=== PATIENT | male | born 1950 | race Caucasian/White ===

== ENCOUNTER 2023-05-01 17:01 | Inpatient (IN) | payer MEDICARE, SELFPAY ==
[~2023-05-01 17:01] MED LIST: Iopamidol-370 76% 500 ML MDV (1 ML CHARGE) ONE
[2023-05-01 18:03] LABS: #Eosinphils 0.3 thou/uL (0.0-0.7); #Monocytes 0.9 thou/uL (0.11-0.59); #Neutrophils 6.3 thou/uL (1.40-6.50); %Basophils 0.2 % (0.0-1.0); %Eosinophils 3.9 % (0.0-10.0); %Lymphocytes 12.5 % (21.0-51.0); %Neutrophils 72.7 % (42.0-75.0); Hematocrit 24.7 % (42.0-52.0); Mean Corpuscular HGB CONC 32.4 g/dL (32.0-36.0); Mean Corpuscular Hemoglobin 30.2 pg (27.0-31.0); Mean Corpuscular Volume 93.2 fl (78.0-98.0); Mean Platelet Volume 9.3 fL (7.4-10.4); Platelet Count 198 10x3/uL (130-400); RBC Distribution Width 15.3 % (11.5-14.5); Red Blood Cell (RBC) Count 2.65 mill/uL (4.70-6.10); White Blood Cell (WBC) Count 8.6 10x3/uL (4.8-10.8)
[2023-05-01 18:25] LABS: ALT (SGPT) 8 U/L (8-55); AST (SGOT) 11 U/L (5-34); Albumin 3.5 g/dL (3.4-4.8); Alkaline Phosphatase 52 U/L (40-110); Anion Gap 15 mmol/L (10-20); BUN (Urea Nitrogen) 19 mg/dL (8.4-25.7); Bilirubin, Total 0.4 mg/dL (0.2-1.2); Calc. Creatinine Clearance 0 mL/min (70-130); Calcium 8.5 mg/dL (7.8-10.44); Carbon Dioxide 23 mmol/L (23-31); Chloride 104 mmol/L (98-107); Estimated GFR 65; Globulin 3.3 g/dL (2.4-3.5); Glucose 104 mg/dL (83-110); Potassium 2.9 mmol/L (3.5-5.1); Protein, Total 6.8 g/dL (5.8-8.1); Sodium 139 mmol/L (136-145)
[2023-05-01 18:29] LABS: Troponin I 0.013 ng/mL (< 0.028)
[2023-05-01 19:27] LABS: Bacteria/HPF None Seen HPF (None Seen); Bilirubin Negative (Negative); Blood, Urine 1+ (Negative); CAUTI Indications for Culture Pelvic or flank pain; Clarity Extra Turbid (Clear); Glucose, Urine (Dipstick) Normal (Negative); Ketone, Urine Negative (Negative); Leukocyte Negative Leu/uL (Negative); Nitrite Negative (Negative); Protein, Urine (Dipstick) 100 mg/dL (Neg-Trace); RBC/HPF 0-3 HPF (0-3); Specific Gravity, Urine 1.012 (1.002-1.036); Squamous Epithelial None Seen HPF (0-3); Urobilinogen Normal mg/dL (Less than 2); WBC/HPF None Seen HPF (0-3); pH, Urine 5.5 (5.0-9.0)
[2023-05-01 19:31] LABS: Urine Culture Reflex No No
[2023-05-01] MEDS ORDERED: Ondansetron PF 4 MG/2 ML Vial ONE (19:34)
[2023-05-01] MEDS ORDERED: Potassium Chloride 20 MEQ/100 ML PREMIX BAG ONE (19:34)
[2023-05-01] MEDS ORDERED: Ondansetron ODT 4 MG TAB ONE (19:35)
[2023-05-01] MEDS ORDERED: Pot Chloride/Pot Bicarb/Cit Ac 25 mEq Effervescent Tablet ONE (19:52)
[2023-05-01 21:59] LABS: Anion Gap 15 mmol/L (10-20); BUN (Urea Nitrogen) 19 mg/dL (8.4-25.7); Calc. Creatinine Clearance 0 mL/min (70-130); Carbon Dioxide 23 mmol/L (23-31); Chloride 103 mmol/L (98-107); Potassium 3.3 mmol/L (3.5-5.1); Sodium 138 mmol/L (136-145)
[2023-05-01 22:00] LABS: Calcium 8.5 mg/dL (7.8-10.44); Estimated GFR 66; Glucose 117 mg/dL (83-110)
[2023-05-01] MEDS ORDERED: Ondansetron PF 4 MG/2 ML Vial IVP PRN (23:00)
[2023-05-01] MEDS ORDERED: Ondansetron ODT 4 MG TAB SL PRN (23:00)
[2023-05-01] MEDS ORDERED: Acetaminophen 325 MG TAB PO PRN ×2 (23:00→23:29)
[2023-05-01] MEDS ORDERED: Senokot S 8.6-50 MG TAB PO PRN (23:29)
[2023-05-01] MEDS ORDERED: Calcium Carbonate 500 MG ChewTAB PO PRN (23:29)
[2023-05-01] MEDS ORDERED: Electrolyte Replacement Protocol 1 EACH FS PRN (23:30)
[2023-05-01 23:59] LABS: Hemoglobin A1c 5.8 % (4.0-6.0)
[2023-05-02 00:45] VITALS: BMI 21.3
[2023-05-02] MEDS ORDERED: Potassium Chloride 20 MEQ TAB PO SCH (01:15)
[2023-05-02 04:11] LABS: #Eosinphils 0.2 thou/uL (0.0-0.7); #Neutrophils 6.1 thou/uL (1.40-6.50); %Basophils 0.4 % (0.0-1.0); %Eosinophils 2.9 % (0.0-10.0); %Lymphocytes 11.1 % (21.0-51.0); %Neutrophils 73.2 % (42.0-75.0); Hematocrit 22.8 % (42.0-52.0); Hemoglobin 7.5 g/dL (14.0-18.0); Mean Corpuscular HGB CONC 32.9 g/dL (32.0-36.0); Mean Corpuscular Hemoglobin 30.1 pg (27.0-31.0); Mean Corpuscular Volume 91.6 fl (78.0-98.0); Mean Platelet Volume 9.6 fL (7.4-10.4); Platelet Count 177 10x3/uL (130-400); Red Blood Cell (RBC) Count 2.49 mill/uL (4.70-6.10); White Blood Cell (WBC) Count 8.3 10x3/uL (4.8-10.8)
[2023-05-02 04:34] LABS: Anion Gap 13 mmol/L (10-20); BUN (Urea Nitrogen) 17 mg/dL (8.4-25.7); Calc. Creatinine Clearance 67 mL/min (70-130); Calcium 8.1 mg/dL (7.8-10.44); Carbon Dioxide 30 mmol/L (23-31); Chloride 103 mmol/L (98-107); Estimated GFR 76; Glucose 115 mg/dL (83-110); Potassium 2.9 mmol/L (3.5-5.1); Sodium 143 mmol/L (136-145)
[2023-05-02] MEDS: Potassium Chloride 20 MEQ TAB PO SCH ×3 (05:27→17:19)
[2023-05-02] MEDS ORDERED: hydrALAZINE 25 MG TAB PO PRN (07:42)
[2023-05-02 08:05] LABS: Magnesium 1.2 mg/dL (1.6-2.6)
[2023-05-02] MEDS: Famotidine 20 MG TAB PO SCH ×2 (08:37→21:50)
[2023-05-02] MEDS ORDERED: Magnesium Sulfate In Water 4 GM in Premix Bag 1 BAG IVPB SCH (08:45)
[2023-05-02 13:40] LABS: Hemoglobin A1c 5.9 % (4.0-6.0)
[2023-05-02 14:24] LABS: Vancomycin, Random 11.6 ug/mL (See Comment)
[2023-05-02] MEDS: metroNIDAZOLE 500 MG TAB PO SCH ×2 (14:49→22:48)
[2023-05-02 16:53] LABS: Amphetamine Not Detected (NotDetected); Barbiturates Screen Not Detected (NotDetected); Benzodiazepine Screen Not Detected (NotDetected); Cocaine Metabolite Screen Not Detected (NotDetected); Methadone Not Detected (NotDetected); Methamphetamine Not Detected (NotDetected); Opiate Screen Not Detected (NotDetected); Oxycodone Screen Not Detected (NotDetected); Phencyclidine (PCP) Not Detected (NotDetected); THC/Cannabinoid Screen Not Detected (NotDetected); Tricyclic Screen Not Detected (NotDetected)
[2023-05-02] MEDS: Vancomycin 1 GM in Premix Bag 1 BAG IVPB SCH (17:15)
[2023-05-02] MEDS ORDERED: Cefepime 1 GM VIAL IVPB SCH (21:00)
[2023-05-02] MEDS: Saccharomyces boulardii 250 MG CAP PO SCH (21:50)
[2023-05-02] MEDS: Cefepime 1 GM in Sodium Chloride 0.9% 100 ML IVPB SCH (21:50)
[2023-05-02] MEDS: Midodrine HCl 5 MG TAB PO SCH ×2 (21:57→22:50)
[2023-05-03] MEDS: metroNIDAZOLE 500 MG TAB PO SCH ×3 (05:10→20:03)
[2023-05-03 05:50] LABS: Magnesium 1.6 mg/dL (1.6-2.6)
[2023-05-03 07:32] LABS: #Eosinphils 0.2 thou/uL (0.0-0.7); #Monocytes 0.8 thou/uL (0.11-0.59); #Neutrophils 5.6 thou/uL (1.40-6.50); %Basophils 0.3 % (0.0-1.0); %Eosinophils 1.9 % (0.0-10.0); %Lymphocytes 15.7 % (21.0-51.0); %Monocytes 10.2 % (0.0-10.0); %Neutrophils 71.4 % (42.0-75.0); Hematocrit 23.9 % (42.0-52.0); Hemoglobin 7.7 g/dL (14.0-18.0); Mean Corpuscular HGB CONC 32.2 g/dL (32.0-36.0); Mean Corpuscular Hemoglobin 30.3 pg (27.0-31.0); Mean Corpuscular Volume 94.1 fl (78.0-98.0); Mean Platelet Volume 9.6 fL (7.4-10.4); Platelet Count 210 10x3/uL (130-400); RBC Distribution Width 15.1 % (11.5-14.5); Red Blood Cell (RBC) Count 2.54 mill/uL (4.70-6.10); White Blood Cell (WBC) Count 7.9 10x3/uL (4.8-10.8)
[2023-05-03] MEDS ORDERED: Magnesium 2 GM/50 ML(in water) 2 GM in Premix Bag 1 BAG IVPB SCH (08:00)
[2023-05-03 08:18] LABS: ALT (SGPT) 7 U/L (8-55); AST (SGOT) 9 U/L (5-34); Albumin 2.9 g/dL (3.4-4.8); Alkaline Phosphatase 44 U/L (40-110); Anion Gap 13 mmol/L (10-20); BUN (Urea Nitrogen) 12 mg/dL (8.4-25.7); Bilirubin, Total 0.3 mg/dL (0.2-1.2); Calc. Creatinine Clearance 81 mL/min (70-130); Calcium 7.9 mg/dL (7.8-10.44); Carbon Dioxide 32 mmol/L (23-31); Chloride 97 mmol/L (98-107); Estimated GFR 92; Globulin 2.8 g/dL (2.4-3.5); Glucose 113 mg/dL (83-110); Phosphorus 2.5 mg/dL (2.3-4.7); Potassium 2.7 mmol/L (3.5-5.1); Protein, Total 5.7 g/dL (5.8-8.1); Sodium 139 mmol/L (136-145)
[2023-05-03] MEDS: Tamsulosin HCl 0.4 MG CAP PO SCH (09:27)
[2023-05-03] MEDS: Multivitamin W/ Minerals 1 TAB PO SCH (09:27)
[2023-05-03] MEDS: Spironolactone 25 MG TAB PO SCH (09:27)
[2023-05-03] MEDS: Famotidine 20 MG TAB PO SCH (09:28)
[2023-05-03] MEDS: Potassium Chloride 20 MEQ TAB PO SCH ×4 (09:28→17:06)
[2023-05-03] MEDS: Midodrine HCl 5 MG TAB PO SCH (09:28)
[2023-05-03] MEDS: Zinc Sulfate 220 MG CAP PO SCH (09:28)
[2023-05-03] MEDS: Cefepime 1 GM in Sodium Chloride 0.9% 100 ML IVPB SCH (09:29)
[2023-05-03] MEDS: Saccharomyces boulardii 250 MG CAP PO SCH ×2 (09:29→20:03)
[2023-05-03] MEDS ORDERED: Potassium Chloride 20 MEQ TAB PO SCH ×2 (10:00→11:00)
[2023-05-03] MEDS ORDERED: Ondansetron PF 4 MG/2 ML Vial IVP PRN (11:27)
[2023-05-03] MEDS: NS 0.9% w/ 40 MEQ KCL 1,000 ML IV SCH (12:15)
[2023-05-03] MEDS: Vancomycin 1 GM in Premix Bag 1 BAG IVPB SCH (14:57)
[2023-05-03] MEDS: Cefepime 2 GM in Sodium Chloride 0.9% 100 ML IVPB SCH (20:02)
[2023-05-04 04:51] LABS: #Eosinphils 0.1 thou/uL (0.0-0.7); #Monocytes 0.7 thou/uL (0.11-0.59); #Neutrophils 7.2 thou/uL (1.40-6.50); %Basophils 0.1 % (0.0-1.0); %Eosinophils 0.7 % (0.0-10.0); %Lymphocytes 10.4 % (21.0-51.0); %Neutrophils 80.4 % (42.0-75.0); Hematocrit 24.2 % (42.0-52.0); Hemoglobin 7.8 g/dL (14.0-18.0); Mean Corpuscular HGB CONC 32.2 g/dL (32.0-36.0); Mean Corpuscular Volume 93.1 fl (78.0-98.0); Mean Platelet Volume 9.8 fL (7.4-10.4); Platelet Count 198 10x3/uL (130-400); RBC Distribution Width 14.8 % (11.5-14.5)
[2023-05-04 05:14] LABS: Anion Gap 11 mmol/L (10-20); BUN (Urea Nitrogen) 12 mg/dL (8.4-25.7); Calc. Creatinine Clearance 85 mL/min (70-130); Calcium 7.7 mg/dL (7.8-10.44); Carbon Dioxide 35 mmol/L (23-31); Chloride 97 mmol/L (98-107); Estimated GFR 93; Glucose 144 mg/dL (83-110); Iron 19 ug/dL (65-175); Iron Binding Capacity, Total 83 mcg/dL (261-462); Magnesium 1.5 mg/dL (1.6-2.6); Sodium 140 mmol/L (136-145)
[2023-05-04] MEDS: metroNIDAZOLE 500 MG TAB PO SCH ×2 (05:26→14:28)
[2023-05-04] MEDS ORDERED: Magnesium 2 GM/50 ML(in water) 2 GM in Premix Bag 1 BAG IVPB SCH ×2 (06:00→20:30)
[2023-05-04] MEDS: Cefepime 2 GM in Sodium Chloride 0.9% 100 ML IVPB SCH ×2 (08:25→20:26)
[2023-05-04] MEDS: Tamsulosin HCl 0.4 MG CAP PO SCH ×2 (08:29→08:45)
[2023-05-04] MEDS: Zinc Sulfate 220 MG CAP PO SCH ×2 (08:29→08:46)
[2023-05-04] MEDS: Spironolactone 25 MG TAB PO SCH ×2 (08:30→08:44)
[2023-05-04] MEDS: Saccharomyces boulardii 250 MG CAP PO SCH ×2 (08:31→08:44)
[2023-05-04] MEDS: Multivitamin W/ Minerals 1 TAB PO SCH ×2 (08:31→08:44)
[2023-05-04] MEDS: PHOS-NAK 1 PKT PACK PO SCH ×3 (08:31→12:11)
[2023-05-04] MEDS: Thiamine 100 MG TAB PO SCH (08:31)
[2023-05-04] MEDS: NS 0.9% w/ 40 MEQ KCL 1,000 ML IV SCH ×2 (08:32→20:27)
[2023-05-04] MEDS: Potassium Chloride 20 MEQ TAB PO SCH ×3 (08:32→16:40)
[2023-05-04] MEDS ORDERED: Potassium Chloride 20 MEQ TAB PO SCH (09:00)
[2023-05-04] MEDS: Vancomycin 1 GM in Premix Bag 1 BAG IVPB SCH (14:28)
[2023-05-04 14:33] LABS: Vancomycin, Trough 10.6 ug/mL
[2023-05-04] MEDS ORDERED: metroNIDAZOLE 500 MG in Premix Bag 1 BAG IVPB SCH (18:00)
[2023-05-04 20:05] LABS: Lactic Acid 0.6 mmol/L (0.5-2.2)
[2023-05-04 20:06] LABS: Anion Gap 10 mmol/L (10-20); BUN (Urea Nitrogen) 11 mg/dL (8.4-25.7); Calc. Creatinine Clearance 87 mL/min (70-130); Calcium 7.3 mg/dL (7.8-10.44); Carbon Dioxide 34 mmol/L (23-31); Chloride 97 mmol/L (98-107); Estimated GFR 94; Glucose 109 mg/dL (83-110); Magnesium 1.7 mg/dL (1.6-2.6); Potassium 3.1 mmol/L (3.5-5.1); Sodium 138 mmol/L (136-145)
[2023-05-04] MEDS: metroNIDAZOLE 500 MG in Premix Bag 1 BAG IVPB SCH (20:26)
[2023-05-04] MEDS ORDERED: Potassium Chloride 20 MEQ in Premix Bag 1 BAG IVPB SCH (20:30)
[2023-05-04 20:44] LABS: Actual Bicarbonate (HCO3a) 36.9 mEq/L (22-28); Base Excess (BEa) 11.9 mEq/L (-2.0 to +3.0); Calcium, Ionized (arterial) 0.98 mmol/L (1.12-1.30); Carboxyhemoglobin (COHb) 1.5 gm% (0.0-3.0); Hematocrit-ABG 24 % (42.0-52.0); Potassium - ABG Lab 3.11 mmol/L (3.70-5.30); pH, Arterial 7.469 (7.35-7.45)
[2023-05-04 20:46] LABS: O2 Tension (PaO2), arterial 49.3 mmHg (> 70.0); Puncture Site RRA
[2023-05-04] MEDS ORDERED: Potassium Phosphate 15 MMOL in Sodium Chloride 0.9% 100 ML IVPB SCH (21:00)
[2023-05-05] MEDS: Vancomycin HCl 750 MG in Sodium Chloride 0.9% 250 ML 250 ML IVPB SCH ×2 (03:00→15:19)
[2023-05-05] MEDS: metroNIDAZOLE 500 MG in Premix Bag 1 BAG IVPB SCH ×3 (06:03→21:53)
[2023-05-05 07:00] LABS: Actual Bicarbonate (HCO3a) 32.7 mEq/L (22-28); Base Excess (BEa) 8.2 mEq/L (-2.0 to +3.0); CO2 Tension 46.3 mmHg (35.0-45.0); O2 Tension (PaO2), arterial 63.9 mmHg (> 70.0); pH, Arterial 7.467 (7.35-7.45)
[2023-05-05 07:01] LABS: ALV-art Gradient 27.955 mmHg (0-20); Carboxyhemoglobin (COHb) 1.2 gm% (0.0-3.0); Hematocrit-ABG 23 % (42.0-52.0); Hemoglobin (Hb) 7.7 g/dL (14.0-18.0); Potassium - ABG Lab 3.46 mmol/L (3.70-5.30); Puncture Site RRA
[2023-05-05] MEDS: Tamsulosin HCl 0.4 MG CAP PO SCH (08:45)
[2023-05-05] MEDS: Multivitamin W/ Minerals 1 TAB PO SCH (08:45)
[2023-05-05] MEDS: Cefepime 2 GM in Sodium Chloride 0.9% 100 ML IVPB SCH ×2 (08:45→19:56)
[2023-05-05] MEDS: Thiamine 100 MG TAB PO SCH (08:46)
[2023-05-05] MEDS: Zinc Sulfate 220 MG CAP PO SCH (08:46)
[2023-05-05] MEDS: NS 0.9% w/ 40 MEQ KCL 1,000 ML IV SCH ×2 (09:04→21:54)
[2023-05-05 09:21] LABS: Potassium 3.5 mmol/L (3.5-5.1)
[2023-05-05] MEDS ORDERED: Potassium Chloride 20 MEQ TAB PO SCH ×2 (09:44→14:00)
[2023-05-05 11:23] LABS: Anion Gap 10 mmol/L (10-20); BUN (Urea Nitrogen) 12 mg/dL (8.4-25.7); Calc. Creatinine Clearance 88 mL/min (70-130); Calcium 7.3 mg/dL (7.8-10.44); Carbon Dioxide 32 mmol/L (23-31); Chloride 99 mmol/L (98-107); Estimated GFR 94; Glucose 99 mg/dL (83-110); Potassium 3.5 mmol/L (3.5-5.1); Sodium 137 mmol/L (136-145)
[2023-05-06] MEDS: Vancomycin HCl 750 MG in Sodium Chloride 0.9% 250 ML 250 ML IVPB SCH ×2 (02:33→16:00)
[2023-05-06 04:33] LABS: #Monocytes 0.7 thou/uL (0.11-0.59); #Neutrophils 6.5 thou/uL (1.40-6.50); %Basophils 0.1 % (0.0-1.0); %Eosinophils 0.1 % (0.0-10.0); %Lymphocytes 10.5 % (21.0-51.0); %Monocytes 8.7 % (0.0-10.0); %Neutrophils 80.1 % (42.0-75.0); Hematocrit 23.2 % (42.0-52.0); Hemoglobin 7.5 g/dL (14.0-18.0); Mean Corpuscular HGB CONC 32.3 g/dL (32.0-36.0); Mean Corpuscular Hemoglobin 30.1 pg (27.0-31.0); Mean Corpuscular Volume 93.2 fl (78.0-98.0); Mean Platelet Volume 9.5 fL (7.4-10.4); Platelet Count 195 10x3/uL (130-400); RBC Distribution Width 14.5 % (11.5-14.5); Red Blood Cell (RBC) Count 2.49 mill/uL (4.70-6.10); White Blood Cell (WBC) Count 8.1 10x3/uL (4.8-10.8)
[2023-05-06 04:58] LABS: Anion Gap 15 mmol/L (10-20); BUN (Urea Nitrogen) 12 mg/dL (8.4-25.7); Calc. Creatinine Clearance 93 mL/min (70-130); Calcium 7.3 mg/dL (7.8-10.44); Carbon Dioxide 29 mmol/L (23-31); Chloride 101 mmol/L (98-107); Estimated GFR 96; Glucose 64 mg/dL (83-110); Magnesium 1.5 mg/dL (1.6-2.6); Phosphorus 2.2 mg/dL (2.3-4.7); Potassium 3.5 mmol/L (3.5-5.1); Sodium 141 mmol/L (136-145)
[2023-05-06] MEDS: metroNIDAZOLE 500 MG in Premix Bag 1 BAG IVPB SCH ×3 (05:47→21:07)
[2023-05-06] MEDS ORDERED: Magnesium 2 GM/50 ML(in water) 2 GM in Premix Bag 1 BAG IVPB SCH (08:00)
[2023-05-06] MEDS ORDERED: Potassium Chloride 20 MEQ TAB PO SCH (08:00)
[2023-05-06] MEDS: Tamsulosin HCl 0.4 MG CAP PO SCH (08:03)
[2023-05-06] MEDS: Multivitamin W/ Minerals 1 TAB PO SCH (08:03)
[2023-05-06] MEDS: Thiamine 100 MG TAB PO SCH (08:03)
[2023-05-06] MEDS: Zinc Sulfate 220 MG CAP PO SCH (08:04)
[2023-05-06] MEDS: PHOS-NAK 1 PKT PACK PO SCH ×2 (08:56→19:49)
[2023-05-06] MEDS: Cefepime 2 GM in Sodium Chloride 0.9% 100 ML IVPB SCH ×2 (08:56→19:48)
[2023-05-06] MEDS: NS 0.9% w/ 40 MEQ KCL 1,000 ML IV SCH (11:32)
[2023-05-06 15:24] LABS: Vancomycin, Trough 13.1 ug/mL
[2023-05-07] MEDS: NS 0.9% w/ 40 MEQ KCL 1,000 ML IV SCH (02:23)
[2023-05-07] MEDS: Vancomycin HCl 750 MG in Sodium Chloride 0.9% 250 ML 250 ML IVPB SCH ×2 (02:23→16:23)
[2023-05-07] MEDS: metroNIDAZOLE 500 MG in Premix Bag 1 BAG IVPB SCH ×2 (05:25→14:20)
[2023-05-07] MEDS: Cefepime 2 GM in Sodium Chloride 0.9% 100 ML IVPB SCH ×2 (09:58→21:34)
[2023-05-07] MEDS: Tamsulosin HCl 0.4 MG CAP PO SCH ×2 (09:59→10:21)
[2023-05-07] MEDS: PHOS-NAK 1 PKT PACK PO SCH (09:59)
[2023-05-07] MEDS: Zinc Sulfate 220 MG CAP PO SCH ×2 (09:59→10:21)
[2023-05-07] MEDS: Ondansetron PF 4 MG/2 ML Vial IVP PRN (09:59)
[2023-05-07] MEDS: Thiamine 100 MG TAB PO SCH ×2 (09:59→10:21)
[2023-05-07] MEDS: Multivitamin W/ Minerals 1 TAB PO SCH ×2 (09:59→10:20)
[2023-05-07] MEDS ORDERED: Pantoprazole 40 MG VIAL IVP SCH (13:45)
[2023-05-07] MEDS: D5W-AA 4.25% with LYTES 1,000 ML IV SCH (14:17)
[2023-05-07] MEDS: Pantoprazole 40 MG VIAL IVP SCH (21:34)
[2023-05-08] MEDS: metroNIDAZOLE 500 MG in Premix Bag 1 BAG IVPB SCH ×4 (00:25→23:10)
[2023-05-08] MEDS: NS 0.9% w/ 40 MEQ KCL 1,000 ML IV SCH ×3 (02:00→13:41)
[2023-05-08 02:40] LABS: #Monocytes 0.7 thou/uL (0.11-0.59); #Neutrophils 6.2 thou/uL (1.40-6.50); %Basophils 0.1 % (0.0-1.0); %Eosinophils 0.1 % (0.0-10.0); %Lymphocytes 10.7 % (21.0-51.0); %Monocytes 8.4 % (0.0-10.0); %Neutrophils 80.1 % (42.0-75.0); Hemoglobin 7.6 g/dL (14.0-18.0); Mean Corpuscular Volume 90.9 fl (78.0-98.0); Platelet Count 211 10x3/uL (130-400); RBC Distribution Width 14.5 % (11.5-14.5); Red Blood Cell (RBC) Count 2.53 mill/uL (4.70-6.10); White Blood Cell (WBC) Count 7.8 10x3/uL (4.8-10.8)
[2023-05-08 03:07] LABS: Vancomycin, Trough 15.1 ug/mL
[2023-05-08 03:12] LABS: Anion Gap 13 mmol/L (10-20); BUN (Urea Nitrogen) 13 mg/dL (8.4-25.7); CRP (Inflammatory) 3.75 mg/dL (= or < 0.5); Calc. Creatinine Clearance 91 mL/min (70-130); Calcium 7.2 mg/dL (7.8-10.44); Carbon Dioxide 31 mmol/L (23-31); Chloride 97 mmol/L (98-107); Estimated GFR 96; Glucose 134 mg/dL (83-110); Potassium 3.5 mmol/L (3.5-5.1); Sodium 137 mmol/L (136-145)
[2023-05-08] MEDS: Vancomycin HCl 750 MG in Sodium Chloride 0.9% 250 ML 250 ML IVPB SCH ×2 (03:46→14:36)
[2023-05-08] MEDS ORDERED: Potassium Chloride 20 MEQ TAB PO SCH (08:00)
[2023-05-08] MEDS: Cefepime 2 GM in Sodium Chloride 0.9% 100 ML IVPB SCH ×2 (08:39→21:26)
[2023-05-08] MEDS: Spironolactone 25 MG TAB PO SCH (08:45)
[2023-05-08] MEDS: Thiamine 100 MG TAB PO SCH (08:45)
[2023-05-08] MEDS: Zinc Sulfate 220 MG CAP PO SCH (08:45)
[2023-05-08] MEDS: Tamsulosin HCl 0.4 MG CAP PO SCH (08:45)
[2023-05-08] MEDS: Multivitamin W/ Minerals 1 TAB PO SCH (08:45)
[2023-05-08] MEDS: Pantoprazole 40 MG VIAL IVP SCH ×2 (09:04→21:26)
[2023-05-08] MEDS: D5W-AA 4.25% with LYTES 1,000 ML IV SCH (11:00)
[2023-05-08] MEDS: Nystatin 500,000 UNITS/5 ML UDCUP SSW SCH ×3 (13:35→21:27)
[2023-05-08 14:06] LABS: Potassium 3.8 mmol/L (3.5-5.1)
[2023-05-09] MEDS: Vancomycin HCl 750 MG in Sodium Chloride 0.9% 250 ML 250 ML IVPB SCH ×2 (04:28→16:32)
[2023-05-09] MEDS: NS 0.9% w/ 40 MEQ KCL 1,000 ML IV SCH ×2 (04:28→21:33)
[2023-05-09] MEDS: metroNIDAZOLE 500 MG in Premix Bag 1 BAG IVPB SCH ×3 (05:59→22:56)
[2023-05-09] MEDS: Multivitamin W/ Minerals 1 TAB PO SCH (10:30)
[2023-05-09] MEDS: Cefepime 2 GM in Sodium Chloride 0.9% 100 ML IVPB SCH ×2 (10:30→21:35)
[2023-05-09] MEDS: Nystatin 500,000 UNITS/5 ML UDCUP SSW SCH ×4 (10:30→21:36)
[2023-05-09] MEDS: Spironolactone 25 MG TAB PO SCH (10:31)
[2023-05-09] MEDS: Tamsulosin HCl 0.4 MG CAP PO SCH (10:31)
[2023-05-09] MEDS: Thiamine 100 MG TAB PO SCH (10:31)
[2023-05-09] MEDS: Pantoprazole 40 MG VIAL IVP SCH ×2 (10:31→21:37)
[2023-05-09] MEDS: Zinc Sulfate 220 MG CAP PO SCH (10:31)
[2023-05-09] MEDS: D5W-AA 4.25% with LYTES 1,000 ML IV SCH (15:04)
[2023-05-10] MEDS: Vancomycin HCl 750 MG in Sodium Chloride 0.9% 250 ML 250 ML IVPB SCH ×2 (03:13→15:44)
[2023-05-10] MEDS: metroNIDAZOLE 500 MG in Premix Bag 1 BAG IVPB SCH ×2 (05:21→12:54)
[2023-05-10] MEDS: Cefepime 2 GM in Sodium Chloride 0.9% 100 ML IVPB SCH ×2 (09:36→21:18)
[2023-05-10] MEDS: Pantoprazole 40 MG VIAL IVP SCH ×2 (09:37→21:18)
[2023-05-10] MEDS: Tamsulosin HCl 0.4 MG CAP PO SCH (10:05)
[2023-05-10] MEDS: Spironolactone 25 MG TAB PO SCH (10:05)
[2023-05-10] MEDS: Multivitamin W/ Minerals 1 TAB PO SCH (10:05)
[2023-05-10] MEDS: Nystatin 500,000 UNITS/5 ML UDCUP SSW SCH ×4 (10:05→21:17)
[2023-05-10] MEDS: Thiamine 100 MG TAB PO SCH (10:08)
[2023-05-10] MEDS: Zinc Sulfate 220 MG CAP PO SCH (10:08)
[2023-05-10] MEDS: D5W-AA 4.25% with LYTES 1,000 ML IV SCH ×2 (12:51→21:10)
[2023-05-10] MEDS: NS 0.9% w/ 40 MEQ KCL 1,000 ML IV SCH (17:13)
[2023-05-10] MEDS ORDERED: LYTES IV SCH (20:00)
[2023-05-10] MEDS ORDERED: FAT EMULSION IV SCH (20:00)
[2023-05-10] MEDS ORDERED: [UNRECOGNIZED DRUG - OTHER] IV SCH (20:00)
[2023-05-10] MEDS: Fat Emulsion 250 ML IVPB SCH (21:10)
[2023-05-10] MEDS: Mirtazapine 15 MG Soltab PO SCH (21:17)
[2023-05-11] MEDS: metroNIDAZOLE 500 MG in Premix Bag 1 BAG IVPB SCH ×4 (00:44→23:07)
[2023-05-11] MEDS: NS 0.9% w/ 40 MEQ KCL 1,000 ML IV SCH ×2 (00:45→10:27)
[2023-05-11] MEDS: Vancomycin HCl 750 MG in Sodium Chloride 0.9% 250 ML 250 ML IVPB SCH ×2 (04:52→17:59)
[2023-05-11 05:18] LABS: #Monocytes 0.8 thou/uL (0.11-0.59); #Neutrophils 7.3 thou/uL (1.40-6.50); %Basophils 0.1 % (0.0-1.0); %Lymphocytes 10.4 % (21.0-51.0); %Monocytes 8.6 % (0.0-10.0); %Neutrophils 80.1 % (42.0-75.0); Hematocrit 25.7 % (42.0-52.0); Hemoglobin 8.5 g/dL (14.0-18.0); Mean Corpuscular HGB CONC 33.1 g/dL (32.0-36.0); Mean Corpuscular Hemoglobin 30.4 pg (27.0-31.0); Mean Corpuscular Volume 91.8 fl (78.0-98.0); Mean Platelet Volume 9.4 fL (7.4-10.4); Platelet Count 208 10x3/uL (130-400); RBC Distribution Width 15.1 % (11.5-14.5); White Blood Cell (WBC) Count 9.2 10x3/uL (4.8-10.8)
[2023-05-11 07:46] LABS: Anion Gap 12 mmol/L (10-20); BUN (Urea Nitrogen) 13 mg/dL (8.4-25.7); Calc. Creatinine Clearance 93 mL/min (70-130); Calcium 7.7 mg/dL (7.8-10.44); Carbon Dioxide 26 mmol/L (23-31); Chloride 101 mmol/L (98-107); Estimated GFR 96; Glucose 137 mg/dL (83-110); Magnesium 1.3 mg/dL (1.6-2.6); Potassium 3.9 mmol/L (3.5-5.1); Sodium 135 mmol/L (136-145)
[2023-05-11] MEDS ORDERED: Iopamidol 370 76% 100 ML VIAL ONE (09:26)
[2023-05-11] MEDS: Multivitamin W/ Minerals 1 TAB PO SCH (10:25)
[2023-05-11] MEDS: Zinc Sulfate 220 MG CAP PO SCH (10:25)
[2023-05-11] MEDS: Thiamine 100 MG TAB PO SCH (10:25)
[2023-05-11] MEDS: Cefepime 2 GM in Sodium Chloride 0.9% 100 ML IVPB SCH ×2 (10:30→20:34)
[2023-05-11] MEDS: Pantoprazole 40 MG VIAL IVP SCH ×2 (10:31→20:39)
[2023-05-11] MEDS: Nystatin 500,000 UNITS/5 ML UDCUP SSW SCH ×4 (10:38→20:34)
[2023-05-11] MEDS: Tamsulosin HCl 0.4 MG CAP PO SCH (10:38)
[2023-05-11] MEDS: Spironolactone 25 MG TAB PO SCH (10:43)
[2023-05-11] MEDS: Ondansetron PF 4 MG/2 ML Vial IVP PRN (11:01)
[2023-05-11] MEDS: Fat Emulsion 250 ML IVPB SCH ×2 (11:29→23:39)
[2023-05-11] MEDS ORDERED: Magnesium Sulfate In Water 4 GM in Premix Bag 1 BAG IVPB SCH (11:45)
[2023-05-11] MEDS: Mirtazapine 15 MG Soltab PO SCH (20:35)
[2023-05-11] MEDS: D5W-AA 4.25% with LYTES 1,000 ML IV SCH (20:40)
[2023-05-12] MEDS: NS 0.9% w/ 40 MEQ KCL 1,000 ML IV SCH ×2 (04:21→22:19)
[2023-05-12] MEDS: Vancomycin HCl 750 MG in Sodium Chloride 0.9% 250 ML 250 ML IVPB SCH ×2 (04:21→16:58)
[2023-05-12] MEDS: metroNIDAZOLE 500 MG in Premix Bag 1 BAG IVPB SCH ×3 (05:34→23:22)
[2023-05-12] MEDS: Cefepime 2 GM in Sodium Chloride 0.9% 100 ML IVPB SCH ×2 (08:47→22:19)
[2023-05-12] MEDS: Pantoprazole 40 MG VIAL IVP SCH ×2 (08:49→22:20)
[2023-05-12] MEDS: Nystatin 500,000 UNITS/5 ML UDCUP SSW SCH ×3 (08:49→22:20)
[2023-05-12] MEDS: Multivitamin W/ Minerals 1 TAB PO SCH (08:49)
[2023-05-12] MEDS: Zinc Sulfate 220 MG CAP PO SCH (08:50)
[2023-05-12] MEDS: Tamsulosin HCl 0.4 MG CAP PO SCH (08:50)
[2023-05-12] MEDS: Spironolactone 25 MG TAB PO SCH (08:50)
[2023-05-12] MEDS: Thiamine 100 MG TAB PO SCH (08:50)
[2023-05-12] MEDS ORDERED: Magnesium 2 GM/50 ML(in water) 2 GM in Premix Bag 1 BAG IVPB SCH (10:15)
[2023-05-12] MEDS: Fat Emulsion 250 ML IVPB SCH (18:04)
[2023-05-12] MEDS: D5W-AA 4.25% with LYTES 1,000 ML IV SCH (18:04)
[2023-05-12] MEDS: Mirtazapine 15 MG Soltab PO SCH (22:21)
[2023-05-13 04:29] LABS: #Monocytes 0.6 thou/uL (0.11-0.59); #Neutrophils 6.3 thou/uL (1.40-6.50); %Basophils 0.1 % (0.0-1.0); %Lymphocytes 7.5 % (21.0-51.0); %Monocytes 8.5 % (0.0-10.0); %Neutrophils 83.1 % (42.0-75.0); Hematocrit 25.2 % (42.0-52.0); Hemoglobin 8.4 g/dL (14.0-18.0); Mean Corpuscular HGB CONC 33.3 g/dL (32.0-36.0); Mean Corpuscular Hemoglobin 30.2 pg (27.0-31.0); Mean Corpuscular Volume 90.6 fl (78.0-98.0); Mean Platelet Volume 10.1 fL (7.4-10.4); Platelet Count 179 10x3/uL (130-400); RBC Distribution Width 15.3 % (11.5-14.5); Red Blood Cell (RBC) Count 2.78 mill/uL (4.70-6.10); White Blood Cell (WBC) Count 7.6 10x3/uL (4.8-10.8)
[2023-05-13] MEDS: NS 0.9% w/ 40 MEQ KCL 1,000 ML IV SCH ×2 (04:48→17:45)
[2023-05-13] MEDS: metroNIDAZOLE 500 MG in Premix Bag 1 BAG IVPB SCH ×3 (04:48→21:17)
[2023-05-13 05:00] LABS: Vancomycin, Trough 15.4 ug/mL
[2023-05-13 05:02] LABS: Anion Gap 14 mmol/L (10-20); BUN (Urea Nitrogen) 12 mg/dL (8.4-25.7); Calc. Creatinine Clearance 93 mL/min (70-130); Calcium 7.9 mg/dL (7.8-10.44); Carbon Dioxide 22 mmol/L (23-31); Chloride 103 mmol/L (98-107); Estimated GFR 96; Glucose 137 mg/dL (83-110); Magnesium 1.6 mg/dL (1.6-2.6); Potassium 4.2 mmol/L (3.5-5.1); Sodium 135 mmol/L (136-145)
[2023-05-13] MEDS: Vancomycin HCl 750 MG in Sodium Chloride 0.9% 250 ML 250 ML IVPB SCH ×3 (05:20→17:44)
[2023-05-13] MEDS ORDERED: Magnesium 2 GM/50 ML(in water) 2 GM in Premix Bag 1 BAG IVPB SCH (08:00)
[2023-05-13] MEDS: Cefepime 2 GM in Sodium Chloride 0.9% 100 ML IVPB SCH ×2 (10:06→20:08)
[2023-05-13] MEDS: Multivitamin W/ Minerals 1 TAB PO SCH (10:08)
[2023-05-13] MEDS: Nystatin 500,000 UNITS/5 ML UDCUP SSW SCH ×4 (10:08→20:12)
[2023-05-13] MEDS: Spironolactone 25 MG TAB PO SCH (10:11)
[2023-05-13] MEDS: Pantoprazole 40 MG VIAL IVP SCH ×2 (10:11→20:08)
[2023-05-13] MEDS: Zinc Sulfate 220 MG CAP PO SCH (10:15)
[2023-05-13] MEDS: Thiamine 100 MG TAB PO SCH (10:15)
[2023-05-13] MEDS: Tamsulosin HCl 0.4 MG CAP PO SCH (10:15)
[2023-05-13] MEDS: Fat Emulsion 250 ML IVPB SCH (13:53)
[2023-05-13] MEDS: D5W-AA 4.25% with LYTES 1,000 ML IV SCH (13:54)
[2023-05-13] MEDS: Ondansetron PF 4 MG/2 ML Vial IVP PRN (18:17)
[2023-05-13] MEDS: Mirtazapine 15 MG Soltab PO SCH (20:13)
[2023-05-14] MEDS: Fat Emulsion 250 ML IVPB SCH ×2 (02:23→16:21)
[2023-05-14] MEDS: metroNIDAZOLE 500 MG in Premix Bag 1 BAG IVPB SCH ×3 (05:04→22:55)
[2023-05-14 06:03] LABS: #Monocytes 0.9 thou/uL (0.11-0.59); #Neutrophils 6.8 thou/uL (1.40-6.50); %Basophils 0.1 % (0.0-1.0); %Lymphocytes 8.3 % (21.0-51.0); %Monocytes 10.2 % (0.0-10.0); %Neutrophils 80.7 % (42.0-75.0); Hematocrit 25.4 % (42.0-52.0); Hemoglobin 8.5 g/dL (14.0-18.0); Mean Corpuscular HGB CONC 33.5 g/dL (32.0-36.0); Mean Corpuscular Hemoglobin 30.8 pg (27.0-31.0); Mean Platelet Volume 9.9 fL (7.4-10.4); Platelet Count 177 10x3/uL (130-400); RBC Distribution Width 15.4 % (11.5-14.5); Red Blood Cell (RBC) Count 2.76 mill/uL (4.70-6.10); White Blood Cell (WBC) Count 8.4 10x3/uL (4.8-10.8)
[2023-05-14] MEDS: Vancomycin HCl 750 MG in Sodium Chloride 0.9% 250 ML 250 ML IVPB SCH ×2 (06:15→18:35)
[2023-05-14] MEDS: NS 0.9% w/ 40 MEQ KCL 1,000 ML IV SCH ×3 (06:20→20:37)
[2023-05-14 06:31] LABS: Anion Gap 14 mmol/L (10-20); BUN (Urea Nitrogen) 13 mg/dL (8.4-25.7); Calc. Creatinine Clearance 96 mL/min (70-130); Calcium 8.1 mg/dL (7.8-10.44); Carbon Dioxide 24 mmol/L (23-31); Chloride 102 mmol/L (98-107); Estimated GFR 97; Glucose 143 mg/dL (83-110); Potassium 4.3 mmol/L (3.5-5.1); Sodium 136 mmol/L (136-145)
[2023-05-14] MEDS: Cefepime 2 GM in Sodium Chloride 0.9% 100 ML IVPB SCH ×2 (08:47→21:48)
[2023-05-14] MEDS: Pantoprazole 40 MG VIAL IVP SCH ×2 (08:47→20:20)
[2023-05-14] MEDS: Spironolactone 25 MG TAB PO SCH (09:05)
[2023-05-14] MEDS: Nystatin 500,000 UNITS/5 ML UDCUP SSW SCH ×5 (09:05→20:32)
[2023-05-14] MEDS: Tamsulosin HCl 0.4 MG CAP PO SCH ×2 (09:05→13:53)
[2023-05-14] MEDS: Multivitamin W/ Minerals 1 TAB PO SCH (09:05)
[2023-05-14] MEDS: Thiamine 100 MG TAB PO SCH (09:06)
[2023-05-14] MEDS: Zinc Sulfate 220 MG CAP PO SCH (09:06)
[2023-05-14] MEDS: D5W-AA 4.25% with LYTES 1,000 ML IV SCH (11:18)
[2023-05-14] MEDS: Ondansetron PF 4 MG/2 ML Vial IVP PRN (13:54)
[2023-05-14] MEDS ORDERED: Mirtazapine 15 MG TAB PO SCH (14:00)
[2023-05-14 17:36] LABS: Vancomycin, Trough 14.6 ug/mL
[2023-05-14] MEDS: Vancomycin 1 GM in Premix Bag 1 BAG IVPB SCH (20:19)
[2023-05-14] MEDS: Mirtazapine 15 MG Soltab PO SCH (20:25)
[2023-05-15] MEDS: metroNIDAZOLE 500 MG in Premix Bag 1 BAG IVPB SCH ×3 (05:29→22:34)
[2023-05-15] MEDS: Fat Emulsion 250 ML IVPB SCH ×2 (05:48→18:10)
[2023-05-15] MEDS: D5W-AA 4.25% with LYTES 1,000 ML IV SCH (06:57)
[2023-05-15 08:47] LABS: #Monocytes 0.9 thou/uL (0.11-0.59); #Neutrophils 6.8 thou/uL (1.40-6.50); %Lymphocytes 7.7 % (21.0-51.0); %Monocytes 10.1 % (0.0-10.0); %Neutrophils 81.5 % (42.0-75.0); Hematocrit 26.7 % (42.0-52.0); Hemoglobin 8.7 g/dL (14.0-18.0); Mean Corpuscular HGB CONC 32.6 g/dL (32.0-36.0); Mean Corpuscular Hemoglobin 30.5 pg (27.0-31.0); Mean Corpuscular Volume 93.7 fl (78.0-98.0); Mean Platelet Volume 9.7 fL (7.4-10.4); Platelet Count 170 10x3/uL (130-400); RBC Distribution Width 15.6 % (11.5-14.5); Red Blood Cell (RBC) Count 2.85 mill/uL (4.70-6.10); White Blood Cell (WBC) Count 8.4 10x3/uL (4.8-10.8)
[2023-05-15] MEDS: Vancomycin 1 GM in Premix Bag 1 BAG IVPB SCH ×2 (08:59→20:21)
[2023-05-15] MEDS: Cefepime 2 GM in Sodium Chloride 0.9% 100 ML IVPB SCH ×2 (09:00→21:48)
[2023-05-15] MEDS: Tamsulosin HCl 0.4 MG CAP PO SCH ×2 (09:00→09:14)
[2023-05-15] MEDS: NS 0.9% w/ 40 MEQ KCL 1,000 ML IV SCH (09:04)
[2023-05-15 09:06] LABS: Phosphorus 3.2 mg/dL (2.3-4.7)
[2023-05-15] MEDS: Pantoprazole 40 MG VIAL IVP SCH ×2 (09:08→21:48)
[2023-05-15] MEDS: Multivitamin W/ Minerals 1 TAB PO SCH (09:08)
[2023-05-15] MEDS: Thiamine 100 MG TAB PO SCH (09:08)
[2023-05-15] MEDS: Spironolactone 25 MG TAB PO SCH (09:08)
[2023-05-15] MEDS: Nystatin 500,000 UNITS/5 ML UDCUP SSW SCH ×4 (09:08→21:26)
[2023-05-15] MEDS: Zinc Sulfate 220 MG CAP PO SCH (09:09)
[2023-05-15 09:11] LABS: ALT (SGPT) Less than 7 U/L (8-55); AST (SGOT) 7 U/L (5-34); Alkaline Phosphatase 47 U/L (40-110); Anion Gap 11 mmol/L (10-20); BUN (Urea Nitrogen) 13 mg/dL (8.4-25.7); Bilirubin, Total 0.2 mg/dL (0.2-1.2); Calc. Creatinine Clearance 99 mL/min (70-130); Calcium 8.2 mg/dL (7.8-10.44); Carbon Dioxide 26 mmol/L (23-31); Chloride 103 mmol/L (98-107); Estimated GFR 98; Globulin 2.9 g/dL (2.4-3.5); Glucose 146 mg/dL (83-110); Magnesium 1.6 mg/dL (1.6-2.6); Potassium 4.2 mmol/L (3.5-5.1); Protein, Total 5.9 g/dL (5.8-8.1); Sodium 136 mmol/L (136-145)
[2023-05-15] MEDS ORDERED: Magnesium 2 GM/50 ML(in water) 2 GM in Premix Bag 1 BAG IVPB SCH (10:00)
[2023-05-15] MEDS: Mirtazapine 15 MG Soltab PO SCH (20:22)
[2023-05-16] MEDS: D5W-AA 4.25% with LYTES 1,000 ML IV SCH ×2 (02:47→18:36)
[2023-05-16] MEDS: NS 0.9% w/ 40 MEQ KCL 1,000 ML IV SCH ×3 (02:55→21:24)
[2023-05-16] MEDS: metroNIDAZOLE 500 MG in Premix Bag 1 BAG IVPB SCH ×3 (05:23→22:10)
[2023-05-16] MEDS: Fat Emulsion 250 ML IVPB SCH (05:32)
[2023-05-16 08:03] LABS: Vancomycin, Trough 24.1 ug/mL
[2023-05-16] MEDS: Vancomycin 1 GM in Premix Bag 1 BAG IVPB SCH (09:11)
[2023-05-16] MEDS: Cefepime 2 GM in Sodium Chloride 0.9% 100 ML IVPB SCH ×2 (09:15→20:28)
[2023-05-16] MEDS: Pantoprazole 40 MG VIAL IVP SCH ×2 (09:18→20:29)
[2023-05-16] MEDS: Tamsulosin HCl 0.4 MG CAP PO SCH (09:21)
[2023-05-16] MEDS: Thiamine 100 MG TAB PO SCH (09:21)
[2023-05-16] MEDS: Spironolactone 25 MG TAB PO SCH (09:22)
[2023-05-16] MEDS: Nystatin 500,000 UNITS/5 ML UDCUP SSW SCH ×4 (09:53→20:29)
[2023-05-16] MEDS: Multivitamin W/ Minerals 1 TAB PO SCH (09:53)
[2023-05-16] MEDS: Vancomycin HCl 750 MG in Sodium Chloride 0.9% 250 ML 250 ML IVPB SCH ×2 (09:53→23:14)
[2023-05-16] MEDS: Zinc Sulfate 220 MG CAP PO SCH (09:53)
[2023-05-16] MEDS: Mirtazapine 15 MG Soltab PO SCH (20:29)
[2023-05-17] MEDS: metroNIDAZOLE 500 MG in Premix Bag 1 BAG IVPB SCH ×2 (05:22→12:59)
[2023-05-17] MEDS ORDERED: Fat Emulsion 500 ML IVPB SCH (06:00)
[2023-05-17] MEDS: Tamsulosin HCl 0.4 MG CAP PO SCH (08:55)
[2023-05-17] MEDS: Spironolactone 25 MG TAB PO SCH (08:55)
[2023-05-17] MEDS: Cefepime 2 GM in Sodium Chloride 0.9% 100 ML IVPB SCH ×2 (08:55→21:01)
[2023-05-17] MEDS: Pantoprazole 40 MG VIAL IVP SCH ×2 (08:55→21:03)
[2023-05-17] MEDS: Multivitamin W/ Minerals 1 TAB PO SCH (09:33)
[2023-05-17] MEDS: Nystatin 500,000 UNITS/5 ML UDCUP SSW SCH ×3 (09:33→16:58)
[2023-05-17] MEDS: Thiamine 100 MG TAB PO SCH (09:34)
[2023-05-17] MEDS: Zinc Sulfate 220 MG CAP PO SCH (09:34)
[2023-05-17] MEDS: Vancomycin HCl 750 MG in Sodium Chloride 0.9% 250 ML 250 ML IVPB SCH ×2 (10:16→23:17)
[2023-05-17] MEDS: NS 0.9% w/ 40 MEQ KCL 1,000 ML IV SCH (12:59)
[2023-05-17] MEDS: Mirtazapine 15 MG Soltab PO SCH (22:38)
[2023-05-18] MEDS: Cefepime 2 GM in Sodium Chloride 0.9% 100 ML IVPB SCH ×2 (08:21→20:47)
[2023-05-18] MEDS: Pantoprazole 40 MG VIAL IVP SCH ×2 (08:21→20:46)
[2023-05-18] MEDS: Tamsulosin HCl 0.4 MG CAP PO SCH (08:29)
[2023-05-18] MEDS: Thiamine 100 MG TAB PO SCH (08:29)
[2023-05-18] MEDS: Spironolactone 25 MG TAB PO SCH (08:29)
[2023-05-18] MEDS: Zinc Sulfate 220 MG CAP PO SCH (08:29)
[2023-05-18 10:32] LABS: Vancomycin, Trough 19.8 ug/mL
[2023-05-18] MEDS: Vancomycin HCl 750 MG in Sodium Chloride 0.9% 250 ML 250 ML IVPB SCH ×2 (10:48→12:00)
[2023-05-18 10:58] LABS: Anion Gap 17 mmol/L (10-20); BUN (Urea Nitrogen) 13 mg/dL (8.4-25.7); Calc. Creatinine Clearance 90 mL/min (70-130); Calcium 8.1 mg/dL (7.8-10.44); Carbon Dioxide 18 mmol/L (23-31); Chloride 102 mmol/L (98-107); Estimated GFR 95; Glucose 102 mg/dL (83-110); Magnesium 1.4 mg/dL (1.6-2.6); Phosphorus 3.1 mg/dL (2.3-4.7); Potassium 3.9 mmol/L (3.5-5.1); Sodium 133 mmol/L (136-145)
[2023-05-18] MEDS: Metoclopramide HCl 10 MG/2 ML VIAL IVP SCH ×3 (11:12→20:45)
[2023-05-18] MEDS: Dronabinol 2.5 MG CAP PO SCH ×2 (11:13→17:21)
[2023-05-18 11:16] LABS: #Monocytes 0.6 thou/uL (0.11-0.59); #Neutrophils 4.6 thou/uL (1.40-6.50); %Basophils 0.2 % (0.0-1.0); %Lymphocytes 6.6 % (21.0-51.0); %Monocytes 11.2 % (0.0-10.0); %Neutrophils 81.3 % (42.0-75.0); Hematocrit 25.8 % (42.0-52.0); Hemoglobin 8.5 g/dL (14.0-18.0); Mean Corpuscular HGB CONC 32.9 g/dL (32.0-36.0); Mean Corpuscular Hemoglobin 30.5 pg (27.0-31.0); Mean Corpuscular Volume 92.5 fl (78.0-98.0); Mean Platelet Volume 9.6 fL (7.4-10.4); Platelet Count 135 10x3/uL (130-400); RBC Distribution Width 15.4 % (11.5-14.5); Red Blood Cell (RBC) Count 2.79 mill/uL (4.70-6.10); White Blood Cell (WBC) Count 5.6 10x3/uL (4.8-10.8)
[2023-05-18] MEDS ORDERED: Magnesium Sulfate In Water 4 GM in Premix Bag 1 BAG IVPB SCH ×2 (12:00→12:30)
[2023-05-18] MEDS ORDERED: Magnesium Sulfate 4 GM in Sodium Chloride 0.9% 250 ML 250 ML IVPB SCH (12:30)
[2023-05-18] MEDS ORDERED: Sterile Water 10 ML VIAL IVP SCH (17:15)
[2023-05-18] MEDS ORDERED: Activase 2 MG VIAL CATH SCH (17:15)
[2023-05-18] MEDS: D5W-AA 4.25% with LYTES 1,000 ML IV SCH (17:19)
[2023-05-18] MEDS: Mirtazapine 15 MG Soltab PO SCH (21:05)
[2023-05-19] MEDS: Vancomycin HCl 750 MG in Sodium Chloride 0.9% 250 ML 250 ML IVPB SCH ×2 (00:41→12:24)
[2023-05-19] MEDS: D5W-AA 4.25% with LYTES 1,000 ML IV SCH ×2 (06:46→18:16)
[2023-05-19 06:55] LABS: Calc. Creatinine Clearance 87 mL/min (70-130); Estimated GFR 94; Magnesium 1.9 mg/dL (1.6-2.6)
[2023-05-19] MEDS ORDERED: Magnesium 2 GM/50 ML(in water) 2 GM in Premix Bag 1 BAG IVPB SCH (08:00)
[2023-05-19] MEDS: Metoclopramide HCl 10 MG/2 ML VIAL IVP SCH ×4 (08:33→20:36)
[2023-05-19] MEDS: Cefepime 2 GM in Sodium Chloride 0.9% 100 ML IVPB SCH ×2 (08:33→20:36)
[2023-05-19] MEDS: Pantoprazole 40 MG VIAL IVP SCH ×2 (08:33→20:35)
[2023-05-19] MEDS: Zinc Sulfate 220 MG CAP PO SCH (08:34)
[2023-05-19] MEDS: Spironolactone 25 MG TAB PO SCH ×2 (08:34→08:53)
[2023-05-19] MEDS: Thiamine 100 MG TAB PO SCH (08:34)
[2023-05-19] MEDS: Tamsulosin HCl 0.4 MG CAP PO SCH ×2 (08:34→08:53)
[2023-05-19] MEDS: Dronabinol 2.5 MG CAP PO SCH ×2 (08:34→16:18)
[2023-05-19] MEDS ORDERED: Ipratropium/Albuterol 3 ML NEB NEB PRN (09:55)
[2023-05-19] MEDS: Mirtazapine 15 MG Soltab PO SCH (20:59)
[2023-05-19 23:44] LABS: Vancomycin, Trough 18.4 ug/mL
[2023-05-20] MEDS: Vancomycin HCl 750 MG in Sodium Chloride 0.9% 250 ML 250 ML IVPB SCH ×3 (00:16→23:37)
[2023-05-20] MEDS: Dronabinol 2.5 MG CAP PO SCH ×2 (08:59→15:52)
[2023-05-20] MEDS: Spironolactone 25 MG TAB PO SCH (09:09)
[2023-05-20] MEDS: Thiamine 100 MG TAB PO SCH (09:09)
[2023-05-20] MEDS: Tamsulosin HCl 0.4 MG CAP PO SCH (09:09)
[2023-05-20] MEDS: Zinc Sulfate 220 MG CAP PO SCH (09:09)
[2023-05-20] MEDS: Metoclopramide HCl 10 MG/2 ML VIAL IVP SCH ×4 (09:14→19:43)
[2023-05-20] MEDS: D5W-AA 4.25% with LYTES 1,000 ML IV SCH ×2 (09:14→21:16)
[2023-05-20] MEDS: Pantoprazole 40 MG VIAL IVP SCH ×2 (09:14→19:44)
[2023-05-20] MEDS: Cefepime 2 GM in Sodium Chloride 0.9% 100 ML IVPB SCH ×2 (09:15→19:43)
[2023-05-20] MEDS: Mirtazapine 15 MG Soltab PO SCH (19:48)
[2023-05-21 06:28] LABS: #Monocytes 0.9 thou/uL (0.11-0.59); #Neutrophils 5.2 thou/uL (1.40-6.50); %Basophils 0.1 % (0.0-1.0); %Lymphocytes 9.5 % (21.0-51.0); %Monocytes 13.3 % (0.0-10.0); %Neutrophils 76.2 % (42.0-75.0); Hematocrit 25.6 % (42.0-52.0); Hemoglobin 8.4 g/dL (14.0-18.0); Mean Corpuscular HGB CONC 32.8 g/dL (32.0-36.0); Mean Corpuscular Hemoglobin 30.2 pg (27.0-31.0); Mean Corpuscular Volume 92.1 fl (78.0-98.0); Mean Platelet Volume 10.6 fL (7.4-10.4); Platelet Count 121 10x3/uL (130-400); RBC Distribution Width 14.8 % (11.5-14.5); Red Blood Cell (RBC) Count 2.78 mill/uL (4.70-6.10); White Blood Cell (WBC) Count 6.9 10x3/uL (4.8-10.8)
[2023-05-21 06:52] LABS: Anion Gap 10 mmol/L (10-20); BUN (Urea Nitrogen) 22 mg/dL (8.4-25.7); Calc. Creatinine Clearance 89 mL/min (70-130); Calcium 7.8 mg/dL (7.8-10.44); Carbon Dioxide 28 mmol/L (23-31); Chloride 98 mmol/L (98-107); Estimated GFR 95; Glucose 187 mg/dL (83-110); Magnesium 1.7 mg/dL (1.6-2.6); Phosphorus 2.4 mg/dL (2.3-4.7); Potassium 3.3 mmol/L (3.5-5.1); Sodium 133 mmol/L (136-145)
[2023-05-21] MEDS: Pantoprazole 40 MG VIAL IVP SCH ×2 (07:52→21:42)
[2023-05-21] MEDS: Metoclopramide HCl 10 MG/2 ML VIAL IVP SCH ×4 (07:52→21:41)
[2023-05-21] MEDS: Cefepime 2 GM in Sodium Chloride 0.9% 100 ML IVPB SCH ×2 (07:52→21:39)
[2023-05-21] MEDS: Spironolactone 25 MG TAB PO SCH (07:53)
[2023-05-21] MEDS: Zinc Sulfate 220 MG CAP PO SCH (07:53)
[2023-05-21] MEDS: Tamsulosin HCl 0.4 MG CAP PO SCH (07:53)
[2023-05-21] MEDS: Thiamine 100 MG TAB PO SCH (07:53)
[2023-05-21] MEDS: Dronabinol 2.5 MG CAP PO SCH ×2 (07:53→18:03)
[2023-05-21] MEDS ORDERED: Potassium Chloride 20 MEQ TAB PO SCH (08:00)
[2023-05-21] MEDS ORDERED: Magnesium 2 GM/50 ML(in water) 2 GM in Premix Bag 1 BAG IVPB SCH (08:00)
[2023-05-21] MEDS: Thiamine HCl 200 MG/2 ML VIAL SLOW IVP SCH (11:21)
[2023-05-21] MEDS: D5W-AA 4.25% with LYTES 1,000 ML IV SCH (11:21)
[2023-05-21] MEDS: Vancomycin HCl 750 MG in Sodium Chloride 0.9% 250 ML 250 ML IVPB SCH (13:37)
[2023-05-21] MEDS: Multivitamins, Adult 10 ML, TRACE ELEMENT CONCENTRATE 1 ML in D15W-AA 5% with Lytes 2,0... IV SCH (14:56)
[2023-05-21] MEDS: Potassium Chloride 20 MEQ in Premix Bag 1 BAG IVPB SCH ×3 (17:17→21:38)
[2023-05-21] MEDS ORDERED: Sodium Chloride 0.9% 1,000 ML IV SCH (18:00)
[2023-05-21] MEDS: Mirtazapine 15 MG Soltab PO SCH (21:42)
[2023-05-22] MEDS: Vancomycin HCl 750 MG in Sodium Chloride 0.9% 250 ML 250 ML IVPB SCH ×2 (00:55→11:35)
[2023-05-22 05:53] LABS: Anion Gap 11 mmol/L (10-20); BUN (Urea Nitrogen) 24 mg/dL (8.4-25.7); Calc. Creatinine Clearance 89 mL/min (70-130); Calcium 7.4 mg/dL (7.8-10.44); Carbon Dioxide 27 mmol/L (23-31); Chloride 100 mmol/L (98-107); Estimated GFR 95; Glucose 290 mg/dL (83-110); Magnesium 1.8 mg/dL (1.6-2.6); Phosphorus 1.8 mg/dL (2.3-4.7); Potassium 3.6 mmol/L (3.5-5.1); Sodium 134 mmol/L (136-145)
[2023-05-22] MEDS ORDERED: PHOS-NAK 1 PKT PACK PO SCH (06:30)
[2023-05-22] MEDS ORDERED: Electrolyte Replacement Protocol FS PRN (06:30)
[2023-05-22] MEDS ORDERED: Magnesium 2 GM/50 ML(in water) 2 GM in Premix Bag 1 BAG IVPB SCH (06:30)
[2023-05-22 06:44] LABS: #Monocytes 0.5 thou/uL (0.11-0.59); #Neutrophils 5.7 thou/uL (1.40-6.50); %Lymphocytes 7.5 % (21.0-51.0); %Monocytes 7.8 % (0.0-10.0); Hematocrit 26.4 % (42.0-52.0); Hemoglobin 8.6 g/dL (14.0-18.0); Mean Corpuscular HGB CONC 32.6 g/dL (32.0-36.0); Mean Corpuscular Hemoglobin 29.6 pg (27.0-31.0); Mean Corpuscular Volume 90.7 fl (78.0-98.0); Mean Platelet Volume 10.3 fL (7.4-10.4); Platelet Count 128 10x3/uL (130-400); RBC Distribution Width 14.8 % (11.5-14.5); Red Blood Cell (RBC) Count 2.91 mill/uL (4.70-6.10); White Blood Cell (WBC) Count 6.8 10x3/uL (4.8-10.8)
[2023-05-22] MEDS ORDERED: Potassium Phosphate 30 MMOL in Sodium Chloride 0.9% 250 ML 250 ML IVPB SCH (07:45)
[2023-05-22] MEDS ORDERED: Potassium Phosphate 15 MMOL in Sodium Chloride 0.9% 100 ML IVPB SCH (08:00)
[2023-05-22] MEDS: Spironolactone 25 MG TAB PO SCH (08:12)
[2023-05-22] MEDS: Dronabinol 2.5 MG CAP PO SCH ×2 (08:12→15:58)
[2023-05-22] MEDS: Tamsulosin HCl 0.4 MG CAP PO SCH (08:13)
[2023-05-22] MEDS: Zinc Sulfate 220 MG CAP PO SCH (08:13)
[2023-05-22] MEDS: Metoclopramide HCl 10 MG/2 ML VIAL IVP SCH ×4 (08:45→22:27)
[2023-05-22] MEDS: Cefepime 2 GM in Sodium Chloride 0.9% 100 ML IVPB SCH ×2 (08:45→22:27)
[2023-05-22] MEDS: Pantoprazole 40 MG VIAL IVP SCH ×2 (08:45→22:27)
[2023-05-22] MEDS: Thiamine HCl 200 MG/2 ML VIAL SLOW IVP SCH (08:45)
[2023-05-22] MEDS: Multivitamins, Adult 10 ML, TRACE ELEMENT CONCENTRATE 1 ML in D15W-AA 5% with Lytes 2,0... IV SCH (14:56)
[2023-05-22] MEDS: Sodium Chloride 0.9% 1,000 ML IV SCH (14:59)
[2023-05-22] MEDS: Mirtazapine 15 MG Soltab PO SCH (22:27)
[2023-05-23] MEDS: Vancomycin HCl 750 MG in Sodium Chloride 0.9% 250 ML 250 ML IVPB SCH ×2 (01:36→11:40)
[2023-05-23 05:58] LABS: Anion Gap 13 mmol/L (10-20); BUN (Urea Nitrogen) 29 mg/dL (8.4-25.7); Calc. Creatinine Clearance 78 mL/min (70-130); Calcium 7.4 mg/dL (7.8-10.44); Carbon Dioxide 24 mmol/L (23-31); Chloride 104 mmol/L (98-107); Estimated GFR 91; Glucose 381 mg/dL (83-110); Phosphorus 2.6 mg/dL (2.3-4.7); Potassium 3.2 mmol/L (3.5-5.1); Sodium 138 mmol/L (136-145)
[2023-05-23] MEDS ORDERED: Potassium Chloride 20 MEQ TAB PO SCH (08:00)
[2023-05-23] MEDS ORDERED: Magnesium 2 GM/50 ML(in water) 2 GM in Premix Bag 1 BAG IVPB SCH (08:00)
[2023-05-23] MEDS ORDERED: Dextrose 50% Abboject 50 ML SYRINGE SLOW IVP PRN (08:02)
[2023-05-23] MEDS ORDERED: Dextrose 5% in Water 1,000 ML IV PRN (08:02)
[2023-05-23] MEDS ORDERED: Glucagon 1 MG/ML KIT IM PRN (08:02)
[2023-05-23] MEDS ORDERED: HumaLOG 300 UNITS/3 ML VIAL SC PRN (08:02)
[2023-05-23] MEDS: Thiamine HCl 200 MG/2 ML VIAL SLOW IVP SCH (08:36)
[2023-05-23] MEDS: Cefepime 2 GM in Sodium Chloride 0.9% 100 ML IVPB SCH ×2 (08:36→21:18)
[2023-05-23] MEDS: Metoclopramide HCl 10 MG/2 ML VIAL IVP SCH ×4 (08:37→21:17)
[2023-05-23] MEDS: Pantoprazole 40 MG VIAL IVP SCH ×2 (08:37→21:17)
[2023-05-23] MEDS: Dronabinol 2.5 MG CAP PO SCH ×2 (08:37→15:30)
[2023-05-23] MEDS: Zinc Sulfate 220 MG CAP PO SCH (08:38)
[2023-05-23] MEDS: Spironolactone 25 MG TAB PO SCH (08:38)
[2023-05-23] MEDS: Tamsulosin HCl 0.4 MG CAP PO SCH (08:38)
[2023-05-23] MEDS: Sodium Chloride 0.9% 1,000 ML IV SCH (10:02)
[2023-05-23] MEDS: Potassium Chloride 20 MEQ in Premix Bag 1 BAG IVPB SCH ×5 (11:30→16:53)
[2023-05-23] MEDS: Multivitamins, Adult 10 ML, TRACE ELEMENT CONCENTRATE 1 ML, Fat Emulsion 500 ML in D15W... IV SCH (14:42)
[2023-05-23] MEDS: Mirtazapine 15 MG Soltab PO SCH (21:18)
[2023-05-24] MEDS: Vancomycin HCl 750 MG in Sodium Chloride 0.9% 250 ML 250 ML IVPB SCH ×2 (00:29→11:48)
[2023-05-24] MEDS: Sodium Chloride 0.9% 1,000 ML IV SCH (05:46)
[2023-05-24] MEDS: HumaLOG 300 UNITS/3 ML VIAL SC PRN ×3 (05:47→17:38)
[2023-05-24] MEDS: Spironolactone 25 MG TAB PO SCH (08:52)
[2023-05-24] MEDS: Dronabinol 2.5 MG CAP PO SCH ×2 (08:52→16:14)
[2023-05-24] MEDS: Metoclopramide HCl 10 MG/2 ML VIAL IVP SCH ×5 (08:52→21:05)
[2023-05-24] MEDS: Tamsulosin HCl 0.4 MG CAP PO SCH (08:53)
[2023-05-24] MEDS: Zinc Sulfate 220 MG CAP PO SCH (08:53)
[2023-05-24] MEDS: Thiamine HCl 200 MG/2 ML VIAL SLOW IVP SCH (08:54)
[2023-05-24] MEDS: Cefepime 2 GM in Sodium Chloride 0.9% 100 ML IVPB SCH ×2 (08:55→21:05)
[2023-05-24] MEDS: Pantoprazole 40 MG VIAL IVP SCH ×2 (08:55→21:08)
[2023-05-24] MEDS: Multivitamins, Adult 10 ML, TRACE ELEMENT CONCENTRATE 1 ML in D15W-AA 5% with Lytes 2,0... IV SCH (14:27)
[2023-05-24] MEDS: Mirtazapine 15 MG Soltab PO SCH (21:08)
[2023-05-25] MEDS: Vancomycin HCl 750 MG in Sodium Chloride 0.9% 250 ML 250 ML IVPB SCH ×2 (00:02→11:53)
[2023-05-25] MEDS: HumaLOG 300 UNITS/3 ML VIAL SC PRN ×3 (00:09→11:52)
[2023-05-25] MEDS: Sodium Chloride 0.9% 1,000 ML IV SCH ×2 (03:28→08:36)
[2023-05-25] MEDS: Dronabinol 2.5 MG CAP PO SCH ×2 (08:28→16:08)
[2023-05-25] MEDS: Thiamine HCl 200 MG/2 ML VIAL SLOW IVP SCH (08:29)
[2023-05-25] MEDS: Cefepime 2 GM in Sodium Chloride 0.9% 100 ML IVPB SCH ×2 (08:33→20:11)
[2023-05-25] MEDS: Pantoprazole 40 MG VIAL IVP SCH ×2 (08:33→20:12)
[2023-05-25] MEDS: Metoclopramide HCl 10 MG/2 ML VIAL IVP SCH ×4 (08:34→20:11)
[2023-05-25] MEDS: Tamsulosin HCl 0.4 MG CAP PO SCH (08:35)
[2023-05-25] MEDS: Zinc Sulfate 220 MG CAP PO SCH (08:35)
[2023-05-25] MEDS: Spironolactone 25 MG TAB PO SCH (08:35)
[2023-05-25] MEDS: Multivitamins, Adult 10 ML, TRACE ELEMENT CONCENTRATE 1 ML, Fat Emulsion 500 ML in D15W... IV SCH (14:42)
[2023-05-25] MEDS ORDERED: Insulin Regular 300 UNITS/3 ML VIAL IVP SCH (15:30)
[2023-05-25] MEDS: Mirtazapine 15 MG Soltab PO SCH (20:12)
[2023-05-26] MEDS: Vancomycin HCl 750 MG in Sodium Chloride 0.9% 250 ML 250 ML IVPB SCH ×2 (00:02→12:39)
[2023-05-26] MEDS: HumaLOG 300 UNITS/3 ML VIAL SC PRN ×3 (00:14→12:39)
[2023-05-26] MEDS: Dronabinol 2.5 MG CAP PO SCH ×2 (08:15→16:41)
[2023-05-26] MEDS: Metoclopramide HCl 10 MG/2 ML VIAL IVP SCH ×4 (08:15→20:37)
[2023-05-26] MEDS: Thiamine HCl 200 MG/2 ML VIAL SLOW IVP SCH (08:15)
[2023-05-26] MEDS: Pantoprazole 40 MG VIAL IVP SCH ×2 (08:16→20:37)
[2023-05-26] MEDS: Cefepime 2 GM in Sodium Chloride 0.9% 100 ML IVPB SCH ×2 (08:16→20:35)
[2023-05-26] MEDS: Zinc Sulfate 220 MG CAP PO SCH (08:17)
[2023-05-26] MEDS: Tamsulosin HCl 0.4 MG CAP PO SCH (08:17)
[2023-05-26] MEDS: Spironolactone 25 MG TAB PO SCH (08:17)
[2023-05-26] MEDS: Insulin Glargine 30 UNITS/0.3 ML VIAL SC SCH (09:31)
[2023-05-26] MEDS: Multivitamins, Adult 10 ML, TRACE ELEMENT CONCENTRATE 1 ML in D15W-AA 5% with Lytes 2,0... IV SCH (14:05)
[2023-05-26] MEDS ORDERED: Insulin Regular 300 UNITS/3 ML VIAL IVP SCH (15:30)
[2023-05-26] MEDS: Mirtazapine 15 MG Soltab PO SCH (20:29)
[2023-05-27 00:05] LABS: Vancomycin, Trough 30.5 ug/mL
[2023-05-27] MEDS: Vancomycin HCl 750 MG in Sodium Chloride 0.9% 250 ML 250 ML IVPB SCH (00:55)
[2023-05-27] MEDS: HumaLOG 300 UNITS/3 ML VIAL SC PRN ×5 (00:56→20:39)
[2023-05-27] MEDS: Insulin Glargine 30 UNITS/0.3 ML VIAL SC SCH ×3 (00:56→20:37)
[2023-05-27 06:17] LABS: Anion Gap 11 mmol/L (10-20); BUN (Urea Nitrogen) 71 mg/dL (8.4-25.7); Calc. Creatinine Clearance 37 mL/min (70-130); Calcium 7.7 mg/dL (7.8-10.44); Carbon Dioxide 24 mmol/L (23-31); Chloride 110 mmol/L (98-107); Estimated GFR 37; Potassium 3.7 mmol/L (3.5-5.1); Sodium 141 mmol/L (136-145)
[2023-05-27 06:24] LABS: Glucose 430 mg/dL (83-110)
[2023-05-27] MEDS: Dronabinol 2.5 MG CAP PO SCH ×2 (08:38→17:35)
[2023-05-27] MEDS: Cefepime 2 GM in Sodium Chloride 0.9% 100 ML IVPB SCH ×2 (08:38→20:37)
[2023-05-27] MEDS: Metoclopramide HCl 10 MG/2 ML VIAL IVP SCH ×4 (08:40→20:40)
[2023-05-27] MEDS: Zinc Sulfate 220 MG CAP PO SCH (08:40)
[2023-05-27] MEDS: Thiamine HCl 200 MG/2 ML VIAL SLOW IVP SCH (08:40)
[2023-05-27] MEDS: Spironolactone 25 MG TAB PO SCH (08:40)
[2023-05-27] MEDS: Tamsulosin HCl 0.4 MG CAP PO SCH (08:40)
[2023-05-27] MEDS: Pantoprazole 40 MG VIAL IVP SCH ×2 (09:28→20:41)
[2023-05-27 10:23] LABS: Bilirubin Negative (Negative); Blood, Urine 3+ (Negative); Clarity Turbid (Clear); Glucose, Urine (Dipstick) >=1000 mg/dL (Negative); Ketone, Urine Trace mg/dL (Negative); Leukocyte 500 Leu/uL (Negative); Nitrite Negative (Negative); Protein, Urine (Dipstick) 100 mg/dL (Neg-Trace); RBC/HPF Greater than 50 HPF (0-3); Specific Gravity, Urine 1.012 (1.002-1.036); Squamous Epithelial None Seen HPF (0-3); Urobilinogen Normal mg/dL (Less than 2); WBC/HPF Greater than 50 HPF (0-3); Yeast-Budding 3+ HPF (None Seen)
[2023-05-27 10:28] LABS: Bacteria/HPF 1+ HPF (None Seen)
[2023-05-27] MEDS ORDERED: Vancomycin HCl 750 MG in Sodium Chloride 0.9% 250 ML 250 ML IVPB SCH (13:00)
[2023-05-27] MEDS: Fluconazole In NaCl,Iso-Osm 200 MG in Premix Bag 1 BAG IVPB SCH (13:22)
[2023-05-27] MEDS: Multivitamins, Adult 10 ML, TRACE ELEMENT CONCENTRATE 1 ML, Fat Emulsion 500 ML in D15W... IV SCH (14:31)
[2023-05-27 16:10] LABS: Vancomycin, Random 22.6 ug/mL (See Comment)
[2023-05-27] MEDS ORDERED: Vancomycin Dose by Levels Sliding Scale (Wt 71-99) FS SCH (18:30)
[2023-05-27] MEDS: Mirtazapine 15 MG Soltab PO SCH (20:41)
[2023-05-28] MEDS: HumaLOG 300 UNITS/3 ML VIAL SC PRN ×3 (01:47→12:34)
[2023-05-28] MEDS: Pantoprazole 40 MG VIAL IVP SCH ×2 (08:21→20:35)
[2023-05-28] MEDS: Cefepime 2 GM in Sodium Chloride 0.9% 100 ML IVPB SCH ×2 (08:22→20:35)
[2023-05-28] MEDS: Metoclopramide HCl 10 MG/2 ML VIAL IVP SCH ×4 (08:22→20:35)
[2023-05-28] MEDS: Insulin Glargine 30 UNITS/0.3 ML VIAL SC SCH ×2 (08:22→20:42)
[2023-05-28] MEDS: Thiamine HCl 200 MG/2 ML VIAL SLOW IVP SCH (08:22)
[2023-05-28] MEDS: Spironolactone 25 MG TAB PO SCH (08:23)
[2023-05-28] MEDS: Dronabinol 2.5 MG CAP PO SCH ×2 (08:23→17:26)
[2023-05-28] MEDS: Tamsulosin HCl 0.4 MG CAP PO SCH (08:23)
[2023-05-28] MEDS: Zinc Sulfate 220 MG CAP PO SCH (08:23)
[2023-05-28] MEDS: Fluconazole In NaCl,Iso-Osm 200 MG in Premix Bag 1 BAG IVPB SCH (12:33)
[2023-05-28] MEDS: [UNRECOGNIZED DRUG - OTHER] IV SCH (14:35)
[2023-05-28] MEDS: TRACE ELEMENT IV SCH (14:35)
[2023-05-28] MEDS: MULTIVITAMINS IV SCH (14:35)
[2023-05-28] MEDS ORDERED: Vancomycin HCl 500 MG in Sodium Chloride 0.9% 100 ML IV SCH (18:15)
[2023-05-28] MEDS: Mirtazapine 15 MG Soltab PO SCH (20:35)
[2023-05-29] MEDS: Spironolactone 25 MG TAB PO SCH (07:35)
[2023-05-29] MEDS: Dronabinol 2.5 MG CAP PO SCH ×2 (07:35→14:48)
[2023-05-29] MEDS: Tamsulosin HCl 0.4 MG CAP PO SCH (07:36)
[2023-05-29] MEDS: Zinc Sulfate 220 MG CAP PO SCH (07:36)
[2023-05-29] MEDS: Insulin Glargine 30 UNITS/0.3 ML VIAL SC SCH ×2 (08:33→22:00)
[2023-05-29] MEDS: Cefepime 2 GM in Sodium Chloride 0.9% 100 ML IVPB SCH (08:33)
[2023-05-29] MEDS: Thiamine HCl 200 MG/2 ML VIAL SLOW IVP SCH (08:33)
[2023-05-29] MEDS: Pantoprazole 40 MG VIAL IVP SCH ×2 (08:33→20:03)
[2023-05-29] MEDS: Metoclopramide HCl 10 MG/2 ML VIAL IVP SCH ×4 (08:36→20:02)
[2023-05-29] MEDS ORDERED: Fluconazole 100 MG TAB PO SCH (12:00)
[2023-05-29] MEDS: Fluconazole In NaCl,Iso-Osm 200 MG in Premix Bag 1 BAG IVPB SCH (12:40)
[2023-05-29] MEDS: HumaLOG 300 UNITS/3 ML VIAL SC PRN (12:42)
[2023-05-29] MEDS: MULTIVITAMINS IV SCH (14:23)
[2023-05-29] MEDS: TRACE ELEMENT IV SCH (14:23)
[2023-05-29] MEDS: [UNRECOGNIZED DRUG - OTHER] IV SCH (14:23)
[2023-05-29] MEDS: Cefepime 1 GM in Sodium Chloride 0.9% 100 ML IVPB SCH (20:02)
[2023-05-29] MEDS: Mirtazapine 15 MG Soltab PO SCH (20:03)
[2023-05-29 20:16] LABS: Vancomycin, Random 21.4 ug/mL (See Comment)
[2023-05-29 20:20] LABS: Anion Gap 14 mmol/L (10-20); BUN (Urea Nitrogen) 97 mg/dL (8.4-25.7); Calc. Creatinine Clearance 28 mL/min (70-130); Calcium 7.8 mg/dL (7.8-10.44); Carbon Dioxide 20 mmol/L (23-31); Chloride 112 mmol/L (98-107); Estimated GFR 27; Glucose 222 mg/dL (83-110); Magnesium 2.2 mg/dL (1.6-2.6); Phosphorus 4.2 mg/dL (2.3-4.7); Potassium 3.9 mmol/L (3.5-5.1); Sodium 142 mmol/L (136-145)
[2023-05-30 06:26] LABS: Anion Gap 14 mmol/L (10-20); BUN (Urea Nitrogen) 99 mg/dL (8.4-25.7); Calc. Creatinine Clearance 26 mL/min (70-130); Calcium 7.7 mg/dL (7.8-10.44); Carbon Dioxide 20 mmol/L (23-31); Chloride 112 mmol/L (98-107); Estimated GFR 25; Glucose 269 mg/dL (83-110); Magnesium 2.2 mg/dL (1.6-2.6); Phosphorus 4.2 mg/dL (2.3-4.7); Potassium 3.9 mmol/L (3.5-5.1); Sodium 142 mmol/L (136-145)
[2023-05-30] MEDS: Thiamine HCl 200 MG/2 ML VIAL SLOW IVP SCH (09:12)
[2023-05-30] MEDS: Sodium Chloride 0.9% 1,000 ML IV SCH ×3 (09:15→18:16)
[2023-05-30] MEDS: Pantoprazole 40 MG VIAL IVP SCH ×2 (09:22→20:24)
[2023-05-30] MEDS: Metoclopramide HCl 10 MG/2 ML VIAL IVP SCH ×4 (09:31→20:24)
[2023-05-30] MEDS: Insulin Glargine 30 UNITS/0.3 ML VIAL SC SCH ×2 (09:35→20:24)
[2023-05-30] MEDS: Cefepime 1 GM in Sodium Chloride 0.9% 100 ML IVPB SCH (09:35)
[2023-05-30] MEDS: Dronabinol 2.5 MG CAP PO SCH ×2 (09:42→18:04)
[2023-05-30] MEDS: Tamsulosin HCl 0.4 MG CAP PO SCH (09:43)
[2023-05-30] MEDS: Zinc Sulfate 220 MG CAP PO SCH (09:43)
[2023-05-30] MEDS: Spironolactone 25 MG TAB PO SCH (09:43)
[2023-05-30] MEDS: Fluconazole In NaCl,Iso-Osm 200 MG in Premix Bag 1 BAG IVPB SCH (11:57)
[2023-05-30] MEDS ORDERED: Fluconazole In NaCl,Iso-Osm 100 MG, Admixture Fee 1 EACH in Premix Bag 1 BAG IVPB SCH (13:00)
[2023-05-30] MEDS ORDERED: MULTIVITAMINS IV SCH ×3 (14:00→15:00)
[2023-05-30] MEDS ORDERED: FAT EMULSION IV SCH ×3 (14:00→15:00)
[2023-05-30] MEDS ORDERED: [UNRECOGNIZED DRUG - OTHER] IV SCH ×3 (14:00→15:00)
[2023-05-30] MEDS ORDERED: TRACE ELEMENT IV SCH ×3 (14:00→15:00)
[2023-05-30] MEDS: HumaLOG 300 UNITS/3 ML VIAL SC PRN ×2 (14:32→18:16)
[2023-05-30 18:34] LABS: Vancomycin, Random 18.3 ug/mL (See Comment)
[2023-05-30] MEDS ORDERED: Vancomycin HCl 500 MG in Sodium Chloride 0.9% 100 ML IV SCH (20:00)
[2023-05-30] MEDS: Mirtazapine 15 MG Soltab PO SCH (20:24)
[2023-05-31] MEDS: Sodium Chloride 0.9% 1,000 ML IV SCH ×2 (04:12→14:14)
[2023-05-31] MEDS: Dronabinol 2.5 MG CAP PO SCH ×2 (08:49→16:25)
[2023-05-31] MEDS: Zinc Sulfate 220 MG CAP PO SCH (08:50)
[2023-05-31] MEDS: Tamsulosin HCl 0.4 MG CAP PO SCH (08:50)
[2023-05-31] MEDS: Cefepime 1 GM in Sodium Chloride 0.9% 100 ML IVPB SCH (08:50)
[2023-05-31] MEDS: Spironolactone 25 MG TAB PO SCH (08:50)
[2023-05-31] MEDS: Pantoprazole 40 MG VIAL IVP SCH ×2 (08:51→20:48)
[2023-05-31] MEDS: Insulin Glargine 30 UNITS/0.3 ML VIAL SC SCH ×3 (08:51→20:47)
[2023-05-31] MEDS: Metoclopramide HCl 10 MG/2 ML VIAL IVP SCH ×5 (08:51→20:47)
[2023-05-31] MEDS: Thiamine HCl 200 MG/2 ML VIAL SLOW IVP SCH (08:51)
[2023-05-31 09:36] LABS: Hematocrit 24.3 % (42.0-52.0); Hemoglobin 7.8 g/dL (14.0-18.0); Mean Corpuscular HGB CONC 32.1 g/dL (32.0-36.0); Mean Corpuscular Hemoglobin 30.5 pg (27.0-31.0); Mean Corpuscular Volume 94.9 fl (78.0-98.0); Mean Platelet Volume 12.1 fL (7.4-10.4); RBC Distribution Width 16.6 % (11.5-14.5); Red Blood Cell (RBC) Count 2.56 mill/uL (4.70-6.10); White Blood Cell (WBC) Count 5.2 10x3/uL (4.8-10.8)
[2023-05-31 09:38] LABS: Platelet Count 69 10x3/uL (130-400)
[2023-05-31 09:57] LABS: Anion Gap 12 mmol/L (10-20); BUN (Urea Nitrogen) 99 mg/dL (8.4-25.7); Calc. Creatinine Clearance 27 mL/min (70-130); Calcium 7.4 mg/dL (7.8-10.44); Carbon Dioxide 20 mmol/L (23-31); Chloride 115 mmol/L (98-107); Estimated GFR 26; Glucose 177 mg/dL (83-110); Potassium 3.7 mmol/L (3.5-5.1); Sodium 143 mmol/L (136-145)
[2023-05-31] MEDS: Fluconazole In NaCl,Iso-Osm 100 MG, Admixture Fee 1 EACH in Premix Bag 1 BAG IVPB SCH ×2 (12:36→17:01)
[2023-05-31] MEDS ORDERED: Sodium Bicarbonate 150 MEQ in Dextrose 5% in Water 1,000 ML IV SCH (13:00)
[2023-05-31] MEDS ORDERED: Sterile Water 10 ML VIAL FS SCH (13:15)
[2023-05-31] MEDS ORDERED: Activase 2 MG VIAL CATH SCH ×2 (13:15→16:00)
[2023-05-31] MEDS ORDERED: POTASSIUM PHOSPHATE IV SCH (14:00)
[2023-05-31] MEDS ORDERED: [UNRECOGNIZED DRUG - OTHER] IV SCH ×2 (14:00)
[2023-05-31] MEDS ORDERED: POTASSIUM ACETATE IV SCH (14:00)
[2023-05-31] MEDS ORDERED: MULTIVITAMINS IV SCH ×2 (14:00)
[2023-05-31] MEDS ORDERED: SODIUM ACETATE IV SCH (14:00)
[2023-05-31] MEDS ORDERED: TRACE ELEMENT IV SCH ×2 (14:00)
[2023-05-31] MEDS ORDERED: [UNRECOGNIZED DRUG - OTHER] IV SCH (14:00)
[2023-05-31] MEDS ORDERED: Sterile Water 10 ML VIAL IVP SCH (16:00)
[2023-05-31 19:47] LABS: Creatinine, Urine 22.69 mg/dL (63-166)
[2023-05-31] MEDS: Mirtazapine 15 MG Soltab PO SCH (20:48)
[2023-05-31 21:00] LABS: Vancomycin, Random 19.9 ug/mL (See Comment)
[2023-05-31] MEDS ORDERED: Vancomycin HCl 500 MG in Sodium Chloride 0.9% 100 ML IV SCH (23:00)
[2023-05-31 23:36] LABS: Vancomycin, Random 19.6 ug/mL (See Comment)
[2023-06-01] MEDS: HumaLOG 300 UNITS/3 ML VIAL SC PRN (05:20)
[2023-06-01] MEDS ORDERED: Albumin 25% 25 GM/100 ML BOT IVPB SCH (06:30)
[2023-06-01 06:58] LABS: Anion Gap 11 mmol/L (10-20); BUN (Urea Nitrogen) 96 mg/dL (8.4-25.7); Calc. Creatinine Clearance 25 mL/min (70-130); Calcium 7.5 mg/dL (7.8-10.44); Carbon Dioxide 23 mmol/L (23-31); Chloride 110 mmol/L (98-107); Estimated GFR 24; Glucose 266 mg/dL (83-110); Potassium 3.6 mmol/L (3.5-5.1); Sodium 140 mmol/L (136-145); Triglycerides 116 mg/dL (Less than 150)
[2023-06-01] MEDS: Dronabinol 2.5 MG CAP PO SCH ×2 (08:50→16:09)
[2023-06-01] MEDS: Cefepime 1 GM in Sodium Chloride 0.9% 100 ML IVPB SCH (08:57)
[2023-06-01] MEDS: Metoclopramide HCl 10 MG/2 ML VIAL IVP SCH ×4 (08:58→20:56)
[2023-06-01] MEDS: Pantoprazole 40 MG VIAL IVP SCH ×2 (08:58→20:56)
[2023-06-01] MEDS: Thiamine HCl 200 MG/2 ML VIAL SLOW IVP SCH (08:58)
[2023-06-01] MEDS: Insulin Glargine 30 UNITS/0.3 ML VIAL SC SCH ×2 (08:58→20:56)
[2023-06-01] MEDS: Tamsulosin HCl 0.4 MG CAP PO SCH (09:03)
[2023-06-01] MEDS: Zinc Sulfate 220 MG CAP PO SCH (09:03)
[2023-06-01] MEDS: Albumin 25% 25 GM/100 ML BOT IVPB SCH ×2 (11:31→17:46)
[2023-06-01] MEDS: Fluconazole In NaCl,Iso-Osm 100 MG, Admixture Fee 1 EACH in Premix Bag 1 BAG IVPB SCH (12:52)
[2023-06-01] MEDS ORDERED: [UNRECOGNIZED DRUG - OTHER] IV SCH (14:00)
[2023-06-01] MEDS ORDERED: [UNRECOGNIZED DRUG - OTHER] IV SCH ×2 (14:00)
[2023-06-01] MEDS ORDERED: POTASSIUM PHOSPHATE IV SCH ×2 (14:00)
[2023-06-01] MEDS ORDERED: POTASSIUM ACETATE IV SCH ×2 (14:00)
[2023-06-01] MEDS ORDERED: TRACE ELEMENT IV SCH (14:00)
[2023-06-01] MEDS ORDERED: FAT EMULSION IV SCH (14:00)
[2023-06-01] MEDS ORDERED: MULTIVITAMINS IV SCH (14:00)
[2023-06-01] MEDS ORDERED: SODIUM ACETATE IV SCH ×2 (14:00)
[2023-06-01] MEDS: Mirtazapine 15 MG Soltab PO SCH (20:58)
[2023-06-02] MEDS: Albumin 25% 25 GM/100 ML BOT IVPB SCH ×2 (00:33→05:29)
[2023-06-02 07:37] LABS: #Monocytes 0.3 thou/uL (0.11-0.59); #Neutrophils 3.4 thou/uL (1.40-6.50); %Lymphocytes 14.6 % (21.0-51.0); %Monocytes 6.2 % (0.0-10.0); %Neutrophils 78.5 % (42.0-75.0); Hematocrit 20.9 % (42.0-52.0); Hemoglobin 6.8 g/dL (14.0-18.0); Mean Corpuscular HGB CONC 32.5 g/dL (32.0-36.0); Mean Corpuscular Hemoglobin 30.5 pg (27.0-31.0); Mean Corpuscular Volume 93.7 fl (78.0-98.0); Mean Platelet Volume 12.4 fL (7.4-10.4); RBC Distribution Width 16.6 % (11.5-14.5); Red Blood Cell (RBC) Count 2.23 mill/uL (4.70-6.10); White Blood Cell (WBC) Count 4.4 10x3/uL (4.8-10.8)
[2023-06-02 07:38] LABS: Platelet Count 64 10x3/uL (130-400)
[2023-06-02 08:15] LABS: Albumin 3.5 g/dL (3.4-4.8); Anion Gap 15 mmol/L (10-20); BUN (Urea Nitrogen) 93 mg/dL (8.4-25.7); BUN/Creatinine Ratio 34.57; Calc. Creatinine Clearance 26 mL/min (70-130); Calcium 7.8 mg/dL (7.8-10.44); Carbon Dioxide 22 mmol/L (23-31); Chloride 112 mmol/L (98-107); Estimated GFR 24; Glucose 107 mg/dL (83-110); Phosphorus 4.5 mg/dL (2.3-4.7); Potassium 3.5 mmol/L (3.5-5.1); Sodium 145 mmol/L (136-145)
[2023-06-02] MEDS: Zinc Sulfate 220 MG CAP PO SCH (08:25)
[2023-06-02] MEDS: Dronabinol 2.5 MG CAP PO SCH ×2 (08:25→16:29)
[2023-06-02] MEDS: Tamsulosin HCl 0.4 MG CAP PO SCH (08:25)
[2023-06-02] MEDS: Thiamine HCl 200 MG/2 ML VIAL SLOW IVP SCH (08:26)
[2023-06-02] MEDS: Pantoprazole 40 MG VIAL IVP SCH ×2 (08:26→20:43)
[2023-06-02] MEDS: Cefepime 1 GM in Sodium Chloride 0.9% 100 ML IVPB SCH (08:26)
[2023-06-02] MEDS: Insulin Glargine 30 UNITS/0.3 ML VIAL SC SCH (08:26)
[2023-06-02] MEDS: Metoclopramide HCl 10 MG/2 ML VIAL IVP SCH ×4 (08:26→20:42)
[2023-06-02] MEDS ORDERED: Sodium Bicarbonate 150 MEQ in Dextrose 5% in Water 1,000 ML IV SCH (11:00)
[2023-06-02] MEDS ORDERED: Metoprolol Tartrate 5 MG/5 ML VIAL IVP SCH (12:00)
[2023-06-02] MEDS: Fluconazole In NaCl,Iso-Osm 100 MG, Admixture Fee 1 EACH in Premix Bag 1 BAG IVPB SCH (13:55)
[2023-06-02] MEDS ORDERED: POTASSIUM ACETATE IV SCH (14:00)
[2023-06-02] MEDS ORDERED: [UNRECOGNIZED DRUG - OTHER] IV SCH (14:00)
[2023-06-02] MEDS ORDERED: POTASSIUM PHOSPHATE IV SCH (14:00)
[2023-06-02] MEDS ORDERED: SODIUM ACETATE IV SCH (14:00)
[2023-06-02] MEDS: [UNRECOGNIZED DRUG - OTHER] IV SCH (14:52)
[2023-06-02] MEDS: POTASSIUM PHOSPHATE IV SCH (14:52)
[2023-06-02] MEDS: SODIUM ACETATE IV SCH (14:52)
[2023-06-02] MEDS: POTASSIUM ACETATE IV SCH (14:52)
[2023-06-02] MEDS ORDERED: Epoetin (ESRD) 10,000 UNITS/ML VIAL IVP SCH (16:00)
[2023-06-02] MEDS: hydrALAZINE 20 MG/ML VIAL SLOW IVP SCH (18:00)
[2023-06-02 18:03] LABS: Hematocrit 25.7 % (42.0-52.0); Hemoglobin 8.3 g/dL (14.0-18.0)
[2023-06-02] MEDS: Mirtazapine 15 MG Soltab PO SCH (20:47)
[2023-06-03] MEDS: hydrALAZINE 20 MG/ML VIAL SLOW IVP SCH ×4 (00:48→17:53)
[2023-06-03 06:40] LABS: #Monocytes 0.3 thou/uL (0.11-0.59); #Neutrophils 3.6 thou/uL (1.40-6.50); %Lymphocytes 12.6 % (21.0-51.0); %Monocytes 6.6 % (0.0-10.0); %Neutrophils 79.9 % (42.0-75.0); Hematocrit 25.9 % (42.0-52.0); Hemoglobin 8.1 g/dL (14.0-18.0); Mean Corpuscular HGB CONC 31.3 g/dL (32.0-36.0); Mean Corpuscular Hemoglobin 29.3 pg (27.0-31.0); Mean Corpuscular Volume 93.8 fl (78.0-98.0); Mean Platelet Volume 11.8 fL (7.4-10.4); RBC Distribution Width 17.2 % (11.5-14.5); Red Blood Cell (RBC) Count 2.76 mill/uL (4.70-6.10); White Blood Cell (WBC) Count 4.5 10x3/uL (4.8-10.8)
[2023-06-03 06:41] LABS: Platelet Count 76 10x3/uL (130-400)
[2023-06-03 07:01] LABS: Albumin 3.2 g/dL (3.4-4.8); Anion Gap 14 mmol/L (10-20); BUN (Urea Nitrogen) 89 mg/dL (8.4-25.7); BUN/Creatinine Ratio 32.84; Calc. Creatinine Clearance 26 mL/min (70-130); Calcium 7.7 mg/dL (7.8-10.44); Carbon Dioxide 23 mmol/L (23-31); Chloride 109 mmol/L (98-107); Estimated GFR 24; Glucose 154 mg/dL (83-110); Phosphorus 4.5 mg/dL (2.3-4.7); Potassium 3.4 mmol/L (3.5-5.1); Sodium 143 mmol/L (136-145)
[2023-06-03] MEDS: Potassium Chloride 20 MEQ in Premix Bag 1 BAG IVPB SCH ×2 (08:52→10:01)
[2023-06-03] MEDS: Thiamine HCl 200 MG/2 ML VIAL SLOW IVP SCH (08:54)
[2023-06-03] MEDS: Metoclopramide HCl 10 MG/2 ML VIAL IVP SCH ×4 (08:54→21:27)
[2023-06-03] MEDS: Cefepime 1 GM in Sodium Chloride 0.9% 100 ML IVPB SCH (08:54)
[2023-06-03] MEDS: Pantoprazole 40 MG VIAL IVP SCH ×2 (08:54→21:28)
[2023-06-03] MEDS: Zinc Sulfate 220 MG CAP PO SCH (08:55)
[2023-06-03] MEDS: Dronabinol 2.5 MG CAP PO SCH ×2 (08:55→16:36)
[2023-06-03] MEDS: Tamsulosin HCl 0.4 MG CAP PO SCH (08:55)
[2023-06-03] MEDS ORDERED: Sodium Bicarbonate 150 MEQ in Dextrose 5% in Water 1,000 ML IV SCH (10:00)
[2023-06-03] MEDS: POTASSIUM PHOSPHATE IV SCH (14:29)
[2023-06-03] MEDS: POTASSIUM ACETATE IV SCH (14:29)
[2023-06-03] MEDS: SODIUM ACETATE IV SCH (14:29)
[2023-06-03] MEDS: [UNRECOGNIZED DRUG - OTHER] IV SCH (14:29)
[2023-06-03] MEDS: Fluconazole In NaCl,Iso-Osm 100 MG, Admixture Fee 1 EACH in Premix Bag 1 BAG IVPB SCH (14:31)
[2023-06-03] MEDS: Mirtazapine 15 MG Soltab PO SCH (21:28)
[2023-06-03] MEDS: Insulin Glargine 30 UNITS/0.3 ML VIAL SC SCH (21:28)
[2023-06-04] MEDS: hydrALAZINE 20 MG/ML VIAL SLOW IVP SCH ×4 (01:02→17:02)
[2023-06-04] MEDS: HumaLOG 300 UNITS/3 ML VIAL SC PRN ×3 (06:20→16:55)
[2023-06-04 06:46] LABS: Anion Gap 13 mmol/L (10-20); BUN (Urea Nitrogen) 88 mg/dL (8.4-25.7); Calc. Creatinine Clearance 24 mL/min (70-130); Calcium 7.4 mg/dL (7.8-10.44); Carbon Dioxide 25 mmol/L (23-31); Chloride 108 mmol/L (98-107); Estimated GFR 22; Glucose 274 mg/dL (83-110); Potassium 3.8 mmol/L (3.5-5.1); Sodium 142 mmol/L (136-145)
[2023-06-04] MEDS: Metoclopramide HCl 10 MG/2 ML VIAL IVP SCH ×4 (08:25→23:02)
[2023-06-04] MEDS: Cefepime 1 GM in Sodium Chloride 0.9% 100 ML IVPB SCH (09:25)
[2023-06-04] MEDS: Thiamine HCl 200 MG/2 ML VIAL SLOW IVP SCH (09:26)
[2023-06-04] MEDS: Pantoprazole 40 MG VIAL IVP SCH ×2 (09:26→23:03)
[2023-06-04] MEDS: Insulin Glargine 30 UNITS/0.3 ML VIAL SC SCH ×2 (09:27→23:08)
[2023-06-04] MEDS: Zinc Sulfate 220 MG CAP PO SCH (09:28)
[2023-06-04] MEDS: Dronabinol 2.5 MG CAP PO SCH ×2 (09:28→16:50)
[2023-06-04] MEDS: Tamsulosin HCl 0.4 MG CAP PO SCH (09:28)
[2023-06-04] MEDS: Fluconazole In NaCl,Iso-Osm 100 MG, Admixture Fee 1 EACH in Premix Bag 1 BAG IVPB SCH (13:44)
[2023-06-04] MEDS: POTASSIUM ACETATE IV SCH (14:58)
[2023-06-04] MEDS: POTASSIUM PHOSPHATE IV SCH (14:58)
[2023-06-04] MEDS: SODIUM ACETATE IV SCH (14:58)
[2023-06-04] MEDS: [UNRECOGNIZED DRUG - OTHER] IV SCH (14:58)
[2023-06-04] MEDS: Mirtazapine 15 MG Soltab PO SCH (23:02)
[2023-06-05] MEDS: hydrALAZINE 20 MG/ML VIAL SLOW IVP SCH ×5 (01:27→23:55)
[2023-06-05] MEDS: Metoclopramide HCl 10 MG/2 ML VIAL IVP SCH ×4 (08:27→20:44)
[2023-06-05] MEDS: Thiamine HCl 200 MG/2 ML VIAL SLOW IVP SCH (08:28)
[2023-06-05] MEDS: Pantoprazole 40 MG VIAL IVP SCH ×2 (08:28→20:44)
[2023-06-05] MEDS: Insulin Glargine 30 UNITS/0.3 ML VIAL SC SCH ×3 (08:28→20:59)
[2023-06-05] MEDS: Cefepime 1 GM in Sodium Chloride 0.9% 100 ML IVPB SCH (08:28)
[2023-06-05] MEDS: Dronabinol 2.5 MG CAP PO SCH ×3 (08:29→17:35)
[2023-06-05] MEDS: Zinc Sulfate 220 MG CAP PO SCH ×2 (08:29→09:07)
[2023-06-05] MEDS: Tamsulosin HCl 0.4 MG CAP PO SCH ×2 (08:29→09:07)
[2023-06-05 08:57] LABS: #Monocytes 0.3 thou/uL (0.11-0.59); %Basophils 0.2 % (0.0-1.0); %Lymphocytes 10.8 % (21.0-51.0); %Monocytes 5.6 % (0.0-10.0); %Neutrophils 82.6 % (42.0-75.0); Hematocrit 26.2 % (42.0-52.0); Hemoglobin 7.9 g/dL (14.0-18.0); Mean Corpuscular HGB CONC 30.2 g/dL (32.0-36.0); Mean Corpuscular Hemoglobin 29.8 pg (27.0-31.0); Mean Corpuscular Volume 98.9 fl (78.0-98.0); Mean Platelet Volume 11.6 fL (7.4-10.4); RBC Distribution Width 17.1 % (11.5-14.5); Red Blood Cell (RBC) Count 2.65 mill/uL (4.70-6.10); White Blood Cell (WBC) Count 4.8 10x3/uL (4.8-10.8)
[2023-06-05] MEDS ORDERED: Ergocalciferol 1.25 MG(50,000 UNITS) CAP PO SCH (09:00)
[2023-06-05 09:03] LABS: Platelet Count 89 10x3/uL (130-400)
[2023-06-05 09:44] LABS: ALT (SGPT) 20 U/L (8-55); AST (SGOT) 22 U/L (5-34); Albumin 2.9 g/dL (3.4-4.8); Alkaline Phosphatase 247 U/L (40-110); Anion Gap 17 mmol/L (10-20); BUN (Urea Nitrogen) 81 mg/dL (8.4-25.7); Bilirubin, Total 0.5 mg/dL (0.2-1.2); Calc. Creatinine Clearance 24 mL/min (70-130); Calcium 7.6 mg/dL (7.8-10.44); Carbon Dioxide 23 mmol/L (23-31); Chloride 98 mmol/L (98-107); Estimated GFR 23; Globulin 2.2 g/dL (2.4-3.5); Glucose 832 mg/dL (83-110); Potassium 5.9 mmol/L (3.5-5.1); Protein, Total 5.1 g/dL (5.8-8.1); Sodium 132 mmol/L (136-145)
[2023-06-05 10:24] LABS: #Monocytes 0.3 thou/uL (0.11-0.59); #Neutrophils 4.1 thou/uL (1.40-6.50); %Lymphocytes 9.5 % (21.0-51.0); %Monocytes 6.2 % (0.0-10.0); %Neutrophils 83.9 % (42.0-75.0); Hematocrit 25.1 % (42.0-52.0); Mean Corpuscular HGB CONC 31.9 g/dL (32.0-36.0); Mean Corpuscular Hemoglobin 30.3 pg (27.0-31.0); Mean Platelet Volume 11.6 fL (7.4-10.4); Red Blood Cell (RBC) Count 2.64 mill/uL (4.70-6.10); White Blood Cell (WBC) Count 4.8 10x3/uL (4.8-10.8)
[2023-06-05 10:36] LABS: Mean Corpuscular Volume 95.1 fl (78.0-98.0); Platelet Count 97 10x3/uL (130-400)
[2023-06-05 10:45] LABS: ALT (SGPT) 26 U/L (8-55); AST (SGOT) 38 U/L (5-34); Alkaline Phosphatase 280 U/L (40-110); Anion Gap 15 mmol/L (10-20); BUN (Urea Nitrogen) 86 mg/dL (8.4-25.7); Bilirubin, Total 0.4 mg/dL (0.2-1.2); Calc. Creatinine Clearance 26 mL/min (70-130); Calcium 7.4 mg/dL (7.8-10.44); Carbon Dioxide 23 mmol/L (23-31); Chloride 104 mmol/L (98-107); Estimated GFR 25; Globulin 2.2 g/dL (2.4-3.5); Glucose 247 mg/dL (83-110); Potassium 3.8 mmol/L (3.5-5.1); Protein, Total 5.2 g/dL (5.8-8.1); Sodium 138 mmol/L (136-145)
[2023-06-05] MEDS: Fluconazole In NaCl,Iso-Osm 100 MG, Admixture Fee 1 EACH in Premix Bag 1 BAG IVPB SCH (12:15)
[2023-06-05] MEDS: HumaLOG 300 UNITS/3 ML VIAL SC PRN (12:23)
[2023-06-05] MEDS: POTASSIUM ACETATE IV SCH (14:07)
[2023-06-05] MEDS: SODIUM ACETATE IV SCH (14:07)
[2023-06-05] MEDS: [UNRECOGNIZED DRUG - OTHER] IV SCH (14:07)
[2023-06-05] MEDS: POTASSIUM PHOSPHATE IV SCH (14:07)
[2023-06-05] MEDS: Mirtazapine 15 MG Soltab PO SCH (20:03)
[2023-06-06] MEDS: hydrALAZINE 20 MG/ML VIAL SLOW IVP SCH ×3 (04:46→18:17)
[2023-06-06 05:15] LABS: #Monocytes 0.3 thou/uL (0.11-0.59); #Neutrophils 3.7 thou/uL (1.40-6.50); %Lymphocytes 10.6 % (21.0-51.0); %Monocytes 6.8 % (0.0-10.0); %Neutrophils 81.9 % (42.0-75.0); Hematocrit 25.1 % (42.0-52.0); Hemoglobin 7.8 g/dL (14.0-18.0); Mean Corpuscular HGB CONC 31.1 g/dL (32.0-36.0); Mean Corpuscular Hemoglobin 29.4 pg (27.0-31.0); Mean Corpuscular Volume 94.7 fl (78.0-98.0); Mean Platelet Volume 11.3 fL (7.4-10.4); Platelet Count 102 10x3/uL (130-400); Red Blood Cell (RBC) Count 2.65 mill/uL (4.70-6.10); White Blood Cell (WBC) Count 4.5 10x3/uL (4.8-10.8)
[2023-06-06 05:40] LABS: ALT (SGPT) 19 U/L (8-55); AST (SGOT) 17 U/L (5-34); Albumin 2.9 g/dL (3.4-4.8); Alkaline Phosphatase 234 U/L (40-110); Anion Gap 14 mmol/L (10-20); BUN (Urea Nitrogen) 86 mg/dL (8.4-25.7); Bilirubin, Total 0.5 mg/dL (0.2-1.2); Calc. Creatinine Clearance 26 mL/min (70-130); Calcium 7.5 mg/dL (7.8-10.44); Carbon Dioxide 25 mmol/L (23-31); Chloride 104 mmol/L (98-107); Estimated GFR 25; Globulin 2.3 g/dL (2.4-3.5); Glucose 122 mg/dL (83-110); Magnesium 1.9 mg/dL (1.6-2.6); Phosphorus 4.1 mg/dL (2.3-4.7); Potassium 3.7 mmol/L (3.5-5.1); Protein, Total 5.2 g/dL (5.8-8.1); Sodium 139 mmol/L (136-145)
[2023-06-06] MEDS: Insulin Glargine 30 UNITS/0.3 ML VIAL SC SCH ×2 (09:14→20:55)
[2023-06-06] MEDS: Metoclopramide HCl 10 MG/2 ML VIAL IVP SCH ×4 (09:18→20:55)
[2023-06-06] MEDS: Dronabinol 2.5 MG CAP PO SCH ×2 (09:19→18:17)
[2023-06-06] MEDS: Tamsulosin HCl 0.4 MG CAP PO SCH (09:19)
[2023-06-06] MEDS: Zinc Sulfate 220 MG CAP PO SCH (09:19)
[2023-06-06] MEDS: Fluconazole In NaCl,Iso-Osm 100 MG, Admixture Fee 1 EACH in Premix Bag 1 BAG IVPB SCH (12:48)
[2023-06-06] MEDS: Thiamine HCl 200 MG/2 ML VIAL SLOW IVP SCH (12:51)
[2023-06-06] MEDS: Pantoprazole 40 MG VIAL IVP SCH ×2 (13:18→20:55)
[2023-06-06] MEDS: SODIUM ACETATE IV SCH (14:51)
[2023-06-06] MEDS: POTASSIUM PHOSPHATE IV SCH (14:51)
[2023-06-06] MEDS: POTASSIUM ACETATE IV SCH (14:51)
[2023-06-06] MEDS: [UNRECOGNIZED DRUG - OTHER] IV SCH (14:51)
[2023-06-06] MEDS: Mirtazapine 15 MG Soltab PO SCH (20:55)
[2023-06-07] MEDS: hydrALAZINE 20 MG/ML VIAL SLOW IVP SCH ×4 (00:38→18:24)
[2023-06-07 05:02] LABS: Anion Gap 14 mmol/L (10-20); BUN (Urea Nitrogen) 83 mg/dL (8.4-25.7); Calc. Creatinine Clearance 26 mL/min (70-130); Calcium 7.5 mg/dL (7.8-10.44); Carbon Dioxide 25 mmol/L (23-31); Chloride 103 mmol/L (98-107); Estimated GFR 25; Glucose 104 mg/dL (83-110); Phosphorus 4.3 mg/dL (2.3-4.7); Potassium 3.8 mmol/L (3.5-5.1); Sodium 138 mmol/L (136-145)
[2023-06-07] MEDS: Pantoprazole 40 MG VIAL IVP SCH ×2 (08:43→20:11)
[2023-06-07] MEDS: Thiamine HCl 200 MG/2 ML VIAL SLOW IVP SCH (08:44)
[2023-06-07] MEDS: Metoclopramide HCl 10 MG/2 ML VIAL IVP SCH ×4 (08:44→20:10)
[2023-06-07] MEDS: Zinc Sulfate 220 MG CAP PO SCH (08:45)
[2023-06-07] MEDS: Tamsulosin HCl 0.4 MG CAP PO SCH (08:45)
[2023-06-07] MEDS: Dronabinol 2.5 MG CAP PO SCH ×2 (08:45→16:19)
[2023-06-07] MEDS: Insulin Glargine 30 UNITS/0.3 ML VIAL SC SCH ×2 (09:01→20:11)
[2023-06-07] MEDS ORDERED: Sodium Chloride 0.9% 100 ML ONE (09:21)
[2023-06-07] MEDS ORDERED: CEFAZOLIN 2 GM VIAL ONE (09:21)
[2023-06-07] MEDS: Fluconazole In NaCl,Iso-Osm 100 MG, Admixture Fee 1 EACH in Premix Bag 1 BAG IVPB SCH (13:25)
[2023-06-07] MEDS: [UNRECOGNIZED DRUG - OTHER] IV SCH (15:39)
[2023-06-07] MEDS: POTASSIUM ACETATE IV SCH (15:39)
[2023-06-07] MEDS: POTASSIUM PHOSPHATE IV SCH (15:39)
[2023-06-07] MEDS: SODIUM ACETATE IV SCH (15:39)
[2023-06-07] MEDS: Mirtazapine 15 MG Soltab PO SCH (20:10)
[2023-06-08] MEDS: hydrALAZINE 20 MG/ML VIAL SLOW IVP SCH ×3 (00:06→11:28)
[2023-06-08 07:44] LABS: #Monocytes 0.4 thou/uL (0.11-0.59); %Lymphocytes 12.7 % (21.0-51.0); %Neutrophils 78.5 % (42.0-75.0); Hematocrit 24.9 % (42.0-52.0); Hemoglobin 7.8 g/dL (14.0-18.0); Mean Corpuscular HGB CONC 31.3 g/dL (32.0-36.0); Mean Corpuscular Hemoglobin 29.7 pg (27.0-31.0); Mean Corpuscular Volume 94.7 fl (78.0-98.0); Mean Platelet Volume 10.8 fL (7.4-10.4); Platelet Count 102 10x3/uL (130-400); RBC Distribution Width 16.4 % (11.5-14.5); Red Blood Cell (RBC) Count 2.63 mill/uL (4.70-6.10)
[2023-06-08 08:05] LABS: Albumin 2.8 g/dL (3.4-4.8); Anion Gap 13 mmol/L (10-20); BUN (Urea Nitrogen) 78 mg/dL (8.4-25.7); BUN/Creatinine Ratio 29.77; Calc. Creatinine Clearance 26 mL/min (70-130); Calcium 7.4 mg/dL (7.8-10.44); Carbon Dioxide 27 mmol/L (23-31); Chloride 104 mmol/L (98-107); Estimated GFR 25; Glucose 93 mg/dL (83-110); Potassium 3.7 mmol/L (3.5-5.1); Sodium 140 mmol/L (136-145)
[2023-06-08] MEDS: Pantoprazole 40 MG VIAL IVP SCH ×2 (08:24→20:36)
[2023-06-08] MEDS: Metoclopramide HCl 10 MG/2 ML VIAL IVP SCH ×4 (08:25→20:34)
[2023-06-08] MEDS: Tamsulosin HCl 0.4 MG CAP PO SCH (08:25)
[2023-06-08] MEDS: Insulin Glargine 30 UNITS/0.3 ML VIAL SC SCH ×2 (08:25→20:53)
[2023-06-08] MEDS: Thiamine HCl 200 MG/2 ML VIAL SLOW IVP SCH (08:25)
[2023-06-08] MEDS: Zinc Sulfate 220 MG CAP PO SCH (08:26)
[2023-06-08] MEDS: Dronabinol 2.5 MG CAP PO SCH ×2 (08:26→17:32)
[2023-06-08] MEDS: Fluconazole In NaCl,Iso-Osm 100 MG, Admixture Fee 1 EACH in Premix Bag 1 BAG IVPB SCH (13:12)
[2023-06-08] MEDS ORDERED: Amlodipine 5 MG TAB PER TUBE SCH (14:45)
[2023-06-08] MEDS: Albumin 25% 25 GM/100 ML BOT IVPB SCH ×2 (15:00→20:34)
[2023-06-08 16:35] LABS: Bilirubin Negative (Negative); Blood, Urine 3+ (Negative); Clarity Extra Turbid (Clear); Glucose, Urine (Dipstick) 30 mg/dL (Negative); Ketone, Urine Negative (Negative); Leukocyte 500 Leu/uL (Negative); Nitrite Negative (Negative); Protein, Urine (Dipstick) 100 mg/dL (Neg-Trace); RBC/HPF Greater than 50 HPF (0-3); Specific Gravity, Urine 1.012 (1.002-1.036); Squamous Epithelial None Seen HPF (0-3); Urobilinogen Normal mg/dL (Less than 2); WBC/HPF Greater than 50 HPF (0-3); pH, Urine 5.5 (5.0-9.0)
[2023-06-08 16:50] LABS: Bacteria/HPF 2+ HPF (None Seen); Yeast-Hyphae 1+ HPF (None Seen)
[2023-06-08 17:09] LABS: Creatinine, Urine 30.49 mg/dL (63-166)
[2023-06-08] MEDS: Mirtazapine 15 MG Soltab PO SCH (20:34)
[2023-06-08] MEDS: Calcium Carbonate 600 MG + Vit D TAB PER TUBE SCH (20:34)
[2023-06-09 05:32] LABS: Albumin 3.2 g/dL (3.4-4.8); Anion Gap 13 mmol/L (10-20); BUN (Urea Nitrogen) 77 mg/dL (8.4-25.7); BUN/Creatinine Ratio 30.32; Calc. Creatinine Clearance 27 mL/min (70-130); Calcium 7.4 mg/dL (7.8-10.44); Carbon Dioxide 26 mmol/L (23-31); Chloride 104 mmol/L (98-107); Estimated GFR 26; Glucose 118 mg/dL (83-110); Phosphorus 4.8 mg/dL (2.3-4.7); Potassium 3.9 mmol/L (3.5-5.1); Sodium 139 mmol/L (136-145)
[2023-06-09] MEDS: Tamsulosin HCl 0.4 MG CAP PO SCH (08:24)
[2023-06-09] MEDS: Amlodipine 5 MG TAB PER TUBE SCH (08:24)
[2023-06-09] MEDS: Metoclopramide HCl 10 MG/2 ML VIAL IVP SCH ×4 (08:25→23:45)
[2023-06-09] MEDS: Thiamine HCl 200 MG/2 ML VIAL SLOW IVP SCH (08:25)
[2023-06-09] MEDS: Calcium Carbonate 600 MG + Vit D TAB PER TUBE SCH ×2 (08:25→23:55)
[2023-06-09] MEDS: Insulin Glargine 30 UNITS/0.3 ML VIAL SC SCH ×3 (08:25→23:45)
[2023-06-09] MEDS: Pantoprazole 40 MG VIAL IVP SCH ×2 (08:26→23:45)
[2023-06-09] MEDS: Dronabinol 2.5 MG CAP PO SCH ×2 (09:18→18:21)
[2023-06-09] MEDS: Zinc Sulfate 220 MG CAP PO SCH (09:18)
[2023-06-09] MEDS: Mirtazapine 15 MG Soltab PO SCH (23:37)
[2023-06-10 06:08] LABS: Anion Gap 12 mmol/L (10-20); BUN (Urea Nitrogen) 76 mg/dL (8.4-25.7); Calc. Creatinine Clearance 27 mL/min (70-130); Calcium 7.5 mg/dL (7.8-10.44); Carbon Dioxide 29 mmol/L (23-31); Chloride 104 mmol/L (98-107); Estimated GFR 26; Glucose 68 mg/dL (83-110); Phosphorus 4.3 mg/dL (2.3-4.7); Potassium 4.2 mmol/L (3.5-5.1); Sodium 141 mmol/L (136-145)
[2023-06-10] MEDS ORDERED: HumaLOG 300 UNITS/3 ML VIAL SC PRN (08:34)
[2023-06-10] MEDS: Thiamine HCl 200 MG/2 ML VIAL SLOW IVP SCH (09:44)
[2023-06-10] MEDS: Calcium Carbonate 600 MG + Vit D TAB PER TUBE SCH (09:45)
[2023-06-10] MEDS: Amlodipine 5 MG TAB PER TUBE SCH (09:45)
[2023-06-10] MEDS: Metoclopramide HCl 10 MG/2 ML VIAL IVP SCH ×2 (09:46→12:19)
[2023-06-10] MEDS: Dronabinol 2.5 MG CAP PO SCH (09:46)
[2023-06-10] MEDS: Tamsulosin HCl 0.4 MG CAP PO SCH (09:46)
[2023-06-10] MEDS: Zinc Sulfate 220 MG CAP PO SCH (09:46)
[2023-06-10] MEDS: Pantoprazole 40 MG VIAL IVP SCH (09:47)
[2023-06-10] MEDS ORDERED: Iron, Sodium Ferric Gluconate 250 MG in Sodium Chloride 0.9% 250 ML 250 ML IVPB SCH (10:00)
[2023-06-10 15:47] VITALS: BP 156/79; TEMP 97.6
[2023-06-10] MEDS ORDERED: Insulin Glargine 30 UNITS/0.3 ML VIAL SC SCH (21:00)
[2023-06-11] MEDS ORDERED: Thiamine 100 MG TAB PER TUBE SCH (09:00)
== END 2023-06-10 15:45 | DRG 698 ==
LOC: ERS 17:01 → 2NO 21:30 → OBSVTOIN 05-02 12:16 → T4-A 05-13 15:21 → UNDODISIN 06-03 12:13
PROVIDERS: ADMIT Student in an Organized Health Care Education/Training Program; ATTEND Internal Medicine
PROC: 4A133R1 Monitoring of Arterial Saturation, Peripheral, Percutaneous Approach (ICD-10-PCS; 2023-05-04)
PROC: 30233J1 Transfusion of Nonautologous Serum Albumin into Peripheral Vein, Percutaneous Approach (ICD-10-PCS; 2023-06-01)
PROC: 30233N1 Transfusion of Nonautologous Red Blood Cells into Peripheral Vein, Percutaneous Approach (ICD-10-PCS; 2023-06-02)
PROC: 0DH63UZ Insertion of Feeding Device into Stomach, Percutaneous Approach (ICD-10-PCS; principal; 2023-06-07)
PROC: 0DB68ZX Excision of Stomach, Via Natural or Artificial Opening Endoscopic, Diagnostic (ICD-10-PCS; 2023-06-07)
PROC: 0DB78ZX Excision of Stomach, Pylorus, Via Natural or Artificial Opening Endoscopic, Diagnostic (ICD-10-PCS; 2023-06-07)
DX: N32.0 Bladder-neck obstruction (principal); E43 Unspecified severe protein-calorie malnutrition; G93.41 Metabolic encephalopathy; N17.0 Acute kidney failure with tubular necrosis; B37.49 Other urogenital candidiasis; M86.9 Osteomyelitis, unspecified; E87.21 Acute metabolic acidosis; Z51.5 Encounter for palliative care; N13.30 Unspecified hydronephrosis; R62.7 Adult failure to thrive; E87.6 Hypokalemia; I10 Essential (primary) hypertension; E11.69 Type 2 diabetes mellitus with other specified complication; E87.5 Hyperkalemia; E11.65 Type 2 diabetes mellitus with hyperglycemia; D63.1 Anemia in chronic kidney disease; E83.42 Hypomagnesemia; R53.81 Other malaise; F32.A Depression, unspecified; E83.51 Hypocalcemia; K29.70 Gastritis, unspecified, without bleeding; N31.2 Flaccid neuropathic bladder, not elsewhere classified; R33.9 Retention of urine, unspecified; Z68.21 Body mass index [BMI] 21.0-21.9, adult; Z79.899 Other long term (current) drug therapy; Z89.411 Acquired absence of right great toe; Z79.84 Long term (current) use of oral hypoglycemic drugs
CPT/HCPCS: 36415; 36416; 36430; 36600; 51702; 70450; 70551; 71045; 74177; 76770; 76856; 80048; 80053; 80069; 80202; 80306; 81001; 82040; 82140; 82310; 82565; 82570; 82728; 82805; 83036; 83540; 83550; 83605; 83735; 84100; 84132; 84156; 84300; 84443; 84478; 84484; 84540; 85025; 85027; 86140; 86850; 86900; 86901; 87086; 88305; 93005; 94760; 95711; 95819; 95957; 96365; 97139; C9113; J0360; J0612; J0692; J1450; J1815; J2405; J2765; J2916; J2997; J3370; J3370-JW; J3411; J3475; J3480; J3490; J7050; J7070; P9016; P9047; Q0162; Q0167; Q4081; Q9967

== ENCOUNTER 2023-06-11 07:41 | Inpatient (IN) | payer MEDICARE ==
[2023-06-11 08:20] LABS: #Monocytes 0.6 thou/uL (0.11-0.59); #Neutrophils 4.7 thou/uL (1.40-6.50); %Lymphocytes 12.3 % (21.0-51.0); %Monocytes 9.7 % (0.0-10.0); %Neutrophils 77.5 % (42.0-75.0); Hematocrit 23.8 % (42.0-52.0); Hemoglobin 7.4 g/dL (14.0-18.0); Mean Corpuscular HGB CONC 31.1 g/dL (32.0-36.0); Mean Corpuscular Hemoglobin 29.8 pg (27.0-31.0); Mean Platelet Volume 10.3 fL (7.4-10.4); Platelet Count 113 10x3/uL (130-400); RBC Distribution Width 16.2 % (11.5-14.5); Red Blood Cell (RBC) Count 2.48 mill/uL (4.70-6.10); White Blood Cell (WBC) Count 6.1 10x3/uL (4.8-10.8)
[2023-06-11 08:40] LABS: ALT (SGPT) 16 U/L (8-55); AST (SGOT) 24 U/L (5-34); Albumin 3.1 g/dL (3.4-4.8); Alkaline Phosphatase 231 U/L (40-110); Anion Gap 11 mmol/L (10-20); BUN (Urea Nitrogen) 74 mg/dL (8.4-25.7); Bilirubin, Total 0.2 mg/dL (0.2-1.2); Calc. Creatinine Clearance 0 mL/min (70-130); Calcium 7.5 mg/dL (7.8-10.44); Carbon Dioxide 26 mmol/L (23-31); Chloride 107 mmol/L (98-107); Estimated GFR 26; Globulin 2.4 g/dL (2.4-3.5); Glucose 112 mg/dL (83-110); Potassium 4.4 mmol/L (3.5-5.1); Protein, Total 5.5 g/dL (5.8-8.1); Sodium 140 mmol/L (136-145)
[2023-06-11] MEDS ORDERED: Ondansetron PF 4 MG/2 ML Vial IVP PRN (10:07)
[2023-06-11] MEDS ORDERED: Ipratropium/Albuterol 3 ML NEB NEB PRN (10:10)
[2023-06-11] MEDS ORDERED: Acetaminophen 325 MG TAB PO PRN (10:29)
[2023-06-11] MEDS ORDERED: HumaLOG 300 UNITS/3 ML VIAL SC PRN (10:46)
[2023-06-11] MEDS ORDERED: Dextrose 5% in Water 1,000 ML IV PRN (10:46)
[2023-06-11] MEDS ORDERED: Glucagon 1 MG/ML KIT IM PRN (10:46)
[2023-06-11] MEDS ORDERED: Dextrose 50% Abboject 50 ML SYRINGE SLOW IVP PRN (10:46)
[2023-06-11] MEDS ORDERED: Albumin 25% 25 GM/100 ML BOT IVPB SCH (12:00)
[2023-06-11] MEDS: Sodium Chloride 0.9% 1,000 ML IV SCH (14:14)
[2023-06-11] MEDS: Albumin 25% 25 GM/100 ML BOT IVPB SCH ×2 (14:14→20:23)
[2023-06-11] MEDS: Mirtazapine 15 MG Soltab PER TUBE SCH (20:23)
[2023-06-12] MEDS: Albumin 25% 25 GM/100 ML BOT IVPB SCH ×2 (02:36→08:24)
[2023-06-12 08:13] LABS: #Monocytes 0.7 thou/uL (0.11-0.59); #Neutrophils 5.6 thou/uL (1.40-6.50); %Lymphocytes 12.7 % (21.0-51.0); %Monocytes 9.5 % (0.0-10.0); %Neutrophils 77.4 % (42.0-75.0); Hematocrit 23.7 % (42.0-52.0); Hemoglobin 7.2 g/dL (14.0-18.0); Mean Corpuscular HGB CONC 30.4 g/dL (32.0-36.0); Mean Corpuscular Hemoglobin 29.6 pg (27.0-31.0); Mean Corpuscular Volume 97.5 fl (78.0-98.0); Mean Platelet Volume 10.6 fL (7.4-10.4); Platelet Count 113 10x3/uL (130-400); RBC Distribution Width 15.9 % (11.5-14.5); Red Blood Cell (RBC) Count 2.43 mill/uL (4.70-6.10); White Blood Cell (WBC) Count 7.3 10x3/uL (4.8-10.8)
[2023-06-12] MEDS: Amlodipine 5 MG TAB PER TUBE SCH ×2 (08:24→08:50)
[2023-06-12] MEDS: Sodium Chloride 0.9% 1,000 ML IV SCH (08:24)
[2023-06-12 08:33] LABS: Phosphorus 4.2 mg/dL (2.3-4.7)
[2023-06-12 08:36] LABS: Anion Gap 16 mmol/L (10-20); BUN (Urea Nitrogen) 61 mg/dL (8.4-25.7); Calc. Creatinine Clearance 32 mL/min (70-130); Calcium 7.6 mg/dL (7.8-10.44); Carbon Dioxide 23 mmol/L (23-31); Chloride 109 mmol/L (98-107); Estimated GFR 31; Glucose 100 mg/dL (83-110); Potassium 4.2 mmol/L (3.5-5.1); Sodium 144 mmol/L (136-145)
[2023-06-12] MEDS: Dextrose 5 % And 0.9 % NaCl 1,000 ML IV SCH (12:19)
[2023-06-12] MEDS: Mirtazapine 15 MG Soltab PER TUBE SCH (20:16)
[2023-06-13] MEDS: Dextrose 5 % And 0.9 % NaCl 1,000 ML IV SCH ×2 (04:50→14:41)
[2023-06-13] MEDS: Amlodipine 5 MG TAB PER TUBE SCH (08:19)
[2023-06-13 10:27] VITALS: BMI 21.7
[2023-06-13] MEDS: Mirtazapine 15 MG Soltab PER TUBE SCH (20:48)
[2023-06-13 22:09] LABS: SARS-CoV-2 NAA Rapid Test Not Detected (NotDetected)
[2023-06-14] MEDS: Dextrose 5 % And 0.9 % NaCl 1,000 ML IV SCH ×2 (02:31→15:12)
[2023-06-14 06:36] LABS: Iron 18 ug/dL (65-175); Iron Binding Capacity, Total 91 mcg/dL (261-462)
[2023-06-14] MEDS: Amlodipine 5 MG TAB PER TUBE SCH (08:02)
[2023-06-14] MEDS: Megestrol Acetate 400 MG/10 ML UDCUP PO SCH (19:03)
[2023-06-14] MEDS: Mirtazapine 15 MG Soltab PER TUBE SCH (19:03)
[2023-06-15] MEDS: Dextrose 5 % And 0.9 % NaCl 1,000 ML IV SCH ×2 (05:41→20:40)
[2023-06-15] MEDS: Megestrol Acetate 400 MG/10 ML UDCUP PO SCH ×2 (07:54→20:50)
[2023-06-15] MEDS: Amlodipine 5 MG TAB PER TUBE SCH (07:54)
[2023-06-15] MEDS: Mirtazapine 15 MG Soltab PER TUBE SCH (20:50)
[2023-06-16] MEDS: Dextrose 5 % And 0.9 % NaCl 1,000 ML IV SCH ×2 (09:56→20:52)
[2023-06-16] MEDS: Amlodipine 5 MG TAB PER TUBE SCH (09:56)
[2023-06-16] MEDS: Megestrol Acetate 400 MG/10 ML UDCUP PO SCH ×2 (09:57→20:52)
[2023-06-16] MEDS: Mirtazapine 15 MG Soltab PER TUBE SCH (20:52)
[2023-06-16] MEDS ORDERED: hydrALAZINE 20 MG/ML VIAL SLOW IVP PRN (23:10)
[2023-06-16] MEDS ORDERED: hydrALAZINE 20 MG/ML VIAL SLOW IVP SCH (23:15)
[2023-06-17] MEDS: Amlodipine 5 MG TAB PER TUBE SCH (08:03)
[2023-06-17] MEDS: Megestrol Acetate 400 MG/10 ML UDCUP PO SCH ×2 (08:04→20:58)
[2023-06-17] MEDS ORDERED: RisperDAL M 1 MG TAB SL SCH (11:45)
[2023-06-17] MEDS: Dextrose 5 % And 0.9 % NaCl 1,000 ML IV SCH (16:11)
[2023-06-18] MEDS: Dextrose 5 % And 0.9 % NaCl 1,000 ML IV SCH ×3 (03:17→14:17)
[2023-06-18] MEDS: Megestrol Acetate 400 MG/10 ML UDCUP PO SCH ×2 (08:28→20:40)
[2023-06-18] MEDS: Amlodipine 5 MG TAB PER TUBE SCH (08:28)
[2023-06-18] MEDS: RisperDAL M 1 MG TAB SL SCH (08:28)
[2023-06-18] MEDS: Loperamide HCl 2 MG CAP PO PRN (17:27)
[2023-06-19] MEDS: Dextrose 5 % And 0.9 % NaCl 1,000 ML IV SCH (05:50)
[2023-06-19] MEDS: Amlodipine 10 MG TAB PO SCH (08:24)
[2023-06-19] MEDS: RisperDAL M 1 MG TAB SL SCH (08:24)
[2023-06-19] MEDS: Megestrol Acetate 400 MG/10 ML UDCUP PO SCH ×2 (08:24→22:24)
[2023-06-19] MEDS: Loperamide HCl 2 MG CAP PO PRN ×2 (10:47→14:51)
[2023-06-19] MEDS: HumaLOG 300 UNITS/3 ML VIAL SC PRN (12:35)
[2023-06-19] MEDS ORDERED: Saccharomyces boulardii 250 MG CAP PO SCH (15:00)
[2023-06-19] MEDS: Cholestyramine/Aspartame 4 gm Packet PO SCH ×2 (15:34→22:24)
[2023-06-20 04:40] LABS: #Monocytes 0.6 thou/uL (0.11-0.59); #Neutrophils 6.6 thou/uL (1.40-6.50); %Basophils 0.1 % (0.0-1.0); %Lymphocytes 13.7 % (21.0-51.0); %Monocytes 7.6 % (0.0-10.0); Hematocrit 22.8 % (42.0-52.0); Hemoglobin 7.1 g/dL (14.0-18.0); Mean Corpuscular HGB CONC 31.1 g/dL (32.0-36.0); Mean Corpuscular Hemoglobin 29.2 pg (27.0-31.0); Mean Corpuscular Volume 93.8 fl (78.0-98.0); Mean Platelet Volume 9.6 fL (7.4-10.4); Platelet Count 121 10x3/uL (130-400); RBC Distribution Width 14.9 % (11.5-14.5); Red Blood Cell (RBC) Count 2.43 mill/uL (4.70-6.10); White Blood Cell (WBC) Count 8.4 10x3/uL (4.8-10.8)
[2023-06-20 05:07] LABS: Anion Gap 13 mmol/L (10-20); BUN (Urea Nitrogen) 35 mg/dL (8.4-25.7); Calc. Creatinine Clearance 40 mL/min (70-130); Calcium 7.5 mg/dL (7.8-10.44); Carbon Dioxide 25 mmol/L (23-31); Chloride 109 mmol/L (98-107); Estimated GFR 41; Glucose 147 mg/dL (83-110); Magnesium 1.4 mg/dL (1.6-2.6); Potassium 3.5 mmol/L (3.5-5.1); Sodium 143 mmol/L (136-145)
[2023-06-20] MEDS ORDERED: Magnesium Sulfate In Water 4 GM in Premix 1 BAG IVPB SCH (08:30)
[2023-06-20] MEDS: Cholestyramine/Aspartame 4 gm Packet PO SCH ×3 (10:10→21:44)
[2023-06-20] MEDS: Amlodipine 10 MG TAB PO SCH (10:10)
[2023-06-20] MEDS: RisperDAL M 1 MG TAB SL SCH (10:11)
[2023-06-20] MEDS: Saccharomyces boulardii 250 MG CAP PO SCH (10:11)
[2023-06-20] MEDS: Megestrol Acetate 400 MG/10 ML UDCUP PO SCH ×2 (10:11→21:44)
[2023-06-20 15:38] LABS: Anion Gap 13 mmol/L (10-20); BUN (Urea Nitrogen) 36 mg/dL (8.4-25.7); Calc. Creatinine Clearance 39 mL/min (70-130); Carbon Dioxide 24 mmol/L (23-31); Chloride 109 mmol/L (98-107); Estimated GFR 39; Glucose 153 mg/dL (83-110); Magnesium 2.3 mg/dL (1.6-2.6); Potassium 3.5 mmol/L (3.5-5.1); Sodium 142 mmol/L (136-145)
[2023-06-21 02:36] VITALS: TEMP 98.3
[2023-06-21 05:52] LABS: Anion Gap 13 mmol/L (10-20); BUN (Urea Nitrogen) 40 mg/dL (8.4-25.7); Calc. Creatinine Clearance 38 mL/min (70-130); Calcium 7.8 mg/dL (7.8-10.44); Carbon Dioxide 25 mmol/L (23-31); Chloride 108 mmol/L (98-107); Estimated GFR 38; Glucose 136 mg/dL (83-110); Potassium 3.9 mmol/L (3.5-5.1); Sodium 142 mmol/L (136-145)
[2023-06-21] MEDS: Megestrol Acetate 400 MG/10 ML UDCUP PO SCH (08:13)
[2023-06-21] MEDS: Amlodipine 10 MG TAB PO SCH (08:13)
[2023-06-21] MEDS: Saccharomyces boulardii 250 MG CAP PO SCH (08:13)
[2023-06-21] MEDS: Cholestyramine/Aspartame 4 gm Packet PO SCH (08:14)
[2023-06-21] MEDS: RisperDAL M 1 MG TAB SL SCH (08:21)
[2023-06-21 08:54] VITALS: BP 139/61
[2023-06-21] MEDS: HumaLOG 300 UNITS/3 ML VIAL SC PRN (12:28)
== END 2023-06-21 14:08 | DRG 393 ==
LOC: ERS 07:41 → SUATTDRO 07:41 → ERHOLD 10:07 → T4-A 13:35 → OBSVTOIN 06-13 18:22
PROVIDERS: ADMIT Family Medicine; ATTEND Family Medicine
PROC: 30233J1 Transfusion of Nonautologous Serum Albumin into Peripheral Vein, Percutaneous Approach (ICD-10-PCS; principal; 2023-06-11)
DX: K94.29 Other complications of gastrostomy (principal); E43 Unspecified severe protein-calorie malnutrition; G93.41 Metabolic encephalopathy; J90 Pleural effusion, not elsewhere classified; M86.671 Other chronic osteomyelitis, right ankle and foot; F32.2 Major depressive disorder, single episode, severe without psychotic features; R18.8 Other ascites; F39 Unspecified mood [affective] disorder; R33.9 Retention of urine, unspecified; N18.9 Chronic kidney disease, unspecified; R62.7 Adult failure to thrive; E11.22 Type 2 diabetes mellitus with diabetic chronic kidney disease; I12.9 Hypertensive chronic kidney disease with stage 1 through stage 4 chronic kidney disease, or unspecified chronic kidney disease; D63.1 Anemia in chronic kidney disease; R13.12 Dysphagia, oropharyngeal phase; R53.81 Other malaise; Z68.21 Body mass index [BMI] 21.0-21.9, adult; Z79.899 Other long term (current) drug therapy; Z20.822 Contact with and (suspected) exposure to COVID-19
CPT/HCPCS: 36415; 36416; 74176; 80048; 80053; 82533; 82607; 82728; 83540; 83550; 83735; 84100; 84425; 85025; 96360; 96361; 96374; 96376; G0378; J0360; J1815; J3475; J7042; J7050; P9047

== ENCOUNTER 2023-07-05 18:08 | Inpatient (IN) | payer MEDICARE ==
[2023-07-05 19:32] LABS: Bacteria/HPF 4+ HPF (None Seen); Bilirubin Negative (Negative); Blood, Urine 3+ (Negative); CAUTI Indications for Culture Pelvic or flank pain; Clarity Extra Turbid (Clear); Glucose, Urine (Dipstick) Normal (Negative); Ketone, Urine Negative (Negative); Leukocyte 500 Leu/uL (Negative); Nitrite Negative (Negative); Protein, Urine (Dipstick) 100 mg/dL (Neg-Trace); RBC/HPF 21-50 HPF (0-3); Squamous Epithelial 0-3 HPF (0-3); Urobilinogen Normal mg/dL (Less than 2); WBC/HPF Greater than 50 HPF (0-3); Yeast-Budding 1+ HPF (None Seen); Yeast-Hyphae 1+ HPF (None Seen)
[2023-07-05 19:35] LABS: Urine Culture Reflex Yes Yes
[2023-07-05 19:53] LABS: #Monocytes 0.7 thou/uL (0.11-0.59); #Neutrophils 22.6 thou/uL (1.40-6.50); %Basophils 0.2 % (0.0-1.0); %Lymphocytes 3.1 % (21.0-51.0); %Neutrophils 93.1 % (42.0-75.0); Hemoglobin 9.1 g/dL (14.0-18.0); Mean Corpuscular HGB CONC 32.5 g/dL (32.0-36.0); Mean Corpuscular Hemoglobin 29.4 pg (27.0-31.0); Mean Corpuscular Volume 90.3 fl (78.0-98.0); Mean Platelet Volume 9.3 fL (7.4-10.4); Platelet Count 302 10x3/uL (130-400); RBC Distribution Width 14.5 % (11.5-14.5); White Blood Cell (WBC) Count 24.3 10x3/uL (4.8-10.8)
[2023-07-05 20:22] LABS: ALT (SGPT) 7 U/L (8-55); AST (SGOT) 9 U/L (5-34); Albumin 3.8 g/dL (3.4-4.8); Alkaline Phosphatase 110 U/L (40-110); Anion Gap 17 mmol/L (10-20); BUN (Urea Nitrogen) 63 mg/dL (8.4-25.7); Bilirubin, Total 0.6 mg/dL (0.2-1.2); Calc. Creatinine Clearance 0 mL/min (70-130); Calcium 8.5 mg/dL (7.8-10.44); Carbon Dioxide 27 mmol/L (23-31); Chloride 99 mmol/L (98-107); Estimated GFR 28; Globulin 3.3 g/dL (2.4-3.5); Glucose 209 mg/dL (83-110); Potassium 3.5 mmol/L (3.5-5.1); Protein, Total 7.1 g/dL (5.8-8.1); Sodium 139 mmol/L (136-145)
[2023-07-05] MEDS ORDERED: Piperacillin/Tazobactam 4.5 GM VIAL ONE (20:41)
[2023-07-05] MEDS ORDERED: Sodium Chloride 0.9% 100 ML ONE (20:42)
[2023-07-05] MEDS ORDERED: Vancomycin 1 GM/200 ML (FROZEN) BAG ONE (21:01)
[2023-07-05] MEDS ORDERED: Acetaminophen 325 MG TAB PO PRN (21:25)
[2023-07-05] MEDS ORDERED: Ondansetron PF 4 MG/2 ML Vial IVP PRN (21:25)
[2023-07-05] MEDS ORDERED: Acetaminophen 650 MG Suppository PR PRN (21:25)
[2023-07-05] MEDS ORDERED: Ondansetron ODT 4 MG TAB PO PRN (21:25)
[2023-07-05] MEDS ORDERED: Dextrose 50% Abboject 50 ML SYRINGE SLOW IVP PRN (21:37)
[2023-07-05] MEDS ORDERED: Dextrose 5% in Water 1,000 ML IV PRN (21:37)
[2023-07-05] MEDS ORDERED: HumaLOG 300 UNITS/3 ML VIAL SC PRN ×2 (21:37)
[2023-07-05] MEDS ORDERED: Glucagon 1 MG/ML KIT IM PRN (21:37)
[2023-07-05 22:55] VITALS: BMI 19.2
[2023-07-06 06:04] LABS: #Monocytes 0.7 thou/uL (0.11-0.59); #Neutrophils 20.7 thou/uL (1.40-6.50); %Basophils 0.2 % (0.0-1.0); %Lymphocytes 3.2 % (21.0-51.0); %Monocytes 2.9 % (0.0-10.0); %Neutrophils 92.8 % (42.0-75.0); Hematocrit 25.6 % (42.0-52.0); Hemoglobin 8.2 g/dL (14.0-18.0); Mean Corpuscular Hemoglobin 29.3 pg (27.0-31.0); Mean Corpuscular Volume 91.4 fl (78.0-98.0); Mean Platelet Volume 9.4 fL (7.4-10.4); Platelet Count 237 10x3/uL (130-400); RBC Distribution Width 14.5 % (11.5-14.5); White Blood Cell (WBC) Count 22.3 10x3/uL (4.8-10.8)
[2023-07-06 06:32] LABS: Anion Gap 15 mmol/L (10-20); BUN (Urea Nitrogen) 60 mg/dL (8.4-25.7); Calc. Creatinine Clearance 31 mL/min (70-130); Calcium 7.8 mg/dL (7.8-10.44); Carbon Dioxide 25 mmol/L (23-31); Chloride 101 mmol/L (98-107); Estimated GFR 33; Glucose 199 mg/dL (83-110); Potassium 2.7 mmol/L (3.5-5.1); Sodium 138 mmol/L (136-145)
[2023-07-06] MEDS ORDERED: Non-Formulary Item 1 EACH (Acetaminophen [Tylenol] 325 MG Capsule) PO PRN (08:10)
[2023-07-06] MEDS ORDERED: Cholestyramine/Aspartame 4 gm Packet PO PRN (08:10)
[2023-07-06] MEDS ORDERED: Ipratropium/Albuterol 3 ML NEB NEB PRN (08:10)
[2023-07-06] MEDS ORDERED: Acetaminophen 325 MG TAB PO PRN (08:20)
[2023-07-06] MEDS ORDERED: [UNRECOGNIZED DRUG - OTHER] PO SCH (09:00)
[2023-07-06] MEDS ORDERED: Saccharomyces boulardii 250 MG CAP PO SCH (09:00)
[2023-07-06] MEDS ORDERED: RisperDAL M 1 MG TAB PO SCH (09:00)
[2023-07-06] MEDS ORDERED: Non-Formulary Item 1 EACH (Ascorbate Calcium [Vitamin C] 500 MG Tablet) PO SCH (09:00)
[2023-07-06] MEDS: Sodium Chloride 0.9% 1,000 ML IV SCH ×2 (10:13→22:14)
[2023-07-06] MEDS: Cefepime 1 GM in Sodium Chloride 0.9% 100 ML IVPB SCH (10:18)
[2023-07-06] MEDS: Megestrol Acetate 800 MG/20 ML UDCUP PO SCH (10:22)
[2023-07-06] MEDS: Tamsulosin HCl 0.4 MG CAP PO SCH (10:24)
[2023-07-06] MEDS: Amlodipine 10 MG TAB PO SCH (10:25)
[2023-07-06] MEDS: Potassium Chloride 20 MEQ TAB PO SCH ×3 (10:27→20:02)
[2023-07-06] MEDS: Thiamine 100 MG TAB PO SCH (16:04)
[2023-07-06] MEDS: Zinc Sulfate 220 MG CAP PO SCH (16:04)
[2023-07-06] MEDS: Saccharomyces boulardii 250 MG CAP PO SCH ×2 (16:04→20:03)
[2023-07-06] MEDS: Calcium Carbonate 600 MG + Vit D TAB PO SCH ×2 (16:05→20:03)
[2023-07-06] MEDS: Multivitamin W/ Minerals 1 TAB PO SCH (16:05)
[2023-07-06] MEDS: Ascorbic Acid 500 mg Chewable Tablet PO SCH ×2 (16:05→20:02)
[2023-07-06] MEDS ORDERED: Mirtazapine 15 MG Soltab PO SCH (21:00)
[2023-07-07] MEDS: Cefepime 1 GM in Sodium Chloride 0.9% 100 ML IVPB SCH (07:58)
[2023-07-07] MEDS: Saccharomyces boulardii 250 MG CAP PO SCH ×2 (07:58→21:36)
[2023-07-07] MEDS: Amlodipine 10 MG TAB PO SCH (07:59)
[2023-07-07] MEDS: Tamsulosin HCl 0.4 MG CAP PO SCH (08:00)
[2023-07-07] MEDS: Megestrol Acetate 800 MG/20 ML UDCUP PO SCH (08:10)
[2023-07-07] MEDS: Ascorbic Acid 500 mg Chewable Tablet PO SCH ×2 (08:10→21:36)
[2023-07-07] MEDS: Calcium Carbonate 600 MG + Vit D TAB PO SCH ×2 (08:10→21:36)
[2023-07-07] MEDS: Zinc Sulfate 220 MG CAP PO SCH (08:11)
[2023-07-07] MEDS: Multivitamin W/ Minerals 1 TAB PO SCH (08:11)
[2023-07-07] MEDS: Thiamine 100 MG TAB PO SCH (08:11)
[2023-07-07] MEDS: Sodium Chloride 0.9% 1,000 ML IV SCH (08:13)
[2023-07-07] MEDS: Cefepime 2 GM in Sodium Chloride 0.9% 100 ML IVPB SCH (21:36)
[2023-07-08] MEDS: Sodium Chloride 0.9% 1,000 ML IV SCH (01:50)
[2023-07-08 08:52] LABS: #Monocytes 0.6 thou/uL (0.11-0.59); #Neutrophils 13.2 thou/uL (1.40-6.50); %Basophils 0.1 % (0.0-1.0); %Lymphocytes 6.6 % (21.0-51.0); %Neutrophils 88.6 % (42.0-75.0); Hematocrit 26.5 % (42.0-52.0); Hemoglobin 8.4 g/dL (14.0-18.0); Mean Corpuscular HGB CONC 31.7 g/dL (32.0-36.0); Mean Corpuscular Hemoglobin 29.8 pg (27.0-31.0); Mean Platelet Volume 9.7 fL (7.4-10.4); Platelet Count 203 10x3/uL (130-400); RBC Distribution Width 14.4 % (11.5-14.5); Red Blood Cell (RBC) Count 2.82 mill/uL (4.70-6.10); White Blood Cell (WBC) Count 14.9 10x3/uL (4.8-10.8)
[2023-07-08] MEDS: Tamsulosin HCl 0.4 MG CAP PO SCH (09:00)
[2023-07-08] MEDS: Cefepime 2 GM in Sodium Chloride 0.9% 100 ML IVPB SCH (09:00)
[2023-07-08] MEDS: Amlodipine 10 MG TAB PO SCH (09:00)
[2023-07-08] MEDS: Saccharomyces boulardii 250 MG CAP PO SCH ×2 (09:00→22:28)
[2023-07-08] MEDS: Ascorbic Acid 500 mg Chewable Tablet PO SCH ×2 (09:05→22:28)
[2023-07-08] MEDS: Megestrol Acetate 800 MG/20 ML UDCUP PO SCH (09:05)
[2023-07-08] MEDS: Thiamine 100 MG TAB PO SCH (09:05)
[2023-07-08] MEDS: Calcium Carbonate 600 MG + Vit D TAB PO SCH ×2 (09:05→22:28)
[2023-07-08] MEDS: Multivitamin W/ Minerals 1 TAB PO SCH (09:05)
[2023-07-08] MEDS: Zinc Sulfate 220 MG CAP PO SCH (09:06)
[2023-07-08 09:13] LABS: Anion Gap 12 mmol/L (10-20); BUN (Urea Nitrogen) 44 mg/dL (8.4-25.7); Calc. Creatinine Clearance 47 mL/min (70-130); Calcium 7.5 mg/dL (7.8-10.44); Carbon Dioxide 24 mmol/L (23-31); Chloride 110 mmol/L (98-107); Estimated GFR 55; Glucose 179 mg/dL (83-110); Potassium 3.1 mmol/L (3.5-5.1); Sodium 143 mmol/L (136-145)
[2023-07-08] MEDS ORDERED: Meropenem 1 GM in Sodium Chloride 0.9% 100 ML IVPB SCH (12:45)
[2023-07-08] MEDS: Sodium Chloride 0.45% 1,000 ML IV SCH (13:37)
[2023-07-08] MEDS: Meropenem 1 GM in Sodium Chloride 0.9% 100 ML IVPB SCH (22:29)
[2023-07-09 08:46] LABS: #Monocytes 0.7 thou/uL (0.11-0.59); #Neutrophils 12.9 thou/uL (1.40-6.50); %Basophils 0.1 % (0.0-1.0); %Lymphocytes 6.3 % (21.0-51.0); %Monocytes 4.6 % (0.0-10.0); %Neutrophils 88.2 % (42.0-75.0); Hematocrit 25.6 % (42.0-52.0); Hemoglobin 8.3 g/dL (14.0-18.0); Mean Corpuscular HGB CONC 32.4 g/dL (32.0-36.0); Mean Corpuscular Hemoglobin 30.1 pg (27.0-31.0); Mean Corpuscular Volume 92.8 fl (78.0-98.0); Mean Platelet Volume 9.3 fL (7.4-10.4); Platelet Count 202 10x3/uL (130-400); RBC Distribution Width 14.2 % (11.5-14.5); Red Blood Cell (RBC) Count 2.76 mill/uL (4.70-6.10); White Blood Cell (WBC) Count 14.6 10x3/uL (4.8-10.8)
[2023-07-09] MEDS: Meropenem 1 GM in Sodium Chloride 0.9% 100 ML IVPB SCH ×2 (08:57→16:21)
[2023-07-09] MEDS: Amlodipine 10 MG TAB PO SCH (09:03)
[2023-07-09] MEDS: Ascorbic Acid 500 mg Chewable Tablet PO SCH ×2 (09:05→21:29)
[2023-07-09] MEDS: Multivitamin W/ Minerals 1 TAB PO SCH (09:05)
[2023-07-09] MEDS: Megestrol Acetate 800 MG/20 ML UDCUP PO SCH (09:05)
[2023-07-09] MEDS: Calcium Carbonate 600 MG + Vit D TAB PO SCH ×2 (09:05→21:29)
[2023-07-09] MEDS: Saccharomyces boulardii 250 MG CAP PO SCH ×2 (09:06→21:29)
[2023-07-09] MEDS: Thiamine 100 MG TAB PO SCH (09:06)
[2023-07-09] MEDS: Zinc Sulfate 220 MG CAP PO SCH (09:06)
[2023-07-09] MEDS: Tamsulosin HCl 0.4 MG CAP PO SCH (09:06)
[2023-07-09 09:14] LABS: Anion Gap 12 mmol/L (10-20); BUN (Urea Nitrogen) 37 mg/dL (8.4-25.7); Calc. Creatinine Clearance 55 mL/min (70-130); Calcium 7.4 mg/dL (7.8-10.44); Carbon Dioxide 24 mmol/L (23-31); Chloride 111 mmol/L (98-107); Estimated GFR 66; Glucose 168 mg/dL (83-110); Sodium 144 mmol/L (136-145)
[2023-07-09] MEDS ORDERED: Potassium Chloride 40 MEQ in Premix 1 BAG IVPB SCH (10:45)
[2023-07-09] MEDS: Potassium Chloride 20 MEQ in Premix 1 BAG IVPB SCH ×2 (11:21→14:04)
[2023-07-09] MEDS: Sodium Chloride 0.45% 1,000 ML IV SCH (14:04)
[2023-07-09] MEDS: RisperDAL M 1 MG TAB SL SCH (21:29)
[2023-07-10] MEDS: Meropenem 1 GM in Sodium Chloride 0.9% 100 ML IVPB SCH ×3 (00:50→16:15)
[2023-07-10 06:06] LABS: #Monocytes 0.8 thou/uL (0.11-0.59); #Neutrophils 14.3 thou/uL (1.40-6.50); %Basophils 0.1 % (0.0-1.0); %Lymphocytes 7.3 % (21.0-51.0); %Monocytes 4.9 % (0.0-10.0); Hematocrit 25.5 % (42.0-52.0); Hemoglobin 8.1 g/dL (14.0-18.0); Mean Corpuscular HGB CONC 31.8 g/dL (32.0-36.0); Mean Corpuscular Hemoglobin 29.2 pg (27.0-31.0); Mean Corpuscular Volume 92.1 fl (78.0-98.0); Platelet Count 234 10x3/uL (130-400); Red Blood Cell (RBC) Count 2.77 mill/uL (4.70-6.10); White Blood Cell (WBC) Count 16.4 10x3/uL (4.8-10.8)
[2023-07-10 06:31] LABS: Anion Gap 14 mmol/L (10-20); BUN (Urea Nitrogen) 33 mg/dL (8.4-25.7); Calc. Creatinine Clearance 59 mL/min (70-130); Calcium 7.4 mg/dL (7.8-10.44); Carbon Dioxide 24 mmol/L (23-31); Chloride 108 mmol/L (98-107); Estimated GFR 73; Glucose 136 mg/dL (83-110); Potassium 3.4 mmol/L (3.5-5.1); Sodium 143 mmol/L (136-145)
[2023-07-10] MEDS: Sodium Chloride 0.45% 1,000 ML IV SCH ×2 (07:24→20:35)
[2023-07-10] MEDS: Megestrol Acetate 800 MG/20 ML UDCUP PO SCH (09:19)
[2023-07-10] MEDS: Tamsulosin HCl 0.4 MG CAP PO SCH (09:20)
[2023-07-10] MEDS: Amlodipine 10 MG TAB PO SCH ×2 (09:20→09:23)
[2023-07-10] MEDS: Calcium Carbonate 600 MG + Vit D TAB PO SCH ×2 (09:23→21:40)
[2023-07-10] MEDS: Ascorbic Acid 500 mg Chewable Tablet PO SCH ×2 (09:23→21:40)
[2023-07-10] MEDS: Thiamine 100 MG TAB PO SCH (09:24)
[2023-07-10] MEDS: Saccharomyces boulardii 250 MG CAP PO SCH ×2 (09:24→21:40)
[2023-07-10] MEDS: Zinc Sulfate 220 MG CAP PO SCH (09:24)
[2023-07-10] MEDS: Multivitamin W/ Minerals 1 TAB PO SCH (09:24)
[2023-07-10] MEDS: RisperDAL M 1 MG TAB SL SCH (21:40)
[2023-07-11] MEDS: Meropenem 1 GM in Sodium Chloride 0.9% 100 ML IVPB SCH ×3 (00:30→15:37)
[2023-07-11 08:41] LABS: Anion Gap 12 mmol/L (10-20); BUN (Urea Nitrogen) 29 mg/dL (8.4-25.7); Calc. Creatinine Clearance 69 mL/min (70-130); Calcium 7.2 mg/dL (7.8-10.44); Carbon Dioxide 23 mmol/L (23-31); Chloride 107 mmol/L (98-107); Estimated GFR 87; Glucose 121 mg/dL (83-110); Potassium 3.2 mmol/L (3.5-5.1); Sodium 139 mmol/L (136-145)
[2023-07-11] MEDS: Tamsulosin HCl 0.4 MG CAP PO SCH (09:05)
[2023-07-11] MEDS: Megestrol Acetate 800 MG/20 ML UDCUP PO SCH (09:31)
[2023-07-11] MEDS: Amlodipine 10 MG TAB PO SCH (09:32)
[2023-07-11] MEDS: Calcium Carbonate 600 MG + Vit D TAB PO SCH ×2 (09:32→21:42)
[2023-07-11] MEDS: Multivitamin W/ Minerals 1 TAB PO SCH (09:32)
[2023-07-11] MEDS: Ascorbic Acid 500 mg Chewable Tablet PO SCH ×2 (09:32→21:42)
[2023-07-11] MEDS: Saccharomyces boulardii 250 MG CAP PO SCH ×2 (09:33→21:42)
[2023-07-11] MEDS: Sodium Chloride 0.45% 1,000 ML IV SCH ×2 (09:35→21:41)
[2023-07-11] MEDS: Zinc Sulfate 220 MG CAP PO SCH (10:58)
[2023-07-11] MEDS: Thiamine 100 MG TAB PO SCH (10:58)
[2023-07-11] MEDS ORDERED: Potassium Chloride 40 MEQ in Premix 1 BAG IVPB SCH (18:15)
[2023-07-11] MEDS: Potassium Chloride 20 MEQ in Premix 1 BAG IVPB SCH ×2 (18:47→21:41)
[2023-07-11] MEDS: RisperDAL M 1 MG TAB SL SCH (21:42)
[2023-07-12] MEDS: Meropenem 1 GM in Sodium Chloride 0.9% 100 ML IVPB SCH ×3 (01:16→15:57)
[2023-07-12 06:28] LABS: Anion Gap 12 mmol/L (10-20); BUN (Urea Nitrogen) 27 mg/dL (8.4-25.7); Calc. Creatinine Clearance 68 mL/min (70-130); Calcium 7.3 mg/dL (7.8-10.44); Carbon Dioxide 24 mmol/L (23-31); Chloride 106 mmol/L (98-107); Estimated GFR 85; Glucose 110 mg/dL (83-110); Magnesium 1.1 mg/dL (1.6-2.6); Potassium 3.5 mmol/L (3.5-5.1); Sodium 138 mmol/L (136-145)
[2023-07-12 07:20] LABS: #Monocytes 0.7 thou/uL (0.11-0.59); #Neutrophils 9.5 thou/uL (1.40-6.50); %Basophils 0.1 % (0.0-1.0); %Monocytes 6.1 % (0.0-10.0); %Neutrophils 78.6 % (42.0-75.0); Hematocrit 25.3 % (42.0-52.0); Hemoglobin 8.2 g/dL (14.0-18.0); Mean Corpuscular HGB CONC 32.4 g/dL (32.0-36.0); Mean Corpuscular Hemoglobin 29.9 pg (27.0-31.0); Mean Corpuscular Volume 92.3 fl (78.0-98.0); Mean Platelet Volume 10.1 fL (7.4-10.4); Platelet Count 235 10x3/uL (130-400); Red Blood Cell (RBC) Count 2.74 mill/uL (4.70-6.10)
[2023-07-12 07:56] VITALS: TEMP 98.5
[2023-07-12] MEDS ORDERED: Magnesium Sulfate 4 GM in Sodium Chloride 0.9% 250 ML 250 ML IVPB SCH (08:00)
[2023-07-12] MEDS ORDERED: Magnesium Sulfate In Water 4 GM in Premix 1 BAG IVPB SCH (09:00)
[2023-07-12] MEDS: Megestrol Acetate 800 MG/20 ML UDCUP PO SCH (09:49)
[2023-07-12] MEDS: Calcium Carbonate 600 MG + Vit D TAB PO SCH (09:49)
[2023-07-12] MEDS: Amlodipine 10 MG TAB PO SCH (09:49)
[2023-07-12] MEDS: Ascorbic Acid 500 mg Chewable Tablet PO SCH (09:49)
[2023-07-12] MEDS: Multivitamin W/ Minerals 1 TAB PO SCH (09:49)
[2023-07-12] MEDS: Saccharomyces boulardii 250 MG CAP PO SCH (09:49)
[2023-07-12] MEDS: Zinc Sulfate 220 MG CAP PO SCH (09:50)
[2023-07-12] MEDS: Thiamine 100 MG TAB PO SCH (09:50)
[2023-07-12] MEDS: Tamsulosin HCl 0.4 MG CAP PO SCH (09:50)
[2023-07-12 13:08] VITALS: BP 124/64
== END 2023-07-12 18:42 | DRG 698 ==
LOC: ERS 18:08 → T4-A 20:52
PROVIDERS: ADMIT Student in an Organized Health Care Education/Training Program; ATTEND Internal Medicine
PROC: 0T2BX0Z Change Drainage Device in Bladder, External Approach (ICD-10-PCS; principal; 2023-07-05)
PROC: 3E03329 Introduction of Other Anti-infective into Peripheral Vein, Percutaneous Approach (ICD-10-PCS; 2023-07-05)
DX: T83.511A Infection and inflammatory reaction due to indwelling urethral catheter, initial encounter (principal); A41.52 Sepsis due to Pseudomonas; G93.41 Metabolic encephalopathy; N17.9 Acute kidney failure, unspecified; Z16.342 Resistance to multiple antimycobacterial drugs; Y83.8 Other surgical procedures as the cause of abnormal reaction of the patient, or of later complication, without mention of misadventure at the time of the procedure; F03.90 Unspecified dementia, unspecified severity, without behavioral disturbance, psychotic disturbance, mood disturbance, and anxiety; D64.9 Anemia, unspecified; N18.9 Chronic kidney disease, unspecified; R31.9 Hematuria, unspecified; I12.9 Hypertensive chronic kidney disease with stage 1 through stage 4 chronic kidney disease, or unspecified chronic kidney disease; N40.1 Benign prostatic hyperplasia with lower urinary tract symptoms; F32.A Depression, unspecified; R33.8 Other retention of urine; E87.6 Hypokalemia; E83.42 Hypomagnesemia; E11.22 Type 2 diabetes mellitus with diabetic chronic kidney disease; Z89.411 Acquired absence of right great toe; Z79.899 Other long term (current) drug therapy; Z98.890 Other specified postprocedural states
CPT/HCPCS: 36415; 36416; 51702; 74176; 80048; 80053; 81001; 83605; 83735; 85025; 87040; 87077; 87086; 87186; 96365; 96367; 97139; J0692; J1650; J2185; J2405; J2543; J3370-JW; J3475; J3480; J3490; J7050

== ENCOUNTER 2023-07-19 16:43 | Inpatient (IN) | payer MEDICARE ==
[2023-07-19 19:05] LABS: #Monocytes 0.8 thou/uL (0.11-0.59); #Neutrophils 9.6 thou/uL (1.40-6.50); %Basophils 0.2 % (0.0-1.0); %Lymphocytes 11.4 % (21.0-51.0); %Monocytes 6.8 % (0.0-10.0); %Neutrophils 81.2 % (42.0-75.0); Hematocrit 24.7 % (42.0-52.0); Mean Corpuscular HGB CONC 32.4 g/dL (32.0-36.0); Mean Corpuscular Hemoglobin 29.3 pg (27.0-31.0); Mean Corpuscular Volume 90.5 fl (78.0-98.0); Mean Platelet Volume 9.5 fL (7.4-10.4); Platelet Count 241 10x3/uL (130-400); RBC Distribution Width 13.5 % (11.5-14.5); Red Blood Cell (RBC) Count 2.73 mill/uL (4.70-6.10); White Blood Cell (WBC) Count 11.8 10x3/uL (4.8-10.8)
[2023-07-19 19:37] LABS: ALT (SGPT) 8 U/L (8-55); AST (SGOT) 9 U/L (5-34); Albumin 2.7 g/dL (3.4-4.8); Alkaline Phosphatase 75 U/L (40-110); Anion Gap 12 mmol/L (10-20); BUN (Urea Nitrogen) 29 mg/dL (8.4-25.7); Bilirubin, Total 0.4 mg/dL (0.2-1.2); Calc. Creatinine Clearance 0 mL/min (70-130); Calcium 7.9 mg/dL (7.8-10.44); Carbon Dioxide 26 mmol/L (23-31); Chloride 106 mmol/L (98-107); Estimated GFR 92; Globulin 3.3 g/dL (2.4-3.5); Glucose 120 mg/dL (83-110); Lipase 83 U/L (8-78); Magnesium 1.4 mg/dL (1.6-2.6); Potassium 3.3 mmol/L (3.5-5.1); Sodium 141 mmol/L (136-145)
[2023-07-19 19:38] LABS: Troponin I Less than 0.010 ng/mL (< 0.028)
[2023-07-19 19:41] LABS: Bilirubin Negative (Negative); Blood, Urine Large (Negative); Glucose, Urine (Dipstick) Negative (Negative); Ketone, Urine Negative (Negative); Leukocyte Large (Negative); Nitrite Negative (Negative); Protein, Urine (Dipstick) 100 mg/dL (Neg-Trace); Urobilinogen 0.2 mg/dL (Less than 2)
[2023-07-19 19:46] LABS: Clarity Cloudy (Clear)
[2023-07-19 19:48] LABS: CAUTI Indications for Culture Pelvic or flank pain; RBC/HPF Greater than 50 HPF (0-3); Squamous Epithelial None Seen HPF (0-3); WBC/HPF Greater Than 50 HPF (0-3)
[2023-07-19 19:49] LABS: Bacteria/HPF 4+ HPF (None Seen); Other Microscopic Description Less than 2 mL rec'd; Yeast-Budding 4+ HPF (None Seen); Yeast-Hyphae 3+ HPF (None Seen)
[2023-07-19 19:50] LABS: Urine Culture Reflex Yes Yes
[2023-07-19] MEDS ORDERED: Azithromycin 250 MG TAB ONE (20:20)
[2023-07-19] MEDS ORDERED: Potassium Chloride 20 MEQ TAB ONE (20:20)
[2023-07-19] MEDS ORDERED: cefTRIAXone (ROCEPHIN) 1 GM VIAL ONE (20:21)
[2023-07-19] MEDS ORDERED: Magnesium 2 GM/50 ML BAG (IN WATER) ONE (20:21)
[2023-07-19] MEDS ORDERED: Potassium Bicarbonate/Cit Ac 20 MEQ TAB ONE (20:29)
[2023-07-19] MEDS ORDERED: Glucagon 1 MG/ML KIT IM PRN (21:38)
[2023-07-19] MEDS ORDERED: HumaLOG 300 UNITS/3 ML VIAL SC PRN ×2 (21:38)
[2023-07-19] MEDS ORDERED: Dextrose 50% Abboject 50 ML SYRINGE SLOW IVP PRN (21:38)
[2023-07-19] MEDS ORDERED: Dextrose 5% in Water 1,000 ML IV PRN (21:38)
[2023-07-19] MEDS ORDERED: Ondansetron PF 4 MG/2 ML Vial IVP PRN (21:38)
[2023-07-19] MEDS ORDERED: Ondansetron ODT 4 MG TAB PO PRN (21:38)
[2023-07-19] MEDS ORDERED: Acetaminophen 325 MG TAB PO PRN (21:38)
[2023-07-19] MEDS ORDERED: Acetaminophen 650 MG Suppository PR PRN (21:38)
[2023-07-19 23:14] VITALS: BMI 20.2
[2023-07-19] MEDS ORDERED: Electrolyte Replacement Protocol 1 EACH FS SCH (23:15)
[2023-07-19] MEDS ORDERED: Magnesium 2 GM/50 ML(in water) 2 GM in Premix 1 BAG IVPB SCH (23:30)
[2023-07-20 06:31] LABS: #Monocytes 0.6 thou/uL (0.11-0.59); %Basophils 0.3 % (0.0-1.0); %Lymphocytes 13.8 % (21.0-51.0); %Monocytes 5.8 % (0.0-10.0); %Neutrophils 79.4 % (42.0-75.0); Hematocrit 24.7 % (42.0-52.0); Mean Corpuscular HGB CONC 32.4 g/dL (32.0-36.0); Mean Corpuscular Hemoglobin 29.6 pg (27.0-31.0); Mean Corpuscular Volume 91.5 fl (78.0-98.0); Mean Platelet Volume 9.4 fL (7.4-10.4); Platelet Count 227 10x3/uL (130-400); RBC Distribution Width 13.5 % (11.5-14.5); White Blood Cell (WBC) Count 10.1 10x3/uL (4.8-10.8)
[2023-07-20] MEDS ORDERED: Vancomycin HCl 125 MG Capsule PO SCH (06:45)
[2023-07-20 06:56] LABS: Anion Gap 12 mmol/L (10-20); BUN (Urea Nitrogen) 26 mg/dL (8.4-25.7); Calc. Creatinine Clearance 75 mL/min (70-130); Calcium 7.8 mg/dL (7.8-10.44); Carbon Dioxide 25 mmol/L (23-31); Chloride 107 mmol/L (98-107); Estimated GFR 92; Glucose 106 mg/dL (83-110); Potassium 3.3 mmol/L (3.5-5.1); Sodium 141 mmol/L (136-145)
[2023-07-20] MEDS ORDERED: Potassium Chloride 20 MEQ TAB PO SCH (08:00)
[2023-07-20] MEDS: Vancomycin HCl 125 MG Capsule PO SCH ×2 (12:36→17:18)
[2023-07-20] MEDS: Saccharomyces boulardii 250 MG CAP PO SCH (17:18)
[2023-07-20] MEDS ORDERED: Fluconazole 100 MG TAB PO SCH (18:00)
[2023-07-21] MEDS: Vancomycin HCl 125 MG Capsule PO SCH ×6 (00:45→23:19)
[2023-07-21] MEDS: Thiamine 100 MG TAB PO SCH (09:47)
[2023-07-21] MEDS: glipiZIDE 5 MG TAB PO SCH ×2 (09:47→17:14)
[2023-07-21] MEDS: Spironolactone 25 MG TAB PO SCH (09:47)
[2023-07-21] MEDS: Megestrol Acetate 800 MG/20 ML UDCUP PO SCH (09:47)
[2023-07-21] MEDS: Saccharomyces boulardii 250 MG CAP PO SCH (09:47)
[2023-07-21] MEDS: Multivitamin W/ Minerals 1 TAB PO SCH (09:47)
[2023-07-21] MEDS: Tamsulosin HCl 0.4 MG CAP PO SCH (09:47)
[2023-07-21] MEDS: Fluconazole 100 MG TAB PO SCH (19:13)
[2023-07-22] MEDS: Vancomycin HCl 125 MG Capsule PO SCH ×2 (06:09→11:25)
[2023-07-22] MEDS: Megestrol Acetate 800 MG/20 ML UDCUP PO SCH (09:16)
[2023-07-22] MEDS: Tamsulosin HCl 0.4 MG CAP PO SCH (09:16)
[2023-07-22] MEDS: Thiamine 100 MG TAB PO SCH (09:27)
[2023-07-22] MEDS: Spironolactone 25 MG TAB PO SCH (09:27)
[2023-07-22] MEDS: Saccharomyces boulardii 250 MG CAP PO SCH (09:27)
[2023-07-22] MEDS: glipiZIDE 5 MG TAB PO SCH ×2 (09:27→16:55)
[2023-07-22] MEDS: Multivitamin W/ Minerals 1 TAB PO SCH (09:27)
[2023-07-22] MEDS: Fluconazole 100 MG TAB PO SCH (16:55)
[2023-07-22] MEDS: Vancomycin HCl 125 MG/5 ML (BATCHED) UDCUP PO SCH ×3 (18:28→23:40)
[2023-07-22] MEDS ORDERED: Sodium Chloride 0.9% 1,000 ML IV SCH (21:45)
[2023-07-23] MEDS: Vancomycin HCl 125 MG/5 ML (BATCHED) UDCUP PO SCH ×3 (05:28→17:55)
[2023-07-23] MEDS: Saccharomyces boulardii 250 MG CAP PO SCH (08:53)
[2023-07-23] MEDS: Thiamine 100 MG TAB PO SCH (08:53)
[2023-07-23] MEDS: Spironolactone 25 MG TAB PO SCH (08:53)
[2023-07-23] MEDS: Megestrol Acetate 800 MG/20 ML UDCUP PO SCH (08:53)
[2023-07-23] MEDS: Tamsulosin HCl 0.4 MG CAP PO SCH (08:53)
[2023-07-23] MEDS: Multivitamin W/ Minerals 1 TAB PO SCH (08:53)
[2023-07-23] MEDS: glipiZIDE 5 MG TAB PO SCH ×2 (08:53→17:27)
[2023-07-23] MEDS: Fluconazole 100 MG TAB PO SCH (17:27)
[2023-07-24] MEDS: Vancomycin HCl 125 MG/5 ML (BATCHED) UDCUP PO SCH ×4 (01:00→17:23)
[2023-07-24 06:40] LABS: #Monocytes 0.6 thou/uL (0.11-0.59); #Neutrophils 5.8 thou/uL (1.40-6.50); %Basophils 0.4 % (0.0-1.0); %Lymphocytes 17.1 % (21.0-51.0); %Monocytes 7.2 % (0.0-10.0); %Neutrophils 74.8 % (42.0-75.0); Hematocrit 22.7 % (42.0-52.0); Mean Corpuscular HGB CONC 30.8 g/dL (32.0-36.0); Mean Corpuscular Hemoglobin 29.4 pg (27.0-31.0); Mean Corpuscular Volume 95.4 fl (78.0-98.0); Mean Platelet Volume 9.3 fL (7.4-10.4); Platelet Count 178 10x3/uL (130-400); RBC Distribution Width 13.8 % (11.5-14.5); Red Blood Cell (RBC) Count 2.38 mill/uL (4.70-6.10); White Blood Cell (WBC) Count 7.7 10x3/uL (4.8-10.8)
[2023-07-24 07:08] LABS: Anion Gap 13 mmol/L (10-20); BUN (Urea Nitrogen) 29 mg/dL (8.4-25.7); Calc. Creatinine Clearance 64 mL/min (70-130); Calcium 8.1 mg/dL (7.8-10.44); Carbon Dioxide 23 mmol/L (23-31); Chloride 106 mmol/L (98-107); Estimated GFR 80; Glucose 135 mg/dL (83-110); Potassium 3.8 mmol/L (3.5-5.1); Sodium 138 mmol/L (136-145)
[2023-07-24] MEDS: Thiamine 100 MG TAB PO SCH (09:44)
[2023-07-24] MEDS: Megestrol Acetate 800 MG/20 ML UDCUP PO SCH (09:44)
[2023-07-24] MEDS: Saccharomyces boulardii 250 MG CAP PO SCH (09:44)
[2023-07-24] MEDS: Spironolactone 25 MG TAB PO SCH (09:44)
[2023-07-24] MEDS: Multivitamin W/ Minerals 1 TAB PO SCH (09:44)
[2023-07-24] MEDS: glipiZIDE 5 MG TAB PO SCH ×2 (09:44→16:21)
[2023-07-24] MEDS: Tamsulosin HCl 0.4 MG CAP PO SCH (09:44)
[2023-07-24] MEDS ORDERED: Electrolyte Replacement Protocol FS PRN (13:00)
[2023-07-24] MEDS: Fluconazole 100 MG TAB PO SCH (16:21)
[2023-07-25] MEDS: Vancomycin HCl 125 MG/5 ML (BATCHED) UDCUP PO SCH ×4 (00:41→18:00)
[2023-07-25 06:56] LABS: Hematocrit 22.9 % (42.0-52.0); Hemoglobin 7.5 g/dL (14.0-18.0); Platelet Count 187 10x3/uL (130-400)
[2023-07-25 07:13] LABS: Phosphorus 3.3 mg/dL (2.3-4.7)
[2023-07-25 07:16] LABS: Anion Gap 12 mmol/L (10-20); BUN (Urea Nitrogen) 25 mg/dL (8.4-25.7); Calc. Creatinine Clearance 70 mL/min (70-130); Calcium 8.2 mg/dL (7.8-10.44); Carbon Dioxide 26 mmol/L (23-31); Chloride 104 mmol/L (98-107); Estimated GFR 88; Glucose 109 mg/dL (83-110); Magnesium 1.4 mg/dL (1.6-2.6); Sodium 138 mmol/L (136-145)
[2023-07-25] MEDS ORDERED: Magnesium Sulfate In Water 4 GM in Premix 1 BAG IVPB SCH (09:00)
[2023-07-25] MEDS: Megestrol Acetate 800 MG/20 ML UDCUP PO SCH (10:08)
[2023-07-25] MEDS: glipiZIDE 5 MG TAB PO SCH ×2 (10:08→17:59)
[2023-07-25] MEDS: Spironolactone 25 MG TAB PO SCH (10:09)
[2023-07-25] MEDS: Tamsulosin HCl 0.4 MG CAP PO SCH (10:09)
[2023-07-25] MEDS: Multivitamin W/ Minerals 1 TAB PO SCH (10:09)
[2023-07-25] MEDS: Thiamine 100 MG TAB PO SCH (10:09)
[2023-07-25] MEDS: Saccharomyces boulardii 250 MG CAP PO SCH (10:09)
[2023-07-25] MEDS ORDERED: PROPOFOL 200 MG/20 ML VIAL ONE (11:42)
[2023-07-25] MEDS ORDERED: SUCCINYLCHOLINE/SOD CL,ISO/PF 200 MG/10 ML SYRINGE FS ONE (11:42)
[2023-07-25] MEDS ORDERED: Ondansetron PF 4 MG/2 ML Vial ONE ×2 (11:42→12:20)
[2023-07-25] MEDS ORDERED: Dexamethasone 20 MG/5 ML VIAL ONE ×2 (11:42→12:20)
[2023-07-25] MEDS ORDERED: Fentanyl 250 MCG/5 ML VIAL ONE (11:48)
[2023-07-25] MEDS ORDERED: PROPOFOL 20 ML ONE (11:48)
[2023-07-25] MEDS ORDERED: PHENYLEPHRINE-NS 100 MCG/ML 10 ML SYRINGE ONE (12:01)
[2023-07-25] MEDS ORDERED: SUGAMMADEX SODIUM 200 MG/2 ML VIAL ONE (12:24)
[2023-07-25] MEDS ORDERED: Ondansetron HCl/PF 4 MG/2 ML Vial IVP PRN (12:52)
[2023-07-25] MEDS ORDERED: Promethazine HCl 25 MG/ML VIAL IM PRN (12:52)
[2023-07-25] MEDS: Fluconazole 100 MG TAB PO SCH (17:59)
[2023-07-26] MEDS: Vancomycin HCl 125 MG/5 ML (BATCHED) UDCUP PO SCH ×5 (05:40→20:37)
[2023-07-26 06:11] LABS: #Monocytes 0.5 thou/uL (0.11-0.59); #Neutrophils 6.2 thou/uL (1.40-6.50); %Basophils 0.1 % (0.0-1.0); %Lymphocytes 14.4 % (21.0-51.0); %Monocytes 6.2 % (0.0-10.0); %Neutrophils 78.7 % (42.0-75.0); Hematocrit 27.7 % (42.0-52.0); Hemoglobin 9.1 g/dL (14.0-18.0); Mean Corpuscular HGB CONC 32.9 g/dL (32.0-36.0); Mean Corpuscular Hemoglobin 29.4 pg (27.0-31.0); Mean Corpuscular Volume 89.6 fl (78.0-98.0); Mean Platelet Volume 9.6 fL (7.4-10.4); Platelet Count 216 10x3/uL (130-400); RBC Distribution Width 14.9 % (11.5-14.5); Red Blood Cell (RBC) Count 3.09 mill/uL (4.70-6.10); White Blood Cell (WBC) Count 7.9 10x3/uL (4.8-10.8)
[2023-07-26 06:48] LABS: Anion Gap 13 mmol/L (10-20); BUN (Urea Nitrogen) 30 mg/dL (8.4-25.7); Calc. Creatinine Clearance 54 mL/min (70-130); Calcium 8.4 mg/dL (7.8-10.44); Carbon Dioxide 24 mmol/L (23-31); Chloride 105 mmol/L (98-107); Estimated GFR 65; Glucose 190 mg/dL (83-110); Magnesium 2.1 mg/dL (1.6-2.6); Potassium 4.3 mmol/L (3.5-5.1); Sodium 138 mmol/L (136-145)
[2023-07-26] MEDS: Thiamine 100 MG TAB PO SCH (08:42)
[2023-07-26] MEDS: Tamsulosin HCl 0.4 MG CAP PO SCH (08:42)
[2023-07-26] MEDS: glipiZIDE 5 MG TAB PO SCH ×2 (08:42→16:41)
[2023-07-26] MEDS: Spironolactone 25 MG TAB PO SCH (08:42)
[2023-07-26] MEDS: Saccharomyces boulardii 250 MG CAP PO SCH (08:42)
[2023-07-26] MEDS: Megestrol Acetate 800 MG/20 ML UDCUP PO SCH (08:42)
[2023-07-26] MEDS: Multivitamin W/ Minerals 1 TAB PO SCH (08:42)
[2023-07-26] MEDS: Fluconazole 100 MG TAB PO SCH (16:41)
[2023-07-26] MEDS: Enoxaparin 40 MG (0.4 mL) SYRINGE SC SCH (20:37)
[2023-07-27] MEDS: Vancomycin HCl 125 MG/5 ML (BATCHED) UDCUP PO SCH (05:26)
[2023-07-27 06:39] LABS: Anion Gap 13 mmol/L (10-20); BUN (Urea Nitrogen) 29 mg/dL (8.4-25.7); Calc. Creatinine Clearance 59 mL/min (70-130); Calcium 8.4 mg/dL (7.8-10.44); Carbon Dioxide 27 mmol/L (23-31); Chloride 104 mmol/L (98-107); Estimated GFR 72; Glucose 106 mg/dL (83-110); Magnesium 1.9 mg/dL (1.6-2.6); Phosphorus 3.3 mg/dL (2.3-4.7); Potassium 3.8 mmol/L (3.5-5.1); Sodium 140 mmol/L (136-145)
[2023-07-27] MEDS ORDERED: Magnesium 2 GM/50 ML(in water) 2 GM in Premix 1 BAG IVPB SCH (08:00)
[2023-07-27] MEDS: Multivitamin W/ Minerals 1 TAB PO SCH (09:03)
[2023-07-27] MEDS: Tamsulosin HCl 0.4 MG CAP PO SCH (09:03)
[2023-07-27] MEDS: Thiamine 100 MG TAB PO SCH (09:03)
[2023-07-27] MEDS: Spironolactone 25 MG TAB PO SCH (09:03)
[2023-07-27] MEDS: Saccharomyces boulardii 250 MG CAP PO SCH (09:03)
[2023-07-27] MEDS: Megestrol Acetate 800 MG/20 ML UDCUP PO SCH (09:03)
[2023-07-27] MEDS: Vancomycin HCl 125 MG Capsule PO SCH ×2 (12:00→17:26)
[2023-07-27] MEDS: Fluconazole 100 MG TAB PO SCH (17:29)
[2023-07-27] MEDS: Enoxaparin 40 MG (0.4 mL) SYRINGE SC SCH (20:08)
[2023-07-28] MEDS: Vancomycin HCl 125 MG Capsule PO SCH ×4 (00:03→18:17)
[2023-07-28] MEDS: Megestrol Acetate 800 MG/20 ML UDCUP PO SCH (09:34)
[2023-07-28] MEDS: Multivitamin W/ Minerals 1 TAB PO SCH (09:34)
[2023-07-28] MEDS: Spironolactone 25 MG TAB PO SCH (09:35)
[2023-07-28] MEDS: Saccharomyces boulardii 250 MG CAP PO SCH (09:35)
[2023-07-28] MEDS: Thiamine 100 MG TAB PO SCH (09:35)
[2023-07-28] MEDS: Tamsulosin HCl 0.4 MG CAP PO SCH (09:35)
[2023-07-28] MEDS: Fluconazole 100 MG TAB PO SCH (18:17)
[2023-07-28] MEDS: Enoxaparin 40 MG (0.4 mL) SYRINGE SC SCH (20:04)
[2023-07-29] MEDS: Vancomycin HCl 125 MG Capsule PO SCH ×3 (01:00→12:55)
[2023-07-29] MEDS: Megestrol Acetate 800 MG/20 ML UDCUP PO SCH (09:15)
[2023-07-29] MEDS: Multivitamin W/ Minerals 1 TAB PO SCH (09:15)
[2023-07-29] MEDS: Saccharomyces boulardii 250 MG CAP PO SCH (09:15)
[2023-07-29] MEDS: Spironolactone 25 MG TAB PO SCH (09:16)
[2023-07-29] MEDS: Thiamine 100 MG TAB PO SCH (09:16)
[2023-07-29] MEDS: Tamsulosin HCl 0.4 MG CAP PO SCH (09:16)
[2023-07-29] MEDS: Fluconazole 100 MG TAB PO SCH (16:47)
[2023-07-29] MEDS: Enoxaparin 40 MG (0.4 mL) SYRINGE SC SCH (20:28)
[2023-07-30] MEDS: Saccharomyces boulardii 250 MG CAP PO SCH (08:35)
[2023-07-30] MEDS: Megestrol Acetate 800 MG/20 ML UDCUP PO SCH (08:35)
[2023-07-30] MEDS: Multivitamin W/ Minerals 1 TAB PO SCH (08:35)
[2023-07-30] MEDS: Spironolactone 25 MG TAB PO SCH (08:35)
[2023-07-30] MEDS: Thiamine 100 MG TAB PO SCH (08:36)
[2023-07-30] MEDS: Tamsulosin HCl 0.4 MG CAP PO SCH (08:36)
[2023-07-30 13:37] LABS: Bacteria/HPF 4+ HPF (None Seen); Bilirubin Negative (Negative); Blood, Urine 1+ (Negative); Clarity Extra Turbid (Clear); Glucose, Urine (Dipstick) Normal (Negative); Ketone, Urine Negative (Negative); Leukocyte 500 Leu/uL (Negative); Nitrite Negative (Negative); Protein, Urine (Dipstick) 70 mg/dL (Neg-Trace); Specific Gravity, Urine 1.008 (1.002-1.036); Squamous Epithelial None Seen HPF (0-3); Urobilinogen Normal mg/dL (Less than 2); WBC/HPF Greater than 50 HPF (0-3); Yeast-Budding 1+ HPF (None Seen); Yeast-Hyphae 1+ HPF (None Seen); pH, Urine 5.5 (5.0-9.0)
[2023-07-30 16:03] LABS: #Monocytes 0.6 thou/uL (0.11-0.59); #Neutrophils 8.6 thou/uL (1.40-6.50); %Basophils 0.2 % (0.0-1.0); %Lymphocytes 11.1 % (21.0-51.0); %Monocytes 6.1 % (0.0-10.0); %Neutrophils 82.2 % (42.0-75.0); Hematocrit 26.3 % (42.0-52.0); Hemoglobin 8.5 g/dL (14.0-18.0); Mean Corpuscular HGB CONC 32.3 g/dL (32.0-36.0); Mean Corpuscular Hemoglobin 29.6 pg (27.0-31.0); Mean Corpuscular Volume 91.6 fl (78.0-98.0); Mean Platelet Volume 9.1 fL (7.4-10.4); Platelet Count 215 10x3/uL (130-400); RBC Distribution Width 13.9 % (11.5-14.5); Red Blood Cell (RBC) Count 2.87 mill/uL (4.70-6.10); White Blood Cell (WBC) Count 10.4 10x3/uL (4.8-10.8)
[2023-07-30 16:30] LABS: Anion Gap 13 mmol/L (10-20); BUN (Urea Nitrogen) 31 mg/dL (8.4-25.7); Calc. Creatinine Clearance 57 mL/min (70-130); Calcium 8.4 mg/dL (7.8-10.44); Carbon Dioxide 27 mmol/L (23-31); Chloride 102 mmol/L (98-107); Estimated GFR 69; Glucose 185 mg/dL (83-110); Potassium 3.7 mmol/L (3.5-5.1); Sodium 138 mmol/L (136-145)
[2023-07-30] MEDS: Fluconazole 100 MG TAB PO SCH (17:21)
[2023-07-30] MEDS: Donepezil HCl 5 MG TAB PO SCH (21:02)
[2023-07-30] MEDS: Enoxaparin 40 MG (0.4 mL) SYRINGE SC SCH (21:02)
[2023-07-31 07:26] LABS: #Monocytes 0.5 thou/uL (0.11-0.59); #Neutrophils 10.5 thou/uL (1.40-6.50); %Basophils 0.1 % (0.0-1.0); %Lymphocytes 5.5 % (21.0-51.0); %Monocytes 4.6 % (0.0-10.0); %Neutrophils 89.3 % (42.0-75.0); Hematocrit 31.8 % (42.0-52.0); Hemoglobin 10.4 g/dL (14.0-18.0); Mean Corpuscular HGB CONC 32.7 g/dL (32.0-36.0); Mean Corpuscular Hemoglobin 29.7 pg (27.0-31.0); Mean Corpuscular Volume 90.9 fl (78.0-98.0); Mean Platelet Volume 9.4 fL (7.4-10.4); Platelet Count 214 10x3/uL (130-400); RBC Distribution Width 13.8 % (11.5-14.5); White Blood Cell (WBC) Count 11.7 10x3/uL (4.8-10.8)
[2023-07-31] MEDS: Megestrol Acetate 800 MG/20 ML UDCUP PO SCH (09:01)
[2023-07-31] MEDS: Tamsulosin HCl 0.4 MG CAP PO SCH (09:01)
[2023-07-31] MEDS: Spironolactone 25 MG TAB PO SCH (09:03)
[2023-07-31] MEDS: Saccharomyces boulardii 250 MG CAP PO SCH (09:03)
[2023-07-31] MEDS: Thiamine 100 MG TAB PO SCH (09:03)
[2023-07-31] MEDS: Multivitamin W/ Minerals 1 TAB PO SCH (09:04)
[2023-07-31] MEDS: LevoFLOXacin 500 mg/D5W 500 MG in Premix 1 BAG IVPB SCH (14:04)
[2023-07-31] MEDS: Enoxaparin 40 MG (0.4 mL) SYRINGE SC SCH ×2 (20:36→20:40)
[2023-07-31] MEDS: Donepezil HCl 5 MG TAB PO SCH (20:41)
[2023-07-31] MEDS: Fluconazole 100 MG TAB PO SCH (20:41)
[2023-08-01 04:46] LABS: #Monocytes 0.6 thou/uL (0.11-0.59); #Neutrophils 10.4 thou/uL (1.40-6.50); %Basophils 0.2 % (0.0-1.0); %Lymphocytes 9.1 % (21.0-51.0); %Monocytes 5.2 % (0.0-10.0); %Neutrophils 84.8 % (42.0-75.0); Hematocrit 26.4 % (42.0-52.0); Hemoglobin 8.8 g/dL (14.0-18.0); Mean Corpuscular HGB CONC 33.3 g/dL (32.0-36.0); Mean Corpuscular Hemoglobin 29.6 pg (27.0-31.0); Mean Corpuscular Volume 88.9 fl (78.0-98.0); Mean Platelet Volume 9.2 fL (7.4-10.4); Platelet Count 206 10x3/uL (130-400); RBC Distribution Width 13.8 % (11.5-14.5); Red Blood Cell (RBC) Count 2.97 mill/uL (4.70-6.10); White Blood Cell (WBC) Count 12.3 10x3/uL (4.8-10.8)
[2023-08-01 05:13] LABS: Anion Gap 14 mmol/L (10-20); BUN (Urea Nitrogen) 29 mg/dL (8.4-25.7); Calc. Creatinine Clearance 70 mL/min (70-130); Calcium 8.6 mg/dL (7.8-10.44); Carbon Dioxide 27 mmol/L (23-31); Chloride 102 mmol/L (98-107); Estimated GFR 90; Glucose 138 mg/dL (83-110); Potassium 3.5 mmol/L (3.5-5.1); Sodium 139 mmol/L (136-145)
[2023-08-01] MEDS ORDERED: Potassium Chloride 20 MEQ TAB PO SCH (08:00)
[2023-08-01] MEDS: Multivitamin W/ Minerals 1 TAB PO SCH (11:03)
[2023-08-01] MEDS: Megestrol Acetate 800 MG/20 ML UDCUP PO SCH (11:03)
[2023-08-01] MEDS: Tamsulosin HCl 0.4 MG CAP PO SCH (11:04)
[2023-08-01] MEDS: Thiamine 100 MG TAB PO SCH (11:04)
[2023-08-01] MEDS: Saccharomyces boulardii 250 MG CAP PO SCH (11:04)
[2023-08-01] MEDS: Spironolactone 25 MG TAB PO SCH (11:04)
[2023-08-01] MEDS: LevoFLOXacin 500 mg/D5W 500 MG in Premix 1 BAG IVPB SCH (14:56)
[2023-08-01] MEDS: Enoxaparin 40 MG (0.4 mL) SYRINGE SC SCH (20:44)
[2023-08-01] MEDS: Fluconazole 100 MG TAB PO SCH (20:47)
[2023-08-01] MEDS: Donepezil HCl 5 MG TAB PO SCH (20:47)
[2023-08-02] MEDS: Megestrol Acetate 800 MG/20 ML UDCUP PO SCH (10:14)
[2023-08-02] MEDS: Multivitamin W/ Minerals 1 TAB PO SCH (10:15)
[2023-08-02] MEDS: Spironolactone 25 MG TAB PO SCH (10:15)
[2023-08-02] MEDS: Saccharomyces boulardii 250 MG CAP PO SCH (10:15)
[2023-08-02] MEDS: Tamsulosin HCl 0.4 MG CAP PO SCH (10:15)
[2023-08-02] MEDS: Thiamine 100 MG TAB PO SCH (10:19)
[2023-08-02] MEDS ORDERED: Meropenem 1 GM in Sodium Chloride 0.9% 100 ML IVPB SCH (13:30)
[2023-08-02] MEDS: Vancomycin HCl 125 MG Capsule PO SCH ×2 (13:35→18:05)
[2023-08-02] MEDS: Fluconazole 100 MG TAB PO SCH (18:04)
[2023-08-02] MEDS: Meropenem 1 GM in Sodium Chloride 0.9% 100 ML IVPB SCH (20:11)
[2023-08-02] MEDS: Enoxaparin 40 MG (0.4 mL) SYRINGE SC SCH (20:11)
[2023-08-02] MEDS: Donepezil HCl 5 MG TAB PO SCH ×2 (20:28→20:30)
[2023-08-03] MEDS: Vancomycin HCl 125 MG Capsule PO SCH ×5 (00:43→17:56)
[2023-08-03] MEDS: Meropenem 1 GM in Sodium Chloride 0.9% 100 ML IVPB SCH ×3 (05:05→21:22)
[2023-08-03] MEDS: Megestrol Acetate 800 MG/20 ML UDCUP PO SCH (09:19)
[2023-08-03] MEDS: Multivitamin W/ Minerals 1 TAB PO SCH (09:20)
[2023-08-03] MEDS: Tamsulosin HCl 0.4 MG CAP PO SCH (09:21)
[2023-08-03] MEDS: Spironolactone 25 MG TAB PO SCH (09:21)
[2023-08-03] MEDS: Saccharomyces boulardii 250 MG CAP PO SCH (09:21)
[2023-08-03] MEDS: Thiamine 100 MG TAB PO SCH (09:21)
[2023-08-03] MEDS: Fluconazole 100 MG TAB PO SCH (17:56)
[2023-08-03] MEDS: Donepezil HCl 5 MG TAB PO SCH (21:22)
[2023-08-03] MEDS: Enoxaparin 40 MG (0.4 mL) SYRINGE SC SCH (21:22)
[2023-08-04] MEDS: Vancomycin HCl 125 MG Capsule PO SCH ×2 (01:25→06:16)
[2023-08-04] MEDS: Meropenem 1 GM in Sodium Chloride 0.9% 100 ML IVPB SCH ×3 (06:15→22:58)
[2023-08-04] MEDS: RisperDAL M 1 MG TAB SL SCH (09:11)
[2023-08-04] MEDS: Megestrol Acetate 800 MG/20 ML UDCUP PO SCH (09:11)
[2023-08-04] MEDS: Tamsulosin HCl 0.4 MG CAP PO SCH (09:11)
[2023-08-04] MEDS: Spironolactone 25 MG TAB PO SCH (09:11)
[2023-08-04] MEDS: Multivitamin W/ Minerals 1 TAB PO SCH (09:22)
[2023-08-04] MEDS: Folic Acid 1 MG TAB PO SCH (09:22)
[2023-08-04] MEDS: Saccharomyces boulardii 250 MG CAP PO SCH (09:22)
[2023-08-04] MEDS: Thiamine 100 MG TAB PO SCH (09:23)
[2023-08-04] MEDS: Vancomycin HCl 125 MG/5 ML (BATCHED) UDCUP PO SCH ×2 (14:25→18:32)
[2023-08-04] MEDS: Donepezil HCl 5 MG TAB PO SCH (21:12)
[2023-08-04] MEDS: Enoxaparin 40 MG (0.4 mL) SYRINGE SC SCH (21:12)
[2023-08-05] MEDS: Vancomycin HCl 125 MG/5 ML (BATCHED) UDCUP PO SCH ×4 (00:33→18:25)
[2023-08-05] MEDS: Meropenem 1 GM in Sodium Chloride 0.9% 100 ML IVPB SCH ×3 (05:15→21:47)
[2023-08-05] MEDS: RisperDAL M 1 MG TAB SL SCH (08:44)
[2023-08-05] MEDS: Megestrol Acetate 800 MG/20 ML UDCUP PO SCH (08:56)
[2023-08-05] MEDS: Spironolactone 25 MG TAB PO SCH (08:56)
[2023-08-05] MEDS: Folic Acid 1 MG TAB PO SCH (08:56)
[2023-08-05] MEDS: Multivitamin W/ Minerals 1 TAB PO SCH (08:56)
[2023-08-05] MEDS: Saccharomyces boulardii 250 MG CAP PO SCH (08:56)
[2023-08-05] MEDS: Thiamine 100 MG TAB PO SCH (08:57)
[2023-08-05] MEDS: Tamsulosin HCl 0.4 MG CAP PO SCH (08:57)
[2023-08-05] MEDS ORDERED: Vancomycin HCl 125 MG Capsule PO SCH (19:15)
[2023-08-05] MEDS: Enoxaparin 40 MG (0.4 mL) SYRINGE SC SCH (21:47)
[2023-08-05] MEDS: Donepezil HCl 5 MG TAB PO SCH (21:47)
[2023-08-06] MEDS: Vancomycin HCl 125 MG/5 ML (BATCHED) UDCUP PO SCH ×4 (01:58→20:02)
[2023-08-06] MEDS: Meropenem 1 GM in Sodium Chloride 0.9% 100 ML IVPB SCH ×3 (05:43→21:53)
[2023-08-06] MEDS: Saccharomyces boulardii 250 MG CAP PO SCH (07:50)
[2023-08-06] MEDS: Multivitamin W/ Minerals 1 TAB PO SCH (07:50)
[2023-08-06] MEDS: Tamsulosin HCl 0.4 MG CAP PO SCH (07:50)
[2023-08-06] MEDS: Thiamine 100 MG TAB PO SCH (07:50)
[2023-08-06] MEDS: Megestrol Acetate 800 MG/20 ML UDCUP PO SCH (07:50)
[2023-08-06] MEDS: Folic Acid 1 MG TAB PO SCH (07:50)
[2023-08-06] MEDS: Spironolactone 25 MG TAB PO SCH (07:50)
[2023-08-06] MEDS: RisperDAL M 1 MG TAB SL SCH (09:00)
[2023-08-06] MEDS: Enoxaparin 40 MG (0.4 mL) SYRINGE SC SCH (20:02)
[2023-08-06] MEDS: Donepezil HCl 5 MG TAB PO SCH (20:02)
[2023-08-07] MEDS: Vancomycin HCl 125 MG/5 ML (BATCHED) UDCUP PO SCH ×4 (02:04→20:48)
[2023-08-07] MEDS: Meropenem 1 GM in Sodium Chloride 0.9% 100 ML IVPB SCH ×3 (05:56→22:56)
[2023-08-07] MEDS: Folic Acid 1 MG TAB PO SCH (08:41)
[2023-08-07] MEDS: RisperDAL M 1 MG TAB SL SCH (08:42)
[2023-08-07] MEDS: Megestrol Acetate 800 MG/20 ML UDCUP PO SCH (08:42)
[2023-08-07] MEDS: Saccharomyces boulardii 250 MG CAP PO SCH (08:42)
[2023-08-07] MEDS: Tamsulosin HCl 0.4 MG CAP PO SCH (08:42)
[2023-08-07] MEDS: Spironolactone 25 MG TAB PO SCH (08:42)
[2023-08-07] MEDS: Thiamine 100 MG TAB PO SCH (08:42)
[2023-08-07] MEDS: Multivitamin W/ Minerals 1 TAB PO SCH (08:42)
[2023-08-07] MEDS: Enoxaparin 40 MG (0.4 mL) SYRINGE SC SCH (20:48)
[2023-08-07] MEDS: Donepezil HCl 5 MG TAB PO SCH (20:48)
[2023-08-08] MEDS: Vancomycin HCl 125 MG/5 ML (BATCHED) UDCUP PO SCH ×4 (02:00→21:04)
[2023-08-08] MEDS: Meropenem 1 GM in Sodium Chloride 0.9% 100 ML IVPB SCH ×3 (05:15→21:05)
[2023-08-08 05:59] LABS: Hematocrit 26.5 % (42.0-52.0); Hemoglobin 8.7 g/dL (14.0-18.0); Mean Corpuscular HGB CONC 32.8 g/dL (32.0-36.0); Mean Corpuscular Hemoglobin 30.3 pg (27.0-31.0); Mean Corpuscular Volume 92.3 fl (78.0-98.0); Mean Platelet Volume 9.2 fL (7.4-10.4); Platelet Count 233 10x3/uL (130-400); RBC Distribution Width 13.9 % (11.5-14.5); Red Blood Cell (RBC) Count 2.87 mill/uL (4.70-6.10); White Blood Cell (WBC) Count 10.8 10x3/uL (4.8-10.8)
[2023-08-08 06:23] LABS: Anion Gap 11 mmol/L (10-20); BUN (Urea Nitrogen) 23 mg/dL (8.4-25.7); Calc. Creatinine Clearance 87 mL/min (70-130); Calcium 8.1 mg/dL (7.8-10.44); Carbon Dioxide 28 mmol/L (23-31); Chloride 107 mmol/L (98-107); Estimated GFR 96; Glucose 127 mg/dL (83-110); Sodium 143 mmol/L (136-145)
[2023-08-08] MEDS: Potassium Chloride 20 MEQ in Premix 1 BAG IVPB SCH ×3 (08:35→13:02)
[2023-08-08] MEDS: Multivitamin W/ Minerals 1 TAB PO SCH (08:52)
[2023-08-08] MEDS: Spironolactone 25 MG TAB PO SCH (08:52)
[2023-08-08] MEDS: Folic Acid 1 MG TAB PO SCH (08:52)
[2023-08-08] MEDS: Saccharomyces boulardii 250 MG CAP PO SCH (08:52)
[2023-08-08] MEDS: RisperDAL M 1 MG TAB SL SCH (08:52)
[2023-08-08] MEDS: Megestrol Acetate 800 MG/20 ML UDCUP PO SCH (08:52)
[2023-08-08] MEDS: Tamsulosin HCl 0.4 MG CAP PO SCH (08:53)
[2023-08-08] MEDS: Thiamine 100 MG TAB PO SCH (08:53)
[2023-08-08] MEDS: Donepezil HCl 5 MG TAB PO SCH (21:04)
[2023-08-08] MEDS: Enoxaparin 40 MG (0.4 mL) SYRINGE SC SCH (21:04)
[2023-08-09] MEDS: Vancomycin HCl 125 MG/5 ML (BATCHED) UDCUP PO SCH ×4 (02:42→20:32)
[2023-08-09] MEDS: Meropenem 1 GM in Sodium Chloride 0.9% 100 ML IVPB SCH ×3 (05:05→21:02)
[2023-08-09] MEDS: Thiamine 100 MG TAB PO SCH (12:06)
[2023-08-09] MEDS: Multivitamin W/ Minerals 1 TAB PO SCH (12:06)
[2023-08-09] MEDS: Saccharomyces boulardii 250 MG CAP PO SCH (12:06)
[2023-08-09] MEDS: Tamsulosin HCl 0.4 MG CAP PO SCH (12:06)
[2023-08-09] MEDS: Spironolactone 25 MG TAB PO SCH (12:06)
[2023-08-09] MEDS: RisperDAL M 1 MG TAB SL SCH (12:06)
[2023-08-09] MEDS: Megestrol Acetate 800 MG/20 ML UDCUP PO SCH (12:06)
[2023-08-09] MEDS: Folic Acid 1 MG TAB PO SCH (12:06)
[2023-08-09] MEDS: Enoxaparin 40 MG (0.4 mL) SYRINGE SC SCH (20:32)
[2023-08-09] MEDS: Donepezil HCl 5 MG TAB PO SCH (20:32)
[2023-08-10] MEDS: Vancomycin HCl 125 MG/5 ML (BATCHED) UDCUP PO SCH ×3 (02:56→15:00)
[2023-08-10] MEDS: Multivitamin W/ Minerals 1 TAB PO SCH (08:43)
[2023-08-10] MEDS: Folic Acid 1 MG TAB PO SCH (08:43)
[2023-08-10] MEDS: Thiamine 100 MG TAB PO SCH (08:43)
[2023-08-10] MEDS: Saccharomyces boulardii 250 MG CAP PO SCH (08:43)
[2023-08-10] MEDS: Megestrol Acetate 800 MG/20 ML UDCUP PO SCH (08:43)
[2023-08-10] MEDS: RisperDAL M 1 MG TAB SL SCH (08:43)
[2023-08-10] MEDS: Spironolactone 25 MG TAB PO SCH (08:43)
[2023-08-10] MEDS: Tamsulosin HCl 0.4 MG CAP PO SCH (08:43)
[2023-08-10 15:00] VITALS: BP 100/62; TEMP 97.7
== END 2023-08-10 16:23 | DRG 356 ==
LOC: EDBD → ERS 16:43 → EDBD 16:43 → T4-A 21:25
PROVIDERS: ADMIT Student in an Organized Health Care Education/Training Program; ATTEND Internal Medicine
PROC: 0T2BX0Z Change Drainage Device in Bladder, External Approach (ICD-10-PCS; principal; 2023-07-19)
PROC: 0JB70ZZ Excision of Back Subcutaneous Tissue and Fascia, Open Approach (ICD-10-PCS; 2023-07-25)
PROC: 3E033XZ Introduction of Vasopressor into Peripheral Vein, Percutaneous Approach (ICD-10-PCS; 2023-08-01)
DX: A04.72 Enterocolitis due to Clostridium difficile, not specified as recurrent (principal); E43 Unspecified severe protein-calorie malnutrition; G93.41 Metabolic encephalopathy; L89.153 Pressure ulcer of sacral region, stage 3; J18.9 Pneumonia, unspecified organism; B37.49 Other urogenital candidiasis; N17.9 Acute kidney failure, unspecified; N12 Tubulo-interstitial nephritis, not specified as acute or chronic; B37.41 Candidal cystitis and urethritis; R64 Cachexia; Z51.5 Encounter for palliative care; I10 Essential (primary) hypertension; R33.9 Retention of urine, unspecified; N31.2 Flaccid neuropathic bladder, not elsewhere classified; F32.A Depression, unspecified; E83.42 Hypomagnesemia; E87.6 Hypokalemia; I95.9 Hypotension, unspecified; R62.7 Adult failure to thrive; F03.C0 Unspecified dementia, severe, without behavioral disturbance, psychotic disturbance, mood disturbance, and anxiety; E11.649 Type 2 diabetes mellitus with hypoglycemia without coma; B96.5 Pseudomonas (aeruginosa) (mallei) (pseudomallei) as the cause of diseases classified elsewhere; T83.511D Infection and inflammatory reaction due to indwelling urethral catheter, subsequent encounter; Z79.2 Long term (current) use of antibiotics; Z79.84 Long term (current) use of oral hypoglycemic drugs; Z79.899 Other long term (current) drug therapy; Z89.411 Acquired absence of right great toe; Z68.20 Body mass index [BMI] 20.0-20.9, adult; Z87.891 Personal history of nicotine dependence; D63.8 Anemia in other chronic diseases classified elsewhere
CPT/HCPCS: 36415; 36416; 36430; 51702; 71045; 74176; 80048; 80053; 81001; 83630; 83690; 83735; 84100; 84145; 84443; 84484; 85014; 85018; 85025; 85027; 85049; 86140; 86850; 86900; 86901; 87040; 87077; 87086; 87186; 87324; 87449; 93005; 96361; 96365; 96375; 97139; J0696; J1100; J1650; J1815; J1956; J2185; J2405; J2704; J3010; J3475; J3480; J3490; J7050; P9016; Q0162

== ENCOUNTER 2023-09-10 01:04 | Inpatient (IN) | payer MEDICARE ==
[2023-09-10] MEDS ORDERED: Cefepime 2 GM VIAL ONE (01:30)
[2023-09-10] MEDS ORDERED: NOREPINEPHRINE 8 MG/250 ML-D5W 250 ML ONE (01:44)
[2023-09-10 01:55] LABS: INR-International Normal Ratio 1.1; PTT 39.4 sec (22.9-36.1); Prothrombin Time 14.5 sec (12.0-14.7)
[2023-09-10] MEDS ORDERED: Vancomycin 1 GM in Premix 1 BAG IVPB SCH (02:00)
[2023-09-10 02:05] LABS: ALT (SGPT) Less than 7 U/L (8-55); AST (SGOT) 8 U/L (5-34); Albumin 2.2 g/dL (3.4-4.8); Alkaline Phosphatase 63 U/L (40-110); Anion Gap 17 mmol/L (10-20); BUN (Urea Nitrogen) 21 mg/dL (8.4-25.7); Bilirubin, Total 0.3 mg/dL (0.2-1.2); Calc. Creatinine Clearance 0 mL/min (70-130); Carbon Dioxide 25 mmol/L (23-31); Chloride 105 mmol/L (98-107); Estimated GFR 88; Globulin 2.5 g/dL (2.4-3.5); Glucose 178 mg/dL (83-110); Lipase 23 U/L (8-78); Protein, Total 4.7 g/dL (5.8-8.1); Sodium 145 mmol/L (136-145)
[2023-09-10 02:08] LABS: Troponin I Less than 0.010 ng/mL (< 0.028)
[2023-09-10 02:32] LABS: Calcium 6.5 mg/dL (7.8-10.44); Critical Call Chemistry NUR.JRH@0211; Potassium 2.4 mmol/L (3.5-5.1)
[2023-09-10 02:45] LABS: CK (CPK) 34 U/L (30-200); Magnesium 1.4 mg/dL (1.6-2.6)
[2023-09-10 02:51] LABS: Bilirubin Negative (Negative); Blood, Urine 3+ (Negative); CAUTI Indications for Culture Alt mental st,lethar; Clarity Turbid (Clear); Glucose, Urine (Dipstick) Normal (Negative); Ketone, Urine Negative (Negative); Leukocyte 500 Leu/uL (Negative); Nitrite 1+ (Negative); Protein, Urine (Dipstick) 70 mg/dL (Neg-Trace); RBC/HPF 21-50 HPF (0-3); Specific Gravity, Urine 1.012 (1.002-1.036); Squamous Epithelial 0-3 HPF (0-3); Urobilinogen Normal mg/dL (Less than 2); WBC/HPF Greater than 50 HPF (0-3); Yeast-Hyphae 1+ HPF (None Seen); pH, Urine 5.5 (5.0-9.0)
[2023-09-10 02:55] LABS: Critical Call Chemistry NUR.H3@0225
[2023-09-10 02:59] LABS: Bacteria/HPF 1+ HPF (None Seen); Yeast-Budding 2+ HPF (None Seen)
[2023-09-10 03:00] LABS: Urine Culture Reflex Yes Yes
[2023-09-10] MEDS ORDERED: CALCIUM GLUC 1 GM (50 ML) BAG ONE (03:12)
[2023-09-10] MEDS ORDERED: Potassium Chloride 20 MEQ (100 mL) BAG ONE (03:13)
[2023-09-10 03:20] LABS: SARS-CoV-2 NAA Rapid Test Not Detected (NotDetected)
[2023-09-10] MEDS ORDERED: Magnesium 2 GM/50 ML BAG (IN WATER) ONE (04:02)
[2023-09-10] MEDS ORDERED: Acetaminophen 650 MG Suppository PR PRN ×2 (04:20→04:26)
[2023-09-10] MEDS ORDERED: Electrolyte Replacement Protocol 1 EACH IVPB ONE (04:20)
[2023-09-10] MEDS ORDERED: Acetaminophen 325 MG (10.15 ML) UDCUP PO PRN (04:20)
[2023-09-10] MEDS ORDERED: Electrolyte Replacement Protocol 1 EACH FS PRN (04:20)
[2023-09-10] MEDS ORDERED: NOREPINEPHRINE 8 MG/250 ML-D5W 250 ML IVPB PRN (04:20)
[2023-09-10] MEDS ORDERED: Ondansetron PF 4 MG/2 ML Vial IVP PRN ×2 (04:20→04:26)
[2023-09-10] MEDS ORDERED: VANCOMYCIN IVPB PRN (04:25)
[2023-09-10] MEDS ORDERED: Ondansetron ODT 4 MG TAB PO PRN (04:26)
[2023-09-10] MEDS ORDERED: Acetaminophen 325 MG TAB PO PRN (04:26)
[2023-09-10] MEDS ORDERED: D5 1/2 NS w/20 mEq KCL 1,000 ML IV SCH (04:30)
[2023-09-10 04:32] LABS: Hematocrit 24.4 % (42.0-52.0); Hemoglobin 7.9 g/dL (14.0-18.0); Manual Diff?? YES; Mean Corpuscular HGB CONC 32.4 g/dL (32.0-36.0); Mean Corpuscular Hemoglobin 29.7 pg (27.0-31.0); Mean Corpuscular Volume 91.7 fl (78.0-98.0); Mean Platelet Volume 11.3 fL (7.4-10.4); RBC Distribution Width 14.6 % (11.5-14.5); Red Blood Cell (RBC) Count 2.66 mill/uL (4.70-6.10); White Blood Cell (WBC) Count 7.1 10x3/uL (4.8-10.8)
[2023-09-10 04:33] LABS: Delete Auto Diff?? YES; Platelet Count 89 10x3/uL (130-400)
[2023-09-10 04:56] LABS: Band 19 % (5-11); CellaVision Operator ID LAB.CLH1; Hypochromia SLIGHT = 6-15 cells HPF (0-5); Lymphocytes 1 % (21-51); Metamyelocyte 1 % (0-0); Monocytes 2 % (0-10); Neutrophil 77 % (42-75); Platelet Adequacy Comment Platelets Decreased; Polychromasia SLIGHT = 2-3 cells HPF (0-2); Total Cell Count 99
[2023-09-10 04:57] LABS: Troponin I Less than 0.010 ng/mL (< 0.028)
[2023-09-10 07:26] LABS: Anion Gap 10 mmol/L (10-20); BUN (Urea Nitrogen) 22 mg/dL (8.4-25.7); Calc. Creatinine Clearance 0 mL/min (70-130); Calcium 7.7 mg/dL (7.8-10.44); Carbon Dioxide 31 mmol/L (23-31); Chloride 104 mmol/L (98-107); Estimated GFR 80; Glucose 247 mg/dL (83-110); Sodium 142 mmol/L (136-145)
[2023-09-10 07:30] LABS: Troponin I 0.014 ng/mL (< 0.028)
[2023-09-10] MEDS ORDERED: Potassium Chloride 40 MEQ in Sodium Chloride 0.9% 250 ML 250 ML IVPB SCH (07:30)
[2023-09-10] MEDS ORDERED: Meropenem 1 GM in Sodium Chloride 0.9% 100 ML IVPB SCH ×2 (07:45→16:00)
[2023-09-10] MEDS ORDERED: Magnesium 2 GM/50 ML(in water) 2 GM in Premix 1 BAG IVPB SCH (08:00)
[2023-09-10] MEDS ORDERED: Potassium Chloride 20 MEQ TAB PO SCH (08:45)
[2023-09-10] MEDS ORDERED: Famotidine/PF 20 mg/2ml Vial SLOW IVP SCH (09:00)
[2023-09-10] MEDS ORDERED: Vancomycin (BATCH) 1.5 GM in Premix 1 BAG IVPB SCH (09:00)
[2023-09-10] MEDS ORDERED: Potassium Chloride 20 MEQ in Premix 1 BAG IVPB SCH (09:00)
[2023-09-10] MEDS ORDERED: Morphine 4 MG/ML VIAL SLOW IVP PRN (10:30)
[2023-09-10 11:14] VITALS: BMI 19.5
[2023-09-10] MEDS ORDERED: Cefepime 1 GM in Sodium Chloride 0.9% 100 ML IVPB SCH (13:00)
[2023-09-11] MEDS ORDERED: Vancomycin (BATCH) 1.25 GM in Premix 1 BAG IVPB SCH (03:00)
== END 2023-09-10 15:51 | disposition expired | DRG 871 ==
LOC: ERS 01:04 → ERHOLD 03:52 → CCU 09:56
PROVIDERS: ADMIT Student in an Organized Health Care Education/Training Program; ATTEND Internal Medicine
PROC: 3E033XZ Introduction of Vasopressor into Peripheral Vein, Percutaneous Approach (ICD-10-PCS; principal; 2023-09-10)
PROC: 3E03329 Introduction of Other Anti-infective into Peripheral Vein, Percutaneous Approach (ICD-10-PCS; 2023-09-10)
DX: A41.9 Sepsis, unspecified organism (principal); J96.20 Acute and chronic respiratory failure, unspecified whether with hypoxia or hypercapnia; L89.154 Pressure ulcer of sacral region, stage 4; R65.21 Severe sepsis with septic shock; E87.0 Hyperosmolality and hypernatremia; N39.0 Urinary tract infection, site not specified; Z16.30 Resistance to unspecified antimicrobial drugs; Z66 Do not resuscitate; R33.9 Retention of urine, unspecified; I10 Essential (primary) hypertension; E11.9 Type 2 diabetes mellitus without complications; F32.A Depression, unspecified; E87.6 Hypokalemia; E83.42 Hypomagnesemia; E83.51 Hypocalcemia; G30.9 Alzheimer's disease, unspecified; F02.80 Dementia in other diseases classified elsewhere, unspecified severity, without behavioral disturbance, psychotic disturbance, mood disturbance, and anxiety; Z89.411 Acquired absence of right great toe; Z79.899 Other long term (current) drug therapy; Z11.52 Encounter for screening for COVID-19
CPT/HCPCS: 71045; 71250; 74177; 80053; 81001; 82550; 83605; 83690; 83735; 83880; 84443; 84484; 85025; 85610; 85730; 87040; 87077; 87086; 87186; 93005; 93010; 94760; J0613; J0692; J3370-JW; J3475; J3480